=== PATIENT | female | born 1940 | race Caucasian/White ===

== ENCOUNTER → 2017-04-18 15:29 | Outpatient (REF) | payer MEDICARE, MEDICAID, SELFPAY ==
[2017-04-18 18:09] LABS: Carbon Dioxide 28 mmol/L (21.0-32.0); Chloride 119 mmol/L (98-107); Potassium 4.1 mmoL/L (3.5-5.1)
[2017-04-18 18:10] LABS: Alanine Aminotransferase 29 U/L (12-78); Albumin Level 2.7 gm/dL (3.4-5.0); Albumin/Globulin Ratio 1.1 (1.1-1.8); Alkaline Phosphatase 75 U/L (46-116); Anion Gap 11.1 mEq/L (5-15); Aspartate Amino Transferase 28 U/L (15-37); Bilirubin,Total 0.2 mg/dL (0.2-1.0); Blood Urea Nitrogen 28 mg/dL (7-18); Calcium 8.4 mg/dL (8.5-10.1); Creatinine,Serum 0.89 mg/dL (0.55-1.02); Estimated Glomerular Filt Rate 62 ml/min (>60); GFR (African American) 75 ML/MIN (>60); Globulin 2.4 gm/dl (1.3-3.2); Glucose 136 mg/dL (74-106); Total Protein,Serum 5.1 gm/dL (6.4-8.2)
[2017-04-18 18:16] LABS: Sodium 154 mmol/L (136-145)
== END ==
LOC: LAB 15:29
PROVIDERS: Visit Provider Emergency Medicine
DX: K59.00 Constipation, unspecified (principal)
CPT/HCPCS: 80053

== ENCOUNTER → 2017-04-19 08:24 | Outpatient (REF) | payer MEDICARE, MEDICAID, SELFPAY ==
[2017-04-19 12:18] LABS: Alanine Aminotransferase 24 U/L (12-78); Albumin/Globulin Ratio 1.2 (1.1-1.8); Alkaline Phosphatase 83 U/L (46-116); Anion Gap 8.9 mEq/L (5-15); Aspartate Amino Transferase 28 U/L (15-37); Bilirubin,Total 0.3 mg/dL (0.2-1.0); Blood Urea Nitrogen 25 mg/dL (7-18); Calcium 8.2 mg/dL (8.5-10.1); Carbon Dioxide 28 mmol/L (21.0-32.0); Chloride 117 mmol/L (98-107); Creatinine,Serum 0.73 mg/dL (0.55-1.02); Estimated Glomerular Filt Rate 78 ml/min (>60); GFR (African American) 94 ML/MIN (>60); Globulin 2.5 gm/dl (1.3-3.2); Glucose 69 mg/dL (74-106); Potassium 3.9 mmoL/L (3.5-5.1); Total Protein,Serum 5.5 gm/dL (6.4-8.2)
[2017-04-19 12:39] LABS: Sodium 150 mmol/L (136-145)
== END ==
LOC: LAB 08:24
PROVIDERS: Visit Provider Emergency Medicine
DX: K59.00 Constipation, unspecified (principal)
CPT/HCPCS: 80053

== ENCOUNTER → 2017-04-20 07:18 | Outpatient (REF) | payer MEDICARE, MEDICAID, SELFPAY ==
[2017-04-20 08:31] LABS: Sodium 147 mmol/L (136-145)
== END ==
LOC: LAB 07:18
PROVIDERS: Visit Provider Emergency Medicine
DX: K59.00 Constipation, unspecified (principal)
CPT/HCPCS: 84295

== ENCOUNTER 2017-04-22 14:47 | Emergency (ER) | payer MEDICARE, MEDICAID, SELFPAY ==
[2017-04-22 14:41] VITALS: BP 107/51; PULSE 61; RESP 16; TEMP 36.6; O2SAT 98; BMI 24.0
[2017-04-22 15:37] VITALS: BP 98/46; PULSE 59; RESP 16; O2SAT 95
[2017-04-22 16:30] VITALS: BP 101/54; PULSE 54; RESP 16; O2SAT 98
--- NOTE | 2017-04-22 17:02 | HMH.EDABDPAI ---
ED Disposition Clinical Impression: Constipation Qualifiers: Constipation type: unspecified constipation type Qualified Code(s): K59.00 - Constipation, unspecified Disposition: Xfer SNF Condition on Discharge: Fair Instructions: DI for Constipation Additional Instructions: Call Dr. Mendenhall or Dominick Benavides in the morning for further instructions on bowel regimen. Referrals: Bryce Mendenhall MD [Primary Care Provider] - - Critical Care Critical Care Time: No Attestation: On 04/22/17, the high probability of a clinically significant, sudden or life threatening deterioration of the following system(s) required my full and direct attention, intervention and personal management. The time I documented below is in addition to time spent performing reported procedures but includes the following listed in this critical care notation. Medical Decision Making Vital Signs: 04/22/17 14:41 04/22/17 15:37 04/22/17 16:30 Temperature 97.9 F Temperature Source Axillary Pulse Rate [Left Brachial] 61 59 L 54 L Respiratory Rate 16 16 16 Blood Pressure [Left Arm] 107/51 98/46 101/54 Blood Pressure Mean [Left Arm] 69 63 69 Blood Pressure Source [Left Arm] Automatic Cuff Automatic Cuff Automatic Cuff Blood Pressure Position [Left Arm] Right Lateral Sitting Sitting 02 Sat by Pulse Oximetry 98 95 98 Oxygen Delivery Method Room Air Room Air Room Air - Lab Data Lab Results 04/22/17 17:30: Stool Occult Blood Negative 04/22/17 18:50: WBC 4.1 L, RBC 3.74 L, Hgb 11.1 L, Hct 35.8 L, MCV 95.7, MCH 29.8, MCHC 31.1 L, RDW 15.6, Plt Count 96 L, MPV 10.8 H, Neut % (Auto) 39.0, Lymph % (Auto) 54.2 H, Mcintosh % (Auto) 4.6, Eos % (Auto) 1.8, Baso % (Auto) 0.4, Neut # (Auto) 1.6 L, Lymph # (Auto) 2.2, Mcintosh # (Auto) 0.2, Eos # (Auto) 0.1, Baso # (Auto) 0.0, Total Counted 100, Neutrophils % (Manual) 50, Lymphocytes % (Manual) 46, Monocytes % (Manual) 2, Eosinophils % (Manual) 2, Platelet Estimate Moderate decrease, Poikilocytosis 1+, Ovalocytes 1+ 04/22/17 18:50: Sodium 149 H, Potassium 4.1, Chloride 113 H, Carbon Dioxide 30, Anion Gap 10.1, BUN 15, Creatinine 0.64, Estimated Creat Clear 48, Estimated GFR 90, Est GFR ( Amer) 109, Glucose 85, Calcium 8.1 L, Total Bilirubin 0.2, AST 22, ALT 22, Alkaline Phosphatase 68, Total Protein 5.0 L, Albumin 2.3 L, Globulin 2.7, Albumin/Globulin Ratio 0.9 L, TSH 4.70 H, Free T4 0.94 Result diagrams: 04/22/17 18:50 04/22/17 18:50 Orders (Tests/Meds): ORDERS Category Date Time Status CT abdomen pelvis wo con Stat Cat Scan 04/22/17 17:28 Taken - CT Data CT Scan: Abdomen, Pelvis Time Received: 19:[address] Reviewed: Yes: I have viewed the radiologist's interpretation Findings Narrative: CT scan interpreted by [facility] radiologist. Faxed report received and reviewed: Significant amount of retained stool is present throughout the colon. Multiple stones in the right renal pelvis. Significant body wall edema and small bilateral pleural effusions. - Brandt Inquiry Pt receiving controlled substance: No Medical Decision Making Narrative: 8:15 PM: Discussed with Dr. Mendenhall. Return patient to long term and they will manage her bowel regimen. Abdominal Pain HPI - General Chief Complaint: Abdominal Pain Stated Complaint: CONSTIPATION Mode of Arrival: EMS Limitations: Altered Mental Status Description of Symptoms (Recalled from ER Triage Doc. by RN): PT HAS NOT HAD BM IN 15 DAYS PER ID REPORT - History of Present Illness HPI narrative: Patient was brought in by ambulance from long term with a report that she has not had a bowel movement in 15 days. Laxatives have been tried without results. The patient is not verbal at this time, not able to give me further information. - Related Data Home Medications Medication Instructions Recorded Confirmed Acetaminophen 500 mg PO Q4HP PRN 04/22/17 04/22/17 Alendronate Sodium 70 mg PO WEEKLY 04/22/17 04/22/17 Bisacodyl [Bisacodyl 10mg
--- NOTE | 2017-04-22 17:28 | CT_ITS ---
CT abdomen pelvis wo con CLINICAL INDICATION: ITS.REASON: no bm in 15 days ORDERING PHYSICIAN: Rio Tabor MD PATIENT AGE: 76 years COMPARISON: 03/18/2014 TECHNIQUE: Axial images obtained with sagittal and coronal reformats. PROCEDURE: Oral Contrast: None IV Contrast: None . FINDINGS: Lower thorax: Trace bilateral effusions ABDOMEN: Streak artifact from patient's arms down by her side. Stable 12 mm isodensity right hepatic lobe posteriorly consistent with a cyst. Spleen, adrenal glands, pancreas, and gallbladder have an unremarkable unenhanced appearance. There are small right renal stones present with a string of stones in the right renal pelvis measuring up to 4 mm. Linear calcification left kidney possibly within wall of the cyst. No hydronephrosis. No obstructing ureteral calculi. Dugan catheter is present within a nondistended urinary bladder. There is a significant amount of retained feces throughout the colon. There is no obvious rectal fecal impaction. There is diffuse subcutaneous edema throughout the body wall consistent with anasarca. This is more extensive on the right. Increased soft tissue density is present in the right subcostal region and could be related to a hematoma measuring 4.5 cm. There is a hemangioma involving the L1 vertebral body. No acute bony anomalies. IMPRESSION: 1. Significant amount of retained stool throughout the colon. 2. Right nephrolithiasis. 3. Body wall edema and small bilateral effusions suggesting anasarca. 4. Possible hematoma right subcostal region at the costochondral junction
[2017-04-22 17:48] LABS: Occult Blood,Stool Negative (Negative)
[2017-04-22 19:02] LABS: Basophils % 0.4 % (0.1-2.0); Eosinophils # 0.1 K/mm3 (0.0-0.4); Eosinophils % 1.8 % (0.1-12.0); Hematocrit 35.8 % (37.0-47.0); Hemoglobin 11.1 g/dL (12.2-16.2); Lymphocytes # 2.2 K/mm3 (0.7-4.5); Lymphocytes % 54.2 K/mm3 (10-50); Mean Corpuscular HGB Conc 31.1 g/dL (31.8-35.4); Mean Corpuscular Hemoglobin 29.8 pg (27.0-31.2); Mean Corpuscular Volume 95.7 fl (81-99); Mean Platelet Volume 10.8 fl (7.4-10.4); Monocytes # 0.2 K/mm3 (0.1-1.0); Monocytes % 4.6 % (1.7-9.3); Neutrophils # 1.6 K/mm3 (1.8-7.8); Platelet Count 96 K/mm3 (142-424); Red Blood Count 3.74 M/mm3 (4.20-5.40); Red Cell Distribution Width 15.6 % (11.5-17.5); White Blood Count 4.1 K/mm3 (4.8-10.8)
[2017-04-22 19:08] LABS: MANUAL DIFFERENTIAL MANUAL DIFFERENTIAL (MANUAL DIFF)
[2017-04-22 19:33] LABS: Alanine Aminotransferase 22 U/L (12-78); Albumin Level 2.3 gm/dL (3.4-5.0); Albumin/Globulin Ratio 0.9 (1.1-1.8); Alkaline Phosphatase 68 U/L (46-116); Anion Gap 10.1 mEq/L (5-15); Aspartate Amino Transferase 22 U/L (15-37); Bilirubin,Total 0.2 mg/dL (0.2-1.0); Blood Urea Nitrogen 15 mg/dL (7-18); Calcium 8.1 mg/dL (8.5-10.1); Carbon Dioxide 30 mmol/L (21.0-32.0); Chloride 113 mmol/L (98-107); Creatinine Clearance Estimated 48 mL/min (0-300); Creatinine,Serum 0.64 mg/dL (0.55-1.02); Estimated Glomerular Filt Rate 90 ml/min (>60); Free T4 (Free Thyroxine) 0.94 ng/dl (0.76-1.46); GFR (African American) 109 ML/MIN (>60); Globulin 2.7 gm/dl (1.3-3.2); Glucose 85 mg/dL (74-106); Potassium 4.1 mmoL/L (3.5-5.1); Sodium 149 mmol/L (136-145)
[2017-04-22 20:24] LABS: Eosinophils % 2 % (0-3); Lymphocytes % 46 % (10-50); Monocytes % 2 % (2-9); Neutrophils % 50 % (42-76); Platelet Estimate Moderate Decrease; Poikilocytosis 1+; Total Cells Counted 100
[2017-04-22 20:25] LABS: Ovalocytes 1+
[2017-04-22 20:46] VITALS: BP 135/67; PULSE 55; RESP 16; O2SAT 98
--- NOTE | 2017-04-22 21:00 | PC.NURSE ---
CALLED REPORT TO KOTA AT [facility].
--- NOTE | 2017-04-22 21:00 | PC.NURSE ---
CALLED [facility] FOR TRANSPORTATION
== END 2017-04-22 21:50 ==
PROVIDERS: Emergency Provider Emergency Medicine; Family Provider Emergency Medicine; PCP Emergency Medicine
DX: K59.00 Constipation, unspecified (principal); Z79.899 Other long term (current) drug therapy
CPT/HCPCS: 74176; 80053; 82272; 84439; 84443; 85007; 85025; 99283; G0328

== ENCOUNTER → 2017-07-26 13:34 | Outpatient (CLI) | payer MEDICARE, MEDICAID, SELFPAY ==
[2017-07-26 15:56] LABS: Microscopic, Urine URINE MICROSCOPIC (MICROSCOPIC)
[2017-07-26 16:21] LABS: Basophils % 0.2 % (0.1-2.0); Eosinophils % 0.1 % (0.1-12.0); Hematocrit 42.7 % (37.0-47.0); Hemoglobin 13.7 g/dL (12.2-16.2); Lymphocytes # 0.7 K/mm3 (0.7-4.5); Lymphocytes % 6.1 K/mm3 (10-50); Mean Corpuscular HGB Conc 32.1 g/dL (31.8-35.4); Mean Corpuscular Hemoglobin 31.7 pg (27.0-31.2); Mean Corpuscular Volume 98.6 fl (81-99); Mean Platelet Volume 9.8 fl (7.4-10.4); Monocytes # 0.4 K/mm3 (0.1-1.0); Monocytes % 3.4 % (1.7-9.3); Neutrophils # 10.6 K/mm3 (1.8-7.8); Neutrophils % 90.2 % (37.0-80.0); Platelet Count 117 K/mm3 (142-424); Red Blood Count 4.33 M/mm3 (4.20-5.40); Red Cell Distribution Width 12.8 % (11.5-17.5); White Blood Count 11.8 K/mm3 (4.8-10.8)
[2017-07-26 16:24] LABS: MANUAL DIFFERENTIAL MANUAL DIFFERENTIAL (MANUAL DIFF)
[2017-07-26 16:39] LABS: Appearance,Urine TURBID (Clear); Bilirubin,Urine Negative (Negative); Blood, Urine 2+ (Negative); Color,Urine YELLOW (Yellow); Glucose,Urine (UA) Negative (Negative); Ketones,Urine Negative (Negative); Leukocyte Esterase,Urine 3+ (Negative); Nitrate,Urine POSITIVE (Negative); Protein,Urine 1+ (Negative); Urobilinogen,Urine 0.2 EU/dl (0.2)
[2017-07-26 16:47] LABS: Alanine Aminotransferase 20 U/L (12-78); Albumin/Globulin Ratio 1.1 (1.1-1.8); Alkaline Phosphatase 70 U/L (46-116); Anion Gap 13.8 mEq/L (5-15); Aspartate Amino Transferase 25 U/L (15-37); Bilirubin,Total 0.3 mg/dL (0.2-1.0); Blood Urea Nitrogen 25 mg/dL (7-18); Calcium 9.1 mg/dL (8.5-10.1); Carbon Dioxide 26 mmol/L (21.0-32.0); Chloride 110 mmol/L (98-107); Creatinine,Serum 1.22 mg/dL (0.55-1.02); Estimated Glomerular Filt Rate 43 ml/min (>60); GFR (African American) 52 ML/MIN (>60); Globulin 2.8 gm/dl (1.3-3.2); Glucose 108 mg/dL (74-106); Potassium 3.8 mmoL/L (3.5-5.1); Sodium 146 mmol/L (136-145); Total Protein,Serum 5.8 gm/dL (6.4-8.2)
[2017-07-26 16:51] LABS: Bacteria,Urine 4+ /lpf; WBC,Urine 20-50 #/hpf (0-3)
[2017-07-26 17:36] LABS: Lymphocytes % 7 % (10-50); Neutrophils % 81 % (42-76); Platelet Estimate Slight Decrease; Total Cells Counted 100
[2017-07-26 17:37] LABS: Macrocytosis 1+; Toxic Granulation 1+
== END ==
PROVIDERS: Visit Provider Emergency Medicine
DX: N39.0 Urinary tract infection, site not specified (principal)
CPT/HCPCS: 80053; 81001; 85007; 85025; 87086; 87088; 87186

== ENCOUNTER → 2017-09-24 15:09 | Outpatient (CLI) | payer MEDICARE, MEDICAID, SELFPAY | PROVIDERS: Visit Provider Emergency Medicine | DX: I10 Essential (primary) hypertension (principal) ==

== ENCOUNTER 2017-09-29 10:25 | Inpatient (IN) ==
[2017-09-29 11:08] LABS: Appearance,Urine CLOUDY (Clear); Bilirubin,Urine Negative (Negative); Blood, Urine 3+ (Negative); Color,Urine YELLOW (Yellow); Glucose,Urine (UA) Negative (Negative); Ketones,Urine Negative (Negative); Leukocyte Esterase,Urine 2+ (Negative); Microscopic, Urine URINE MICROSCOPIC (MICROSCOPIC); Protein,Urine 2+ (Negative); Specific Gravity, Urine >= 1.030 (1.005-1.030); Urobilinogen,Urine 0.2 EU/dl (0.2)
--- NOTE | 2017-09-29 11:12 | Emergency Department Note ---
ED Disposition Clinical Impression: Hypernatremia, Hyperchloremia UTI (urinary tract infection) Qualifiers: Urinary tract infection type: acute cystitis Hematuria presence: without hematuria Qualified Code(s): N30.00 - Acute cystitis without hematuria Disposition: Admitted as Observation Condition on Discharge: Fair Referrals: Bryce Mendenhall MD [Primary Care Provider] - Time of Disposition: 12:45 - Critical Care Critical Care Time: Yes Attestation: On 09/29/17, the high probability of a clinically significant, sudden or life threatening deterioration of the following system(s) required my full and direct attention, intervention and personal management. The time I documented below is in addition to time spent performing reported procedures but includes the following listed in this critical care notation. Total Critical Care Time: 90 Vital system(s) involved:: Circulatory Failure My critical care processes included: Assessment & monitoring of V/S, Initial and Re-exams, Data Review/Interpretation, Coordinating Care, Medication Orders and management, Documentation Medical Decision Making - Medical Records Medical records reviewed: Yes: I reviewed the patient's medical records. - Brandt Inquiry Pt receiving controlled substance: No Vital Signs: 09/29/17 10:28 09/29/17 11:11 09/29/17 11:45 Temperature 97.9 F Temperature Source Oral Pulse Rate [Left Radial] 61 64 86 Respiratory Rate 20 20 16 Blood Pressure [Left Arm] 121/71 107/78 113/78 Blood Pressure Mean [Left Arm] 87 87 89 Blood Pressure Source [Left Arm] Automatic Cuff Automatic Cuff Automatic Cuff Blood Pressure Position [Left Arm] Sitting Supine 02 Sat by Pulse Oximetry 98 97 99 Oxygen Delivery Method Room Air 09/29/17 12:44 Temperature Temperature Source Pulse Rate [Left Radial] 71 Respiratory Rate 20 Blood Pressure [Left Arm] 133/52 Blood Pressure Mean [Left Arm] 79 Blood Pressure Source [Left Arm] Automatic Cuff Blood Pressure Position [Left Arm] Supine 02 Sat by Pulse Oximetry 100 Oxygen Delivery Method Room Air - Lab Data Lab results reviewed: Yes: I reviewed the patient's lab results. Lab Results 09/29/17 11:05: Urine Color Yellow, Urine Appearance Cloudy, Urine pH 6.0, Ur Specific [place] >= 1.030, Urine Protein 2+, Urine Glucose (UA) Negative, Urine Ketones Negative, Urine Blood 3+, Urine Nitrate Negative, Urine Bilirubin Negative, Urine Urobilinogen 0.2, Ur Leukocyte Esterase 2+ A, Urine RBC 10-20, Urine WBC 50-100, Ur Squamous Epith Cells Occasional, Urine Bacteria 1+ 09/29/17 11:20: WBC 6.1, RBC 4.61, Hgb 13.6, Hct 46.9, MCV 101.7 H, MCH 29.6, MCHC 29.1 L, RDW 13.6, Plt Count 99 L, MPV 11.2 H, Neut % (Auto) 55.9, Lymph % ( Auto) 38.0, [place] % (Auto) 3.1, Eos % (Auto) 2.4, Baso % (Auto) 0.6, Neut # (Auto ) 3.4, Lymph # (Auto) 2.3, [place] # (Auto) 0.2, Eos # (Auto) 0.2, Baso # (Auto) 0.0 09/29/17 12:00: Sodium 171 H*, Potassium 4.0, Chloride 133 H, Carbon Dioxide 31 , Anion Gap 11.0, BUN 31 H, Creatinine 0.98, Estimated Creat Clear 34, Estimated GFR 55 L, Est GFR ( Amer) 67, Glucose 94, Calcium 9.7, Total Bilirubin 0.3, AST 16, ALT 18, Alkaline Phosphatase 76, Total Protein 6.6, Albumin 3.1 L, Globulin 3.5 H, Albumin/Globulin Ratio 0.9 L 09/29/17 12:00: Lactic Acid 1.8 Result diagrams: 09/29/17 11:20 09/29/17 12:00 Orders (Tests/Meds): ED MEDICATIONS Generic Name Dose Route Start Last Admin Trade Name Holly PRN Reason Stop Dose Admin Ceftriaxone Sodium 1 gm/ 50 mls @ 100 mls/hr 09/29/17 12:45 09/29/17 12:42 Sodium Chloride IV 10/13/17 12:44 100 mls/hr Q24H FRANDY Administration Protocol Sodium Chloride 1,000 mls @ 75 mls/hr 09/29/17 12:45 09/29/17 12:45 Sod Chlor 0.45% 1000ml Bag IV 10/29/17 12:44 75 mls/hr .[id number] FRANDY Administration ORDERS Category Date Time Status Blood Culture Stat Micro 09/29/17 12:00 Received Urine Culture Stat Micro 09/29/17 11:05 Received - Physician Consults Physician Consulted: Dominick Benavides Time: 12:52 Reason -: Admission, Pt condition Comment/Response: Advised of patient's presentation and findings, agreeable with hospitalization. Requested patient to be switched from Rocephin to IV Levaquin. Weakness HPI - General Chief complaint: Weakness Stated complaint: UTI, motteling on evaristo feet Time Seen by Provider: 09/29/17 10:33 Mode of Arrival: EMS Source of Information: EMS Limitations: Pt has dementia Description of Symptoms (Recalled from ER Triage Doc. by RN): Pt to ER for further evalutation per PCP request r/t UTI and motteling on evaristo feet. - History of Present Illness HPI Narrative: This is a 77-year-old shelter female patient sent to the emergency room by Dominick Benavides who saw patient while making rounds at the shelter, concerned with possible sepsis and mottling of bilateral feet. Patient has history of chronic dementia, no information is available about patient's chronic [place] mental status. She is currently on Keflex for a UTI. MD Complaint: generalized weakness Onset (ago): unknown Duration: constant Location: generalized Migration: none Relieving factors: rest Exacerbating factors: movement Context: new medication - Related Data Home Medications Medication Instructions Recorded Confirmed Acetaminophen 500 mg PO Q4HP PRN 04/22/17 04/22/17 Alendronate Sodium 70 mg PO WEEKLY 04/22/17 04/22/17 Bisacodyl [Bisacodyl 10mg Supp] 10 mg RC DAILYP PRN 04/22/17 04/22/17 Calcium Carbonate/Vitamin D2 1 each PO BID 04/22/17 04/22/17 [Oyster Shell Calcium-Vit D Tab] Donepezil HCl [Aricept] 5 mg PO HS 04/22/17 04/22/17 Ipratropium/Albuterol Sulfate 3 ml IH Q6HP PRN 04/22/17 04/22/17 [Duoneb 3mL neb] Lactulose [Lactulose 10gm/15ml 10 gm PO DAILY PRN 04/22/17 04/22/17 Oral Soln] Levothyroxine Sodium 50 mcg PO DAILY 04/22/17 04/22/17 [Levothyroxine 50mcg (0.05mg) Tab] Loperamide HCl [Loperamide] 2 mg PO Q3HP PRN 04/22/17 04/22/17 Meloxicam 7.5 mg PO BID 04/22/17 04/22/17 Mirtazapine 45 mg PO HS 04/22/17 04/22/17 OLANZapine [Olanzapine] 5 mg PO HS 04/22/17 04/22/17 Potassium Chloride [Klor-Con 10mEq 10 meq PO DAILY 04/22/17 04/22/17 tab] Ropinirole HCl 1 mg PO BID 04/22/17 04/22/17 Sennosides [Senna] 8.6 mg PO TID 04/22/17 04/22/17 Simvastatin 10 mg PO HS 04/22/17 04/22/17 Allergies Allergy/AdvReac Type Severity Reaction Status Date / Time erythromycin base Allergy Unknown Verified 09/15/17 10:01 [From ERYTHROCIN] [facility] History I have reviewed the patient's past medical history: Yes Medical History: Reports:: Hypertension, Kidney Stones Denies:: Diabetes Mellitus Type 2 Other Medical History: Reports: Anemia - Social History Smoking Status: Unknown if ever smoked Alcohol Intake: never - Psychiatric History Expresses thoughts of harming self/others: None Suicide Plan Description: No Plan Family Hx:: Unable to obtain ROS Obtained: Yes All systems reviewed & no additional complaints, Yes Systems reviewed as appropriate & no additional complaints - Neurologic Neurologic: Reports system reviewed and no additional complaints, except as docu , Reports as per HPI, Reports weakness (Generalized) Physical Exam - General General appearance: alert, in no apparent distress - Head Head exam: atraumatic, normocephalic, normal inspection - Neck Neck exam: Present: normal inspection, full ROM, trachea midline. Absent: meningismus, lymphadenopathy - Chest Chest inspection: Present: normal inspection, symmetric chest wall rise. Absent : tenderness - Respiratory Respiratory exam: Present: normal lung sounds bilaterally. Absent: respiratory distress - Cardiovascular Cardiovascular exam: Present: regular rate, normal rhythm. Absent: JVD - Abdominal Exam Abdominal exam: Present: soft, normal bowel sounds. Absent: distention, tenderness, guarding - Extremities Exam Extremities exam: Present: normal inspection, full ROM, normal capillary refill. Absent: calf tenderness - Back Exam Back exam: Present: normal inspection. Absent: tenderness - Neurological Exam Neurological exam: Present: alert, other (Consistent with dementia, patient is verbal but confused) - Psychiatric Psychiatric exam: Present: flat affect - Skin Skin exam: Present: warm, dry, normal color, other (mottled plantar areas) - Lymphatic Lymphatic Findings: no adenopathy
[2017-09-29 11:21] LABS: Squamous Epithelial Cell,Urine Occasional #/hpf (0-5)
[2017-09-29 11:22] LABS: Bacteria,Urine 1+ /lpf; WBC,Urine 50-100 #/hpf (0-3)
[2017-09-29 11:37] LABS: Basophils % 0.6 % (0.1-2.0); Eosinophils # 0.2 K/mm3 (0.0-0.4); Eosinophils % 2.4 % (0.1-12.0); Hematocrit 46.9 % (37.0-47.0); Hemoglobin 13.6 g/dL (12.2-16.2); Lymphocytes # 2.3 K/mm3 (0.7-4.5); Mean Corpuscular HGB Conc 29.1 g/dL (31.8-35.4); Mean Corpuscular Hemoglobin 29.6 pg (27.0-31.2); Mean Corpuscular Volume 101.7 fl (81-99); Mean Platelet Volume 11.2 fl (7.4-10.4); Monocytes # 0.2 K/mm3 (0.1-1.0); Monocytes % 3.1 % (1.7-9.3); Neutrophils # 3.4 K/mm3 (1.8-7.8); Neutrophils % 55.9 % (37.0-80.0); Platelet Count 99 K/mm3 (142-424); Red Blood Count 4.61 M/mm3 (4.20-5.40); Red Cell Distribution Width 13.6 % (11.5-17.5); White Blood Count 6.1 K/mm3 (4.8-10.8)
[2017-09-29 12:36] LABS: Albumin Level 3.1 gm/dL (3.4-5.0); Albumin/Globulin Ratio 0.9 (1.1-1.8); Bilirubin,Total 0.3 mg/dL (0.2-1.0); Calcium 9.7 mg/dL (8.5-10.1); Globulin 3.5 gm/dl (1.3-3.2); Total Protein,Serum 6.6 gm/dL (6.4-8.2)
--- NOTE | 2017-09-29 13:34 | Pharmacy Consult Notes ---
[facility] Pharmacy VTE Monitoring - Patient Demographics Admission date: 09/29/17 Report Date: 09/29/17 Time: 13:33 Allergies/Adverse Reactions: Patient Allergies erythromycin base [From ERYTHROCIN] Allergy (Unknown, Verified 09/15/17 10:01) Height: 1.55 m Weight: 40.03 kg Patient Problems: Current Active Problems Hypernatremia (Acute) Hyperchloremia (Acute) UTI (urinary tract infection) (Acute) - VTE Risk Labs: VTE Related Lab Results Hgb 13.6 g/dL (12.2-16.2) 09/29/17 11:20 Hct 46.9 % (37.0-47.0) 09/29/17 11:20 Plt Count 99 K/mm3 (142-424) L 09/29/17 11:20 BUN 31 mg/dL (7-18) H 09/29/17 12:00 Creatinine 0.98 mg/dL (0.55-1.02) 09/29/17 12:00 Estimated Creat Clear 34 mL/min (0-300) 09/29/17 12:00 Was VTE Risk Assessment Performed: Yes Clinical Trial Participant: No - Prophylaxis VTE Prophylaxis Ordered?: Yes Types of VTE Prophylaxis: TEDS Knee High
[2017-09-29 19:14] LABS: Potassium 3.8 mmoL/L (3.5-5.1)
[2017-09-29 19:16] LABS: Basophils % 0.7 % (0.1-2.0); Eosinophils # 0.2 K/mm3 (0.0-0.4); Eosinophils % 3.1 % (0.1-12.0); Lymphocytes # 2.5 K/mm3 (0.7-4.5); Lymphocytes % 40.5 K/mm3 (10-50); Mean Corpuscular HGB Conc 28.8 g/dL (31.8-35.4); Mean Corpuscular Hemoglobin 28.8 pg (27.0-31.2); Mean Corpuscular Volume 100.1 fl (81-99); Mean Platelet Volume 10.9 fl (7.4-10.4); Monocytes # 0.2 K/mm3 (0.1-1.0); Neutrophils # 3.2 K/mm3 (1.8-7.8); Neutrophils % 51.7 % (37.0-80.0); Platelet Count 96 K/mm3 (142-424); Red Cell Distribution Width 13.4 % (11.5-17.5); White Blood Count 6.1 K/mm3 (4.8-10.8)
[2017-09-29 19:22] LABS: Anion Gap 8.8 mEq/L (5-15)
[2017-09-29 19:26] LABS: Calcium 8.8 mg/dL (8.5-10.1)
--- NOTE | 2017-09-30 09:01 | History & Physical Report ---
*Admission Date: 09/29/17 *Chief complaint: weakness *History of present illness: this elderly wf from [facility] who has change in mental status and was lower ext mottled and had failed op ivf at [facility] and was sent to ed for eval- she is poor historian and no specific c/o -his is a 77-year-old half-way female patient sent to the emergency room by Dominick Benavides who saw patient while making rounds at the half-way, concerned with possible sepsis and mottling of bilateral feet. Patient has history of chronic dementia, no information is available about patient's chronic base[place] mental status. She is currently on Keflex for a UTI. MD Complaint: generalized weakness [facility] History I have reviewed the patient's past medical history: Yes Medical History: Reports:: Hypertension, Kidney Stones Denies:: Diabetes Mellitus Type 1, Diabetes Mellitus Type 2 Other Medical History: Reports: Anemia, Cataracts - *Social History Smoking Status: Unknown if ever smoked Alcohol Intake: never Occupational Status: retired Housing: half-way - Psychiatric History Expresses thoughts of harming self/others: None Suicide Plan Description: No Plan *Family Hx:: Unable to obtain Review of Systems - Review of Systems Review of systems:: pertinent systems reviewed and negative unless documented below - Constitutional Reports anorexia - Eyes Denies change in vision - ENT Denies dizziness - *Cardiovascular Denies chest pain at rest - *Respiratory Denies cough - *Gastrointestinal Denies abdominal pain, Denies vomiting - *Genitourinary Denies blood in urine - *Musculoskeletal Reports joint pain, Denies joint swelling - Integumentary/Breasts Denies rash - *Neurologic Reports weakness (Generalized), Denies seizure-like activity - Psychiatric Reports confusion Meds Home Medications Medication Instructions Recorded Confirmed Type Acetaminophen 500 mg PO Q4HP PRN 04/22/17 09/29/17 History Alendronate Sodium 70 mg PO WEEKLY 04/22/17 09/29/17 History Bisacodyl [Bisacodyl 10mg Supp] 10 mg RC DAILYP PRN 04/22/17 09/29/17 History Calcium Carbonate/Vitamin D2 1 each PO BID 04/22/17 09/29/17 History [Oyster Shell Calcium-Vit D Tab] Donepezil HCl [Aricept] 5 mg PO HS 04/22/17 09/29/17 History Ipratropium/Albuterol Sulfate 3 ml IH Q6HP PRN 04/22/17 09/29/17 History [Duoneb 3mL neb] Lactulose [Lactulose 10gm/15ml 10 gm PO DAILY PRN 04/22/17 09/29/17 History Oral Soln] Levothyroxine Sodium 50 mcg PO DAILY 04/22/17 09/29/17 History [Levothyroxine 50mcg (0.05mg) Tab] Loperamide HCl [Loperamide] 2 mg PO Q3HP PRN 04/22/17 09/29/17 History Meloxicam 7.5 mg PO BID 04/22/17 09/29/17 History Mirtazapine 45 mg PO HS 04/22/17 09/29/17 History OLANZapine [Olanzapine] 2.5 mg PO HS 04/22/17 09/29/17 History Potassium Chloride [Klor-Con 10mEq 10 meq PO DAILY 04/22/17 09/29/17 History tab] Ropinirole HCl 1 mg PO BID 04/22/17 09/29/17 History Sennosides [Senna] 8.6 mg PO TID 04/22/17 09/29/17 History Simvastatin 10 mg PO HS 04/22/17 09/29/17 History Donepezil HCl [Aricept 5mg] 5 mg PO HS 09/29/17 09/29/17 History cephALEXin [Keflex 500mg Cap] 500 mg PO BID 09/29/17 09/29/17 History Allergies Allergy/AdvReac Type Severity Reaction Status Date / Time erythromycin base Allergy Unknown Verified 09/15/17 10:01 [From ERYTHROCIN] Exam Vital signs and Labs for Last 24 Hours: Temp Pulse Resp BP Pulse Ox 98.5 F 63 16 142/68 99 09/30/17 07:38 09/30/17 07:38 09/30/17 07:38 09/30/17 07:38 09/30/17 07:38 Laboratory Results - last 24 hr 09/29/17 11:05: Urine Color Yellow, Urine Appearance Cloudy, Urine pH 6.0, Ur Specific [place] >= 1.030, Urine Protein 2+, Urine Glucose (UA) Negative, Urine Ketones Negative, Urine Blood 3+, Urine Nitrate Negative, Urine Bilirubin Negative, Urine Urobilinogen 0.2, Ur Leukocyte Esterase 2+ A, Urine RBC 10-20, Urine WBC 50-100, Ur Squamous Epith Cells Occasional, Urine Bacteria 1+ 09/29/17 11:20: WBC 6.1, RBC 4.61, Hgb 13.6, Hct 46.9, MCV 101.7 H, MCH 29.6, MCHC 29.1 L, RDW 13.6, Plt Count 99 L, MPV 11.2 H, Neut % (Auto) 55.9, Lymph % ( Auto) 38.0, [place] % (Auto) 3.1, Eos % (Auto) 2.4, Baso % (Auto) 0.6, Neut # (Auto ) 3.4, Lymph # (Auto) 2.3, [place] # (Auto) 0.2, Eos # (Auto) 0.2, Baso # (Auto) 0.0 09/29/17 12:00: Sodium 171 H*, Potassium 4.0, Chloride 133 H, Carbon Dioxide 31 , Anion Gap 11.0, BUN 31 H, Creatinine 0.98, Estimated Creat Clear 34, Estimated GFR 55 L, Est GFR ( Amer) 67, Glucose 94, Calcium 9.7, Total Bilirubin 0.3, AST 16, ALT 18, Alkaline Phosphatase 76, Total Protein 6.6, Albumin 3.1 L, Globulin 3.5 H, Albumin/Globulin Ratio 0.9 L 09/29/17 12:00: Lactic Acid 1.8 09/29/17 18:50: WBC 6.1, RBC 4.50, Hgb 13.0, Hct 45.0, MCV 100.1 H, MCH 28.8, MCHC 28.8 L, RDW 13.4, Plt Count 96 L, MPV 10.9 H, Neut % (Auto) 51.7, Lymph % ( Auto) 40.5, [place] % (Auto) 4.0, Eos % (Auto) 3.1, Baso % (Auto) 0.7, Neut # (Auto ) 3.2, Lymph # (Auto) 2.5, [place] # (Auto) 0.2, Eos # (Auto) 0.2, Baso # (Auto) 0.0 09/29/17 18:50: Sodium 166 H*, Potassium 3.8, Chloride 130 H, Carbon Dioxide 31 , Anion Gap 8.8, BUN 29 H, Creatinine 0.89, Estimated Creat Clear 30, Estimated GFR 62, Est GFR ( Amer) 74, Glucose 92, Calcium 8.8 I & O for Last 24 hours: Intake & Output 09/27/17 09/28/17 09/29/17 09/30/17 11:59 11:59 11:59 11:59 Intake Total 1037 / 1037 Balance 1037 / 1037 Weight 100 lb 88 lb 4 oz - Constitutional no acute distress, cachectic - *Routine HEENT Exam Head: Present: normocephalic Eye: Present: EOMI, PERRL. Absent: conjunctival icterus ENT: Present: mucous membranes dry - *Routine Neck Exam Absent: JVD - *Routine Respiratory Exam Present: decreased breath sounds - *Routine Cardiovascular Exam Present: RRR, murmur, S4 - *Routine Abdominal Exam Present: soft - *Routine Extremities Exam Absent: calf tenderness - *Routine Skin Exam Present: intact - *Routine Neurological Exam Present: alert, CN II-XII intact - Routine Psychiatric Exam Present: unable to assess H&P: Result - Labs Labs: Short CBC 09/29/17 09/29/17 Range/Units 11:20 18:50 WBC 6.1 6.1 (4.8-10.8) K/mm3 Hgb 13.6 13.0 (12.2-16.2) g/dL Hct 46.9 45.0 (37.0-47.0) % Plt Count 99 L 96 L (142-424) K/mm3 BMP 09/29/17 09/29/17 12:00 18:50 Sodium 171 H* 166 H* Potassium 4.0 3.8 Chloride 133 H 130 H Carbon Dioxide 31 31 BUN 31 H 29 H Creatinine 0.98 0.89 Glucose 94 92 Calcium 9.7 8.8 Liver Function 09/29/17 Range/Units 12:00 Total Bilirubin 0.3 (0.2-1.0) mg/dL AST 16 (15-37) U/L ALT 18 (12-78) U/L Alkaline Phosphatase 76 (46-116) U/L Albumin 3.1 L (3.4-5.0) gm/dL Urine 09/29/17 Range/Units 11:05 Urine Color Yellow (Yellow) Urine Appearance Cloudy (Clear) Urine pH 6.0 (5.0-8.5) Ur Specific [place] >= 1.030 (1.005-1.030) Urine Protein 2+ (Negative) Urine Glucose (UA) Negative (Negative) Assessment and Plan (1) Hypernatremia Current visit: Yes Status: Acute Category: Medical Code(s): E87.0 - Hyperosmolality and hypernatremia (2) UTI (urinary tract infection) Current visit: Yes Status: Acute Qualifiers: Urinary tract infection type: acute cystitis Hematuria presence: without hematuria Qualified Code(s): N30.00 - Acute cystitis without hematuria Category: Medical Code(s): N39.0 - Urinary tract infection, site not specified
--- NOTE | 2017-09-30 10:09 | Pharmacy Consult Notes ---
[facility] Pharmacy VTE Monitoring - Patient Demographics Admission date: 09/29/17 Report Date: 09/30/17 Time: 10:09 Allergies/Adverse Reactions: Patient Allergies erythromycin base [From ERYTHROCIN] Allergy (Unknown, Verified 09/15/17 10:01) Height: 1.55 m Weight: 40.03 kg Patient Problems: Current Active Problems Hypernatremia (Acute) Hyperchloremia (Acute) UTI (urinary tract infection) (Acute) - VTE Risk Labs: VTE Related Lab Results Hgb 13.0 g/dL (12.2-16.2) 09/29/17 18:50 Hct 45.0 % (37.0-47.0) 09/29/17 18:50 Plt Count 96 K/mm3 (142-424) L 09/29/17 18:50 BUN 29 mg/dL (7-18) H 09/29/17 18:50 Creatinine 0.89 mg/dL (0.55-1.02) 09/29/17 18:50 Estimated Creat Clear 30 mL/min (0-300) 09/29/17 18:50 Was VTE Risk Assessment Performed: Yes VTE Score: 4 VTE Risk Level: Low Risk Clinical Trial Participant: No - Prophylaxis VTE Prophylaxis Ordered?: Yes Types of VTE Prophylaxis: Pharmacological Pharmacologic Type: Enoxaparin
[2017-09-30 11:17] LABS: Anion Gap 12.7 mEq/L (5-15); Calcium 8.4 mg/dL (8.5-10.1); Potassium 3.7 mmoL/L (3.5-5.1); T4 (Thyroxine) 9.9 ug/dl (4.7-13.3); Thyroid Stimulating Hormone 0.26 uIU/ml (0.358-3.740)
--- NOTE | 2017-10-01 10:06 | Progress Note ---
Internal Medicine - PN: Subj *Date: 10/01/17 *Time: 10:03 Interval history: pt doing better but has low plts and will check doppler and stop lovenox Exam Vital signs and Labs for Last 24 Hours: Temp Pulse Resp BP Pulse Ox 97.8 F 66 18 123/54 97 10/01/17 07:49 10/01/17 07:49 10/01/17 07:49 10/01/17 07:49 10/01/17 07:49 Laboratory Results - last 24 hr 09/30/17 10:35: Sodium 159 H*, Potassium 3.7, Chloride 124 H, Carbon Dioxide 26 , Anion Gap 12.7, BUN 24 H, Creatinine 0.78, Estimated Creat Clear 30, Estimated GFR 72, Est GFR ( Amer) 87, Glucose 81, Calcium 8.4 L, TSH 0.26 L D, Thyroxine (T4) 9.9 10/01/17 05:57: Plt Count 81 L I & O for Last 24 hours: Intake & Output 09/28/17 09/29/17 09/30/17 10/01/17 11:59 11:59 11:59 11:59 Intake Total 1037 / 1037 2540 / 2540 Balance 1037 / 1037 2540 / 2540 Weight 100 lb 88 lb 4 oz 92 lb 9 oz Microbiology Reports for the Last 24 Hours: Microbiology 09/29/17 11:05 Urine,Catheterized Urine Culture - Preliminary - Constitutional no acute distress - *Routine HEENT Exam Head: Present: normocephalic Eye: Present: EOMI, PERRL ENT: Present: mucous membranes dry - *Routine Neck Exam Absent: JVD - *Routine Respiratory Exam Present: decreased breath sounds - *Routine Cardiovascular Exam Present: RRR, murmur - *Routine Abdominal Exam Present: soft - *Routine Extremities Exam Present: tenderness Comments: swollen lower ext with skin tear - *Routine Skin Exam Absent: lesions - *Routine Neurological Exam Present: alert, CN II-XII intact - Routine Psychiatric Exam Present: unable to assess Assessment and Plan (1) Hypernatremia Current visit: Yes Status: Acute Category: Medical Code(s): E87.0 - Hyperosmolality and hypernatremia (2) UTI (urinary tract infection) Current visit: Yes Status: Acute Qualifiers: Urinary tract infection type: acute cystitis Hematuria presence: without hematuria Qualified Code(s): N30.00 - Acute cystitis without hematuria Category: Medical Code(s): N39.0 - Urinary tract infection, site not specified
[2017-10-01 10:34] LABS: Anion Gap 6.6 mEq/L (5-15); Calcium 8.1 mg/dL (8.5-10.1); Potassium 3.6 mmoL/L (3.5-5.1)
--- NOTE | 2017-10-01 11:39 | Non-Invasive Vascular Report ---
"Venous Exam IMPRESSIONS Deep vein thrombosis involving the right common femoral vein, right femoral vein, right popliteal vein, right saphenofemoral junction, right profunda femoral, left common femoral vein, left femoral vein, Left saphenofemoral junction, and Left profunda femoral Complete lower extremity venous duplex evaluation. Doppler flow study including spectral analysis, color and oliveira scale imaging. Location: Bedside. Patient status: Inpatient. Tables: Venous flow and imaging: + + + + |Location |Overall |Flow properties | + + + + |Right common femoral |Partially |Diminished phasicity; | | |occluded |spontaneous; diminished | | | |augmentation; | | | |noncompressible | + + + + |Right saphenofemoral |Totally occluded |Noncompressible | |junction | | | + + + + |Right profunda femoral |Partially |Noncompressible | | |occluded | | + + + + |Right femoral |Partially |Diminished phasicity; not | | |occluded |spontaneous; diminished | | | |augmentation; | | | |noncompressible; no reflux | + + + + |Right greater saphenous |Patent |Normal phasicity; | | | |spontaneous; normal | | | |augmentation; compressible | + + + + |Right popliteal |Totally occluded |Diminished phasicity; | | | |spontaneous; diminished | | | |augmentation; | | | |noncompressible | + + + + |Right posterior tibial |Patent |Compressible | + + + + |Right peroneal |Patent |Compressible | + + + + |Right gastrocnemius |Patent |Compressible | + + + + |Right soleal |Patent |Compressible | + + + + |Left common femoral |Partially |Diminished phasicity; | | |occluded |spontaneous; normal | | | |augmentation; | | | |noncompressible | + + + + |Left saphenofemoral |Patent |Compressible | |junction | | | + + + + |Left profunda femoral |Partially |Noncompressible | | |occluded | | + + + + |Left femoral |Partially |Diminished phasicity; | | |occluded |diminished spontaneity; | | | |normal augmentation; | | | |noncompressible | + + + + |Left greater saphenous |Patent |Normal phasicity; | | | |spontaneous; normal | | | |augmentation; compressible | + + + + |Left popliteal |Patent |Normal phasicity; | | | |spontaneous; normal | | | |augmentation; compressible | + + + + |Left posterior tibial |Patent |Compressible | + + + + |Left peroneal |Patent |Compressible | + + + + |Left gastrocnemius |Patent |Compressible | + + + + |Left soleal |Patent |Compressible | + + + + (Report amended ) Electronically signed by: Km Franz [id number]"
[2017-10-02 08:22] VITALS: BP 151/90
--- NOTE | 2017-10-02 08:59 | Discharge Summary ---
General - General Admission date:: 09/29/17 Discharge date: 10/02/17 HPI HPI: this elderly wf from [facility] who has change in mental status and was lower ext mottled and had failed op ivf at [facility] and was sent to ed for eval- she is poor historian and no specific c/o -his is a 77-year-old [facility] female patient sent to the emergency room by Dominick Benavides who saw patient while making rounds at the [facility], concerned with possible sepsis and mottling of bilateral feet. Patient has history of chronic dementia, no information is available about patient's chronic [place] mental status. She is currently on Keflex for a UTI. MD Complaint: generalized weakness Hospital Course Hospital Course: venous doppler: IMPRESSIONS Deep vein thrombosis involving the right common femoral vein, right femoral vein, right popliteal vein, right saphenofemoral junction, right profunda femoral, left common femoral vein, left femoral vein, Left saphenofemoral junction, and Left profunda femoral Complete lower extremity venous duplex evaluation. Sodium has slowly decreased. Will start Coumadin 2.5 mg and recheck PT and INR in 3 days. We will hold Lovenox at this time due to low platelet count and increased risk of bleeding. Will need to contact family to discuss possible hospice care. Today we will discharge back to [facility] encourage fluid intake. Objective Vital signs: Temp Pulse Resp BP Pulse Ox 98.1 F 67 16 151/90 97 10/02/17 08:00 10/02/17 08:00 10/02/17 08:00 10/02/17 08:00 10/02/17 08:00 no acute distress - *Routine HEENT Exam Head: Present: normocephalic Eye: Present: PERRL ENT: Present: mucous membranes moist - *Routine Neck Exam Present: full ROM - *Routine Respiratory Exam Present: CTA bilaterally - *Routine Cardiovascular Exam Present: RRR - *Routine Abdominal Exam Present: soft, normoactive bowel sounds - *Routine Extremities Exam Present: edema, Genevieve's sign Comments: redness to evaristo ext with edema - *Routine Skin Exam Present: intact, warm - *Routine Neurological Exam Present: alert, oriented X3 - Routine Psychiatric Exam Present: normal affect Results Labs on day of discharge: Labs from last 24 hours 10/01/17 10:18 Sodium 153 H* Potassium 3.6 Chloride 122 H Carbon Dioxide 28 Anion Gap 6.6 BUN 20 H Creatinine 0.82 Estimated Creat Clear 31 Estimated GFR 68 Est GFR ( Amer) 82 Glucose 162 H D Calcium 8.1 L Preliminary micro results at discharge 09/29/17 11:05 Urine Culture - Preliminary Urine,Catheterized 09/29/17 11:20 Blood Culture - Preliminary Blood NO GROWTH AFTER 48 HOURS - Additional Comments Rounded with Dr. Mendenhall all orders per Abdirashid DS: Diagnosis - Discharge Diagnosis (1) Hypernatremia Status: Acute (2) UTI (urinary tract infection) Status: Acute (3) DVT of axillary vein, acute bilateral Status: Acute Discharge Plan - Patient Discharge Instructions ACTIVITY: Continue current activity DIET: continue same diet Patient Instructions: Deep Vein Thrombosis, DI for Deep Vein Thrombosis - Follow up Plan Follow up with: Dominick Benavides APRN [Advanced Practice Nurse] - 1 week Disposition: er [facility] Home Medications: Home Medications Medication Instructions Recorded Confirmed Type Acetaminophen 500 mg PO Q4HP PRN 04/22/17 09/29/17 History Alendronate Sodium 70 mg PO WEEKLY 04/22/17 09/30/17 History Bisacodyl [Bisacodyl 10mg Supp] 10 mg RC DAILYP PRN 04/22/17 09/29/17 History Calcium Carbonate/Vitamin D2 1 each PO BID 04/22/17 09/29/17 History [Oyster Shell Calcium-Vit D Tab] Ipratropium/Albuterol Sulfate 3 ml IH Q6HP PRN 04/22/17 09/29/17 History [Duoneb 3mL neb] Lactulose [Lactulose 10gm/15ml 20 gm PO DAILY PRN 04/22/17 09/30/17 History Oral Soln] Levothyroxine Sodium 50 mcg PO DAILY 04/22/17 09/29/17 History [Levothyroxine 50mcg (0.05mg) Tab] Loperamide HCl [Loperamide] 2 mg PO Q3HP PRN 04/22/17 09/29/17 History Meloxicam 7.5 mg PO BID 04/22/17 09/29/17 History Mirtazapine 45 mg PO HS 04/22/17 09/29/17 History OLANZapine [Olanzapine] 2.5 mg PO HS 04/22/17 09/29/17 History Potassium Chloride [Klor-Con 10mEq 10 meq PO DAILY 04/22/17 09/29/17 History tab] Ropinirole HCl 1 mg PO BID 04/22/17 09/29/17 History Sennosides [Senna] 17.2 mg PO TID 04/22/17 09/30/17 History Simvastatin 10 mg PO HS 04/22/17 09/29/17 History cephALEXin [Keflex 500mg Cap] 500 mg PO BID 09/29/17 09/29/17 History Donepezil HCl [Aricept] 5 mg PO HS 09/30/17 09/30/17 History Polyethylene Glycol 3350 [Miralax 17 gm PO DAILY 09/30/17 09/30/17 History 17gm Packet] Tramadol HCl [Ultram] 50 mg PO Q12H 09/30/17 09/30/17 History Prescriptions/Medication Reconciliation: New Warfarin Sodium [Coumadin 2.5mg tablet] 2.5 mg PO DAILY 3 Days #3 tab Continue Potassium Chloride [Klor-Con 10mEq tab] 10 meq PO DAILY Simvastatin 10 mg PO HS Sennosides [Senna] 17.2 mg PO TID Ropinirole HCl 1 mg PO BID OLANZapine [Olanzapine] 2.5 mg PO HS Mirtazapine 45 mg PO HS Loperamide HCl [Loperamide] 2 mg PO Q3HP PRN PRN Reason: Diarrhea Lactulose [Lactulose 10gm/15ml Oral Soln] 20 gm PO DAILY PRN PRN Reason: Constipation Ipratropium/Albuterol Sulfate [Duoneb 3mL neb] 3 ml IH Q6HP PRN PRN Reason: Congestion Calcium Carbonate/Vitamin D2 [Oyster Shell Calcium-Vit D Tab] 1 each PO BID Acetaminophen 500 mg PO Q4HP PRN PRN Reason: As Needed For Fever Or Pain Polyethylene Glycol 3350 [Miralax 17gm Packet] 17 gm PO DAILY Tramadol HCl [Ultram] 50 mg PO Q12H Levothyroxine Sodium [Levothyroxine 50mcg (0.05mg) Tab] 50 mcg PO DAILY Bisacodyl [Bisacodyl 10mg Supp] 10 mg RC DAILYP PRN PRN Reason: Constipation Alendronate Sodium 70 mg PO WEEKLY Donepezil HCl [Aricept] 5 mg PO HS Discontinued Meloxicam 7.5 mg PO BID cephALEXin [Keflex 500mg Cap] 500 mg PO BID
[2017-10-02 09:36] LABS: Albumin Level 2.3 gm/dL (3.4-5.0); Albumin/Globulin Ratio 0.8 (1.1-1.8); Anion Gap 9.8 mEq/L (5-15); Bilirubin,Total 0.2 mg/dL (0.2-1.0); Calcium 7.9 mg/dL (8.5-10.1); Globulin 2.8 gm/dl (1.3-3.2); Potassium 3.8 mmoL/L (3.5-5.1); Total Protein,Serum 5.1 gm/dL (6.4-8.2)
[2017-10-02 09:42] LABS: Basophils % 0.3 % (0.1-2.0); Eosinophils # 0.1 K/mm3 (0.0-0.4); Eosinophils % 1.8 % (0.1-12.0); Hemoglobin 12.2 g/dL (12.2-16.2); Lymphocytes # 2.2 K/mm3 (0.7-4.5); Lymphocytes % 42.5 K/mm3 (10-50); Mean Corpuscular HGB Conc 30.5 g/dL (31.8-35.4); Mean Corpuscular Hemoglobin 29.5 pg (27.0-31.2); Mean Corpuscular Volume 96.9 fl (81-99); Mean Platelet Volume 12.5 fl (7.4-10.4); Monocytes # 0.2 K/mm3 (0.1-1.0); Monocytes % 3.6 % (1.7-9.3); Neutrophils # 2.7 K/mm3 (1.8-7.8); Neutrophils % 51.7 % (37.0-80.0); Platelet Count 75 K/mm3 (142-424); Red Blood Count 4.13 M/mm3 (4.20-5.40); Red Cell Distribution Width 13.7 % (11.5-17.5); White Blood Count 5.1 K/mm3 (4.8-10.8)
== END 2017-10-02 15:39 ==
LOC: ER 10:25 → 2ND 12:54
PROVIDERS: ADMIT Emergency Medicine; ATTEND Emergency Medicine
CPT/HCPCS: 36415; 71010; 71045; 80048; 80053; 81001; 83605; 84436; 84443; 85025; 85049; 87040; 87077; 87086; 87088; 87186; 93005; 93970; 96365; 96375; 99282; J1956

== ENCOUNTER 2018-01-12 14:09 | Inpatient (IN) ==
--- NOTE | 2018-01-12 16:00 | Pharmacy Consult Notes ---
[facility] Pharmacy VTE Monitoring - Patient Demographics Admission date: 01/12/18 Report Date: 01/12/18 Time: 15:59 Allergies/Adverse Reactions: Patient Allergies erythromycin base [From ERYTHROCIN] Allergy (Unknown, Verified 11/24/17 11:46) Height: 1.55 m Weight: 45 kg - VTE Risk VTE Risk Level: High Risk - Prophylaxis VTE Prophylaxis Ordered?: Yes Pharmacologic Type: Heparin (PATIENT INR 2.05 WITH WARFARIN, STARTED ON HEPARIN DRIP FOR DVT)
--- NOTE | 2018-01-12 16:01 | Pharmacy Consult Notes ---
[facility] Pharmacy Heparin Dosing - Demographic Data Admission date:: 01/12/18 Date: 01/12/18 Time: 16:00 Allergies/Adverse Reactions: Allergies Allergy/AdvReac Type Severity Reaction Status Date / Time erythromycin base Allergy Unknown Verified 11/24/17 11:46 [From ERYTHROCIN] Height: 1.55 m Weight: 45 kg - Indication Medication therapy:: Heparin Patient Problems: Current Active Problems Dvt femoral (deep venous thrombosis) (Acute) Low body mass index (BMI) (Acute) CVA?: No Bleeding problem?: No Kidney disease?: No CT?: No Desired PTT range:: 50-70 seconds - Monitoring Dose Monitor 1 Date: 01/12/18 Time: 16:00 PTT Result:: 32.4 Infusion Rate:: 800 UNITS/HR (16 ML/HR) 3600 UNIT BOLUS Dose Monitor 2 Date: 01/12/18 Time: 22:00 PTT Result:: 116.8 Infusion Rate:: STOP FOR 1 HOUR, THEN DECREASE TO 13 ML/HR Dose Monitor 3 Date: 01/13/18 Time: 06:55 PTT Result:: 76.9 Infusion Rate:: DECREASE TO 12.5 ML/HR Dose Monitor 4 Date: 01/13/18 Time: 14:30 PTT Result:: 47.0 Infusion Rate:: INCREASE TO 13 ML/HR Dose Monitor 5 Date: 01/13/18 Time: 22:00 PTT Result:: 53.4 Infusion Rate:: 13 ML/HR Dose Monitor 6 Date: 01/14/18 Time: 06:00 PTT Result:: 51.6 Infusion Rate:: 13 ML/HR - Core Measures Is INR > or = 2 at discharge?: No Most Recent Labs:: 2.05 If INR was < than 2.0 why was therapy stopped?: NOT DISCHARGE YET BUT WARFARIN AND LOVENOX STARTED Were Heparin and Warfarin started on the same day?: Yes
--- NOTE | 2018-01-12 17:31 | History & Physical Report ---
*Admission Date: 01/12/18 *Chief complaint: dvt *History of present illness: 77-year-old female seen at [facility] today with assessment noted bilateral lower leg edema with the left leg being red/purple with week pulse. 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 Patient admitted for heparin drip and consult cardiology. Patient admitted for DVT with failed anticoagulant therapy. [facility] History I have reviewed the patient's past medical history: Yes Medical History: Reports:: Chronic Obstructive Pulmonary Disease (COPD), Deep Vein Thrombosis, Depression, Hyperlipidemia, Hypertension, Kidney Stones Denies:: Cancer, Diabetes Mellitus Type 1, Diabetes Mellitus Type 2, Internal Pacemaker, MRSA Other Medical History: Reports: Anemia, Cataracts, Thyroid Disease Other Surgeries: No: Pacemaker Amputation: No Fractures: No - *Social History Educational Level: Completed High School Smoking Status: Never smoker Alcohol Intake: never Occupational Status: retired Housing: retirement Household Members: other - Psychiatric History Expresses thoughts of harming self/others: None Suicide Plan Description: No Plan Pschychiatric History:: Reports:: Depression *Family Hx:: Unable to obtain Review of Systems - Review of Systems Review of systems:: unable to obtain Meds Home Medications Medication Instructions Recorded Confirmed Type Acetaminophen 500 mg PO Q4HP PRN 04/22/17 01/12/18 History Bisacodyl [Bisacodyl 10mg Supp] 10 mg RC DAILYP PRN 04/22/17 01/12/18 History Lactulose [Lactulose 10gm/15ml 20 gm PO DAILY PRN 04/22/17 01/12/18 History Oral Soln] Levothyroxine Sodium 50 mcg PO DAILY 04/22/17 01/12/18 History [Levothyroxine 50mcg (0.05mg) Tab] Loperamide HCl [Loperamide] 2 mg PO Q3HP PRN 04/22/17 01/12/18 History Mirtazapine 45 mg PO HS 04/22/17 01/12/18 History OLANZapine [Olanzapine] 2.5 mg PO HS 04/22/17 01/12/18 History Sennosides [Senna] 17.2 mg PO TID 04/22/17 01/12/18 History Polyethylene Glycol 3350 [Miralax 17 gm PO DAILY 09/30/17 01/12/18 History 17gm Packet] Tramadol HCl [Ultram 50mg tablet] 50 mg PO Q12H 09/30/17 01/12/18 History Warfarin Sodium [Coumadin 2.5mg 4 mg PO DAILY 01/12/18 01/12/18 History tablet] Allergies Allergy/AdvReac Type Severity Reaction Status Date / Time erythromycin base Allergy Unknown Verified 11/24/17 11:46 [From ERYTHROCIN] Exam Vital signs and Labs for Last 24 Hours: Temp Pulse Resp BP Pulse Ox 98.5 F 68 18 126/61 99 01/12/18 16:00 01/12/18 16:00 01/12/18 16:00 01/12/18 16:00 01/12/18 16:00 Laboratory Results - last 24 hr 01/12/18 15:55: APTT 32.4 I & O for Last 24 hours: Intake & Output 01/10/18 01/11/18 01/12/18 01/13/18 11:59 11:59 11:59 11:59 Weight 99 lb 3.328 oz - *Routine HEENT Exam Head: Present: normocephalic Eye: Present: PERRL ENT: Present: mucous membranes moist - *Routine Neck Exam Present: supple. Absent: lymphadenopathy - *Routine Respiratory Exam Present: CTA bilaterally - *Routine Cardiovascular Exam Present: RRR - *Routine Abdominal Exam Present: soft, normoactive bowel sounds. Absent: tenderness - *Routine Extremities Exam Present: edema. Absent: cyanosis, clubbing Comments: bilateral lower leg edema. Left worse than right, left leg with red color purple with weak pulses. - *Routine Skin Exam Present: warm. Absent: rash - *Routine Neurological Exam Present: alert, oriented X3 Assessment and Plan - Assessment and plan all Dx Assessment and Plan for all problems:: discussed with Dr. Mendenhall and Dr. Yarbrough
[2018-01-12 17:37] LABS: Basophils # 0.1 K/mm3 (0-0.2); Basophils % 0.9 % (0.1-2.0); Eosinophils # 0.2 K/mm3 (0.0-0.4); Eosinophils % 2.7 % (0.1-12.0); Hematocrit 42.3 % (37.0-47.0); Hemoglobin 13.3 g/dL (12.2-16.2); Lymphocytes # 3.1 K/mm3 (0.7-4.5); Lymphocytes % 51.8 K/mm3 (10-50); Mean Corpuscular HGB Conc 31.4 g/dL (31.8-35.4); Mean Corpuscular Hemoglobin 29.9 pg (27.0-31.2); Mean Corpuscular Volume 95.1 fl (81-99); Mean Platelet Volume 8.4 fl (7.4-10.4); Monocytes # 0.3 K/mm3 (0.1-1.0); Monocytes % 5.8 % (1.7-9.3); Neutrophils # 2.3 K/mm3 (1.8-7.8); Neutrophils % 38.9 % (37.0-80.0); Platelet Count 170 K/mm3 (142-424); Red Blood Count 4.45 M/mm3 (4.20-5.40); Red Cell Distribution Width 13.7 % (11.5-17.5)
[2018-01-12 17:45] LABS: Albumin Level 3.3 gm/dL (3.4-5.0); Albumin/Globulin Ratio 0.9 (1.1-1.8); Anion Gap 7.4 mEq/L (5-15); Bilirubin,Total 0.2 mg/dL (0.2-1.0); Calcium 8.8 mg/dL (8.5-10.1); Globulin 3.7 gm/dl (1.3-3.2); Potassium 4.4 mmoL/L (3.5-5.1)
[2018-01-12 18:45] LABS: Eosinophils % 2 % (0-3); Lymphocytes % 55 % (10-50); Monocytes % 5 % (2-9); Neutrophils % 38 % (42-76); Total Cells Counted 100
[2018-01-12 18:46] LABS: RBC Morphology Normal
--- NOTE | 2018-01-13 07:57 | Non-Invasive Vascular Report ---
"Venous Exam Indications: 729.5 Pain in limb. IMPRESSIONS 1. Deep vein thrombosis involving the right common femoral vein, right femoral vein, left common femoral vein, and left femoral vein 2. Unable to scan bilateral legs due to pt contracted and unable to straighten legs. Pt unable to cooperate for exam. Limited exam. Complete lower extremity venous duplex evaluation. Doppler flow study including spectral analysis, color and oliveira scale imaging. Location: Bedside. Patient status: Inpatient. Tables: Venous flow and imaging: + + + + |Location |Overall |Flow properties | + + + + |Right common femoral |Partially occluded|Diminished phasicity; | | | |diminished spontaneity; | | | |diminished augmentation; | | | |partially compressible | + + + + |Right saphenofemoral |Partially occluded| | |junction | | | + + + + |Right profunda femoral |Not visualized | | + + + + |Right femoral |Partially occluded|Diminished phasicity; | | | |diminished spontaneity; | | | |diminished augmentation; | | | |partially compressible; | | | |no reflux | + + + + |Right greater saphenous |Patent |Normal phasicity; | | | |spontaneous; normal | | | |augmentation; | | | |compressible | + + + + |Right popliteal |Not visualized | | + + + + |Right posterior tibial |Not visualized | | + + + + |Right peroneal |Not visualized | | + + + + |Right gastrocnemius |Not visualized | | + + + + |Right soleal |Not visualized | | + + + + |Left common femoral |Partially occluded|Diminished phasicity; not| | | |spontaneous; diminished | | | |augmentation; partially | | | |compressible | + + + + |Left saphenofemoral |Partially occluded| | |junction | | | + + + + |Left profunda femoral |Not visualized | | + + + + |Left femoral |Partially occluded|Diminished phasicity; not| | | |spontaneous; diminished | | | |augmentation; partially | | | |compressible | + + + + |Left greater saphenous |Patent |Normal phasicity; | | | |spontaneous; normal | | | |augmentation; | | | |compressible | + + + + |Left popliteal |Not visualized | | + + + + |Left posterior tibial |Not visualized | | + + + + |Left peroneal |Not visualized | | + + + + |Left gastrocnemius |Not visualized | | + + + + |Left soleal |Not visualized | | + + + + (Report amended ) Electronically signed by: Carmine Bhatia [id number]"
[2018-01-13 08:10] LABS: Chol/HDL Ratio 3.8 (1-3.5)
--- NOTE | 2018-01-13 14:03 | Consult Report ---
History of Present Illness Consult date: 01/13/18 Requesting physician: Bryce Mendenhall Chief complaint: DVT Additional Medical History:: 1. 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 Persistent despite anticoagulation therapy with Coumadin, 12/2017 2. Dementia 3. Hypertension 4. Hyperlipidemia 5. History of anemia 6. Non-ambulatory with flexion contractures History of present illness: 77-year-old female seen at [facility] today with assessment noted bilateral lower leg edema with the left leg being red/purple with week pulse. 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 Patient admitted for heparin drip and consult cardiology. Patient admitted for DVT with failed anticoagulant therapy [facility] History Medical History: Reports:: Chronic Obstructive Pulmonary Disease (COPD), Deep Vein Thrombosis, Depression, Hyperlipidemia, Hypertension, Kidney Stones Denies:: Cancer, Diabetes Mellitus Type 1, Diabetes Mellitus Type 2, Internal Pacemaker, MRSA Other Medical History: Reports: Anemia, Cataracts, Thyroid Disease Other Surgeries: No: Pacemaker Amputation: No Fractures: No - *Social History Educational Level: Completed High School Smoking Status: Never smoker Alcohol Intake: never Occupational Status: retired Housing: prison Household Members: other - Psychiatric History Expresses thoughts of harming self/others: None Suicide Plan Description: No Plan Pschychiatric History:: Reports:: Depression *Family Hx:: Unable to obtain Meds Home Medications Medication Instructions Recorded Confirmed Type Acetaminophen 500 mg PO Q4HP PRN 04/22/17 01/12/18 History Bisacodyl [Bisacodyl 10mg Supp] 10 mg RC DAILYP PRN 04/22/17 01/12/18 History Lactulose [Lactulose 10gm/15ml 20 gm PO DAILY PRN 04/22/17 01/12/18 History Oral Soln] Levothyroxine Sodium 50 mcg PO DAILY 04/22/17 01/12/18 History [Levothyroxine 50mcg (0.05mg) Tab] Loperamide HCl [Loperamide] 2 mg PO Q3HP PRN 04/22/17 01/12/18 History OLANZapine [Olanzapine] 2.5 mg PO HS 04/22/17 01/12/18 History Sennosides [Senna] 17.2 mg PO TID 04/22/17 01/12/18 History Polyethylene Glycol 3350 [Miralax 17 gm PO DAILY 09/30/17 01/12/18 History 17gm Packet] Warfarin Sodium [Coumadin 2.5mg 4 mg PO DAILY 01/12/18 01/12/18 History tablet] Mirtazapine 45 mg PO HS 01/13/18 01/13/18 History Tramadol HCl [Ultram 50mg 50 mg PO Q12H PRN 01/13/18 01/13/18 History tablet] Allergies Allergy/AdvReac Type Severity Reaction Status Date / Time erythromycin base Allergy Unknown Verified 11/24/17 11:46 [From ERYTHROCIN] Review of Systems - *Cardiovascular Denies chest pain, Denies shortness of breath - *Respiratory Denies shortness of breath - *Gastrointestinal Denies abdominal pain - *Musculoskeletal Reports muscle weakness, Reports stiffness - *Neurologic Reports memory loss Exam Vital signs and Labs for Last 24 Hours: Temp Pulse Resp BP Pulse Ox 98.8 F 58 L 16 136/65 97 01/13/18 12:00 01/13/18 12:00 01/13/18 12:00 01/13/18 12:00 01/13/18 12:00 Laboratory Results - last 24 hr 01/12/18 15:55: APTT 32.4 01/12/18 16:40: WBC 6.0, RBC 4.45, Hgb 13.3, Hct 42.3, MCV 95.1, MCH 29.9, MCHC 31.4 L, RDW 13.7, Plt Count 170, MPV 8.4, Neut % (Auto) 38.9, Lymph % (Auto) 51.8 H, [place] % (Auto) 5.8, Eos % (Auto) 2.7, Baso % (Auto) 0.9, Neut # (Auto) 2.3, Lymph # (Auto) 3.1, [place] # (Auto) 0.3, Eos # (Auto) 0.2, Baso # (Auto) 0.1, Total Counted 100, Neutrophils % (Manual) 38 L, Lymphocytes % (Manual) 55 H, Monocytes % (Manual) 5, Eosinophils % (Manual) 2, Platelet Estimate Normal, RBC Morphology Normal 01/12/18 16:40: Sodium 144, Potassium 4.4, Chloride 109 H, Carbon Dioxide 32, Anion Gap 7.4, BUN 14, Creatinine 0.80, Estimated Creat Clear 33, Estimated GFR 70, Est GFR ( Amer) 84, Glucose 93, Calcium 8.8, Total Bilirubin 0.2, AST 25, ALT 31, Alkaline Phosphatase 78, Total Protein 7.0 D, Albumin 3.3 L, Globulin 3.7 H, Albumin/Globulin Ratio 0.9 L 01/12/18 22:00: APTT 116.8 H* D 01/13/18 06:55: Triglycerides 47, Cholesterol 204 H, LDL Cholesterol 142 H, VLDL Cholesterol 9, HDL Cholesterol 53, Cholesterol/HDL Ratio 3.8 H 01/13/18 06:55: APTT 76.9 H* D I & O for Last 24 hours: Intake & Output 01/11/18 01/12/18 01/13/18 01/14/18 11:59 11:59 11:59 11:59 Intake Total 182 / 182 Balance 182 / 182 Weight 99 lb 3.328 oz 99 lb 3.328 oz - *Routine Neck Exam Present: supple. Absent: JVD, carotid bruit - *Routine Respiratory Exam Present: decreased breath sounds, CTA bilaterally, diminished air movement. Absent: accessory muscle use, rales, rhonchi, wheezes - *Routine Cardiovascular Exam Present: RRR. Absent: murmur, gallop, rubs - *Routine Abdominal Exam Present: soft. Absent: tenderness, distended, guarding - *Routine Extremities Exam Present: edema. Absent: calf tenderness Comments: Flexion contractures of the lower extremities - *Routine Neurological Exam Present: alert, moving all extremities. Absent: oriented X3 Assessment and Plan (1) Dvt femoral (deep venous thrombosis) Current visit: Yes Status: Acute Category: Medical Code(s): I82.419 - Acute embolism and thrombosis of unspecified femoral vein (2) Anemia, unspecified Current visit: No Status: Chronic Qualifiers: Anemia type: other cause Other causes of anemia: other cause, not classified Qualified Code(s): D64.89 - Other specified anemias Category: Medical Code(s): D64.9 - Anemia, unspecified (3) Chronic obstructive pulmonary disease, unspecified Current visit: No Status: Chronic Qualifiers: COPD type: unspecified COPD Qualified Code(s): J44.9 - Chronic obstructive pulmonary disease, unspecified Category: Medical Code(s): J44.9 - Chronic obstructive pulmonary disease, unspecified (4) Dementia without behavioral disturbance Current visit: No Status: Chronic Qualifiers: Dementia type: associated with other underlying disease Qualified Code(s): F02.80 - Dementia in other diseases classified elsewhere without behavioral disturbance Category: Medical Code(s): F03.90 - Unspecified dementia without behavioral disturbance (5) Muscle weakness (generalized) Current visit: No Status: Chronic Category: Medical Code(s): M62.81 - Muscle weakness (generalized) - Assessment and plan all Dx Assessment and Plan for all problems:: 1. Proceed with IVC filter placement tomorrow using IJ approach. 2. Continue IV heparin.
--- NOTE | 2018-01-13 15:25 | Pharmacy Consult Notes ---
[facility] Pharmacy Heparin Dosing - Demographic Data Admission date:: 01/12/18 Date: 01/13/18 Time: 15:22 Allergies/Adverse Reactions: Allergies Allergy/AdvReac Type Severity Reaction Status Date / Time erythromycin base Allergy Unknown Verified 11/24/17 11:46 [From ERYTHROCIN] Height: 1.55 m Weight: 45 kg - Indication Medication therapy:: Heparin Patient Problems: Current Active Problems Dvt femoral (deep venous thrombosis) (Acute) Low body mass index (BMI) (Acute) CVA?: No Bleeding problem?: No Kidney disease?: No [place]?: No Desired PTT range:: 50-70 seconds - Labs Anticoagulation Lab Results:: 01/12/18 16:40 Hgb 13.3 Hct 42.3 Plt Count 170 - Monitoring Dose Monitor 1 Date: 01/12/18 Time: 16:00 PTT Result:: 32.4 Infusion Rate:: 16 MLS/HR Comment:: BASELINE PTT 3600 UNIT BOLUS 800 UNITS/HR, 16 ML/HR Dose Monitor 2 Date: 01/12/18 Time: 22:00 PTT Result:: 116.8 Infusion Rate:: 13 MLS/HR Comment:: STOPPED FOR 1 HOUR, THEN RESTARTED AT 13 MLS/HR Dose Monitor 3 Date: 01/13/18 Time: 06:55 PTT Result:: 76.9 Infusion Rate:: 12.5 MLS/HR Dose Monitor 4 Date: 01/13/18 Time: 14:30 PTT Result:: 47.0 Infusion Rate:: 13 ML/HR Dose Monitor 5 Date: 01/13/18 Time: 22:00 PTT Result:: 53.4 Infusion Rate:: 13 ML/HR Dose Monitor 6 Date: 01/14/18 Time: 06:00 PTT Result:: 51.6 Infusion Rate:: 13 ML/HR Comment:: KAQ=118 - Core Measures Is INR > or = 2 at discharge?: No Most Recent Labs:: Laboratory Results - last 24 hr 01/12/18 15:55: APTT 32.4 01/12/18 16:40: WBC 6.0, RBC 4.45, Hgb 13.3, Hct 42.3, MCV 95.1, MCH 29.9, MCHC 31.4 L, RDW 13.7, Plt Count 170, MPV 8.4, Neut % (Auto) 38.9, Lymph % (Auto) 51.8 H, [place] % (Auto) 5.8, Eos % (Auto) 2.7, Baso % (Auto) 0.9, Neut # (Auto) 2.3, Lymph # (Auto) 3.1, [place] # (Auto) 0.3, Eos # (Auto) 0.2, Baso # (Auto) 0.1, Total Counted 100, Neutrophils % (Manual) 38 L, Lymphocytes % (Manual) 55 H, Monocytes % (Manual) 5, Eosinophils % (Manual) 2, Platelet Estimate Normal, RBC Morphology Normal 01/12/18 16:40: Sodium 144, Potassium 4.4, Chloride 109 H, Carbon Dioxide 32, Anion Gap 7.4, BUN 14, Creatinine 0.80, Estimated Creat Clear 33, Estimated GFR 70, Est GFR ( Amer) 84, Glucose 93, Calcium 8.8, Total Bilirubin 0.2, AST 25, ALT 31, Alkaline Phosphatase 78, Total Protein 7.0 D, Albumin 3.3 L, Globulin 3.7 H, Albumin/Globulin Ratio 0.9 L 01/12/18 22:00: APTT 116.8 H* D 01/13/18 06:55: Triglycerides 47, Cholesterol 204 H, LDL Cholesterol 142 H, VLDL Cholesterol 9, HDL Cholesterol 53, Cholesterol/HDL Ratio 3.8 H 01/13/18 06:55: APTT 76.9 H* D 01/13/18 14:33: APTT 47.0 H D If INR was < than 2.0 why was therapy stopped?: DC'D HEPARIN DRIP AND CHANGED TO [facility]AP[facility] WITH LOVENOX AND WARFARIN Were Heparin and Warfarin started on the same day?: No If not, why?: LOVENOX AND WARFARIN STARTED ON SAME DAY
--- NOTE | 2018-01-13 22:30 | Progress Note ---
Internal Medicine - PN: Subj *Date: 01/13/18 *Time: 08:00 Interval history: pt doing ok on heparin Exam Vital signs and Labs for Last 24 Hours: Temp Pulse Resp BP Pulse Ox 98.9 F 83 16 133/76 96 01/13/18 20:00 01/13/18 20:00 01/13/18 20:00 01/13/18 20:00 01/13/18 20:00 Laboratory Results - last 24 hr 01/12/18 22:00: APTT 116.8 H* D 01/13/18 06:55: Triglycerides 47, Cholesterol 204 H, LDL Cholesterol 142 H, VLDL Cholesterol 9, HDL Cholesterol 53, Cholesterol/HDL Ratio 3.8 H 01/13/18 06:55: APTT 76.9 H* D 01/13/18 14:33: APTT 47.0 H D 01/13/18 22:00: APTT 53.4 H* D I & O for Last 24 hours: Intake & Output 01/11/18 01/12/18 01/13/18 01/14/18 11:59 11:59 11:59 11:59 Intake Total 182 / 182 121 / 121 Balance 182 / 182 121 / 121 Weight 99 lb 3.328 oz 99 lb 3.328 oz - Constitutional no acute distress, thin - *Routine HEENT Exam Head: Present: normocephalic Eye: Present: EOMI, PERRL ENT: Present: mucous membranes dry - *Routine Neck Exam Absent: JVD - *Routine Respiratory Exam Present: decreased breath sounds - *Routine Cardiovascular Exam Present: RRR, murmur - *Routine Abdominal Exam Present: soft - *Routine Extremities Exam Present: edema, extremity cold to touch - *Routine Skin Exam Present: intact - *Routine Neurological Exam Present: alert, CN II-XII intact - Routine Psychiatric Exam Present: unable to assess Assessment and Plan (1) Dvt femoral (deep venous thrombosis) Current visit: Yes Status: Acute Category: Medical Code(s): I82.419 - Acute embolism and thrombosis of unspecified femoral vein (2) Anemia, unspecified Current visit: No Status: Chronic Qualifiers: Anemia type: other cause Other causes of anemia: other cause, not classified Qualified Code(s): D64.89 - Other specified anemias Category: Medical Code(s): D64.9 - Anemia, unspecified (3) Chronic obstructive pulmonary disease, unspecified Current visit: No Status: Chronic Qualifiers: COPD type: unspecified COPD Qualified Code(s): J44.9 - Chronic obstructive pulmonary disease, unspecified Category: Medical Code(s): J44.9 - Chronic obstructive pulmonary disease, unspecified (4) Dementia without behavioral disturbance Current visit: No Status: Chronic Qualifiers: Dementia type: associated with other underlying disease Qualified Code(s): F02.80 - Dementia in other diseases classified elsewhere without behavioral disturbance Category: Medical Code(s): F03.90 - Unspecified dementia without behavioral disturbance (5) Muscle weakness (generalized) Current visit: No Status: Chronic Category: Medical Code(s): M62.81 - Muscle weakness (generalized) (6) Low body mass index (BMI) Current visit: Yes Status: Acute Category: Medical
[2018-01-14 07:05] LABS: Basophils % 0.7 % (0.1-2.0); Eosinophils # 0.1 K/mm3 (0.0-0.4); Hematocrit 37.7 % (37.0-47.0); Lymphocytes # 2.5 K/mm3 (0.7-4.5); Lymphocytes % 42.3 K/mm3 (10-50); Mean Corpuscular HGB Conc 31.9 g/dL (31.8-35.4); Mean Corpuscular Hemoglobin 29.9 pg (27.0-31.2); Mean Corpuscular Volume 93.6 fl (81-99); Mean Platelet Volume 8.4 fl (7.4-10.4); Monocytes # 0.3 K/mm3 (0.1-1.0); Monocytes % 5.8 % (1.7-9.3); Neutrophils # 2.9 K/mm3 (1.8-7.8); Neutrophils % 49.3 % (37.0-80.0); Platelet Count 131 K/mm3 (142-424); Red Blood Count 4.02 M/mm3 (4.20-5.40); Red Cell Distribution Width 13.6 % (11.5-17.5); White Blood Count 5.9 K/mm3 (4.8-10.8)
[2018-01-14 07:26] LABS: Anion Gap 11.7 mEq/L (5-15); Calcium 8.8 mg/dL (8.5-10.1); Potassium 3.7 mmoL/L (3.5-5.1)
--- NOTE | 2018-01-14 08:37 | Progress Note ---
Internal Medicine - PN: Subj *Date: 01/14/18 *Time: 08:36 Exam Vital signs and Labs for Last 24 Hours: Temp Pulse Resp BP Pulse Ox 99.2 F 62 16 111/50 L 98 01/14/18 04:00 01/14/18 04:00 01/14/18 04:00 01/14/18 04:00 01/14/18 04:00 Laboratory Results - last 24 hr 01/13/18 14:33: APTT 47.0 H D 01/13/18 22:00: APTT 53.4 H* D 01/14/18 06:26: APTT 51.6 H* 01/14/18 06:26: WBC 5.9, RBC 4.02 L, Hgb 12.0 L, Hct 37.7, MCV 93.6, MCH 29.9, MCHC 31.9, RDW 13.6, Plt Count 131 L, MPV 8.4, Neut % (Auto) 49.3, Lymph % (Auto) 42.3, [place] % (Auto) 5.8, Eos % (Auto) 2.0, Baso % (Auto) 0.7, Neut # (Auto) 2.9, Lymph # (Auto) 2.5, [place] # (Auto) 0.3, Eos # (Auto) 0.1, Baso # (Auto) 0.0 01/14/18 06:26: Sodium 146 H, Potassium 3.7, Chloride 111 H, Carbon Dioxide 27, Anion Gap 11.7, BUN 17, Creatinine 0.75, Estimated Creat Clear 38, Estimated GFR 75, Est GFR ( Amer) 91, Glucose 93, Calcium 8.8 I & O for Last 24 hours: Intake & Output 01/11/18 01/12/18 01/13/18 01/14/18 11:59 11:59 11:59 11:59 Intake Total 182 / 182 275 / 275 Balance 182 / 182 275 / 275 Weight 99 lb 3.328 oz 111 lb 8 oz - *Routine HEENT Exam Head: Present: normocephalic Eye: Present: PERRL ENT: Present: mucous membranes moist - *Routine Neck Exam Present: supple. Absent: lymphadenopathy - *Routine Respiratory Exam Present: CTA bilaterally - *Routine Cardiovascular Exam Present: RRR - *Routine Abdominal Exam Present: soft, normoactive bowel sounds. Absent: tenderness - *Routine Extremities Exam Present: edema. Absent: cyanosis, clubbing - *Routine Skin Exam Present: warm. Absent: rash - *Routine Neurological Exam Present: alert Assessment and Plan (1) Dvt femoral (deep venous thrombosis) Current visit: Yes Status: Acute Category: Medical Code(s): I82.419 - Acute embolism and thrombosis of unspecified femoral vein (2) Anemia, unspecified Current visit: No Status: Chronic Qualifiers: Anemia type: other cause Other causes of anemia: other cause, not classified Qualified Code(s): D64.89 - Other specified anemias Category: Medical Code(s): D64.9 - Anemia, unspecified (3) Chronic obstructive pulmonary disease, unspecified Current visit: No Status: Chronic Qualifiers: COPD type: unspecified COPD Qualified Code(s): J44.9 - Chronic obstructive pulmonary disease, unspecified Category: Medical Code(s): J44.9 - Chronic obstructive pulmonary disease, unspecified (4) Dementia without behavioral disturbance Current visit: No Status: Chronic Qualifiers: Dementia type: associated with other underlying disease Qualified Code(s): F02.80 - Dementia in other diseases classified elsewhere without behavioral disturbance Category: Medical Code(s): F03.90 - Unspecified dementia without behavioral disturbance (5) Muscle weakness (generalized) Current visit: No Status: Chronic Category: Medical Code(s): M62.81 - Muscle weakness (generalized) (6) Low body mass index (BMI) Current visit: Yes Status: Acute Category: Medical - Assessment and plan all Dx Assessment and Plan for all problems:: Rounded with Dr. Mendenhall all orders per Abdirashid Filter placement today possible discharge to [facility] tomorrow
--- NOTE | 2018-01-14 10:07 | Progress Note ---
Subjective Date: 01/14/18 Time: 10:05 Principal diagnosis: Bilateral lower extremity DVT Interval history: 77-year-old white female sitting up in bed eating breakfast with assistance in no acute distress. She denies any chest pain. Patient is pleasantly confused. Exam Vital signs and Labs for Last 24 Hours: Temp Pulse Resp BP Pulse Ox 98.5 F 61 15 136/72 96 01/14/18 08:00 01/14/18 08:00 01/14/18 08:00 01/14/18 08:00 01/14/18 08:00 Laboratory Results - last 24 hr 01/13/18 14:33: APTT 47.0 H D 01/13/18 22:00: APTT 53.4 H* D 01/14/18 06:26: APTT 51.6 H* 01/14/18 06:26: WBC 5.9, RBC 4.02 L, Hgb 12.0 L, Hct 37.7, MCV 93.6, MCH 29.9, MCHC 31.9, RDW 13.6, Plt Count 131 L, MPV 8.4, Neut % (Auto) 49.3, Lymph % (Auto) 42.3, [place] % (Auto) 5.8, Eos % (Auto) 2.0, Baso % (Auto) 0.7, Neut # (Auto) 2.9, Lymph # (Auto) 2.5, [place] # (Auto) 0.3, Eos # (Auto) 0.1, Baso # (Auto) 0.0 01/14/18 06:26: Sodium 146 H, Potassium 3.7, Chloride 111 H, Carbon Dioxide 27, Anion Gap 11.7, BUN 17, Creatinine 0.75, Estimated Creat Clear 38, Estimated GFR 75, Est GFR ( Amer) 91, Glucose 93, Calcium 8.8 I & O for Last 24 hours: Intake & Output 01/11/18 01/12/18 01/13/18 01/14/18 11:59 11:59 11:59 11:59 Intake Total 182 / 182 515 / 515 Balance 182 / 182 515 / 515 Weight 99 lb 3.328 oz 99 lb 3.328 oz - *Routine Respiratory Exam Present: CTA bilaterally. Absent: accessory muscle use, rales, rhonchi, wheezes - *Routine Cardiovascular Exam Present: RRR. Absent: murmur, gallop, rubs Progress Note: A&P (1) Dvt femoral (deep venous thrombosis) Status: Acute Current Visit: Yes (2) Anemia, unspecified Status: Chronic Current Visit: No (3) Chronic obstructive pulmonary disease, unspecified Status: Chronic Current Visit: No (4) Dementia without behavioral disturbance Status: Chronic Current Visit: No (5) Muscle weakness (generalized) Status: Chronic Current Visit: No (6) Low body mass index (BMI) Status: Acute Current Visit: Yes Assessment and Plan for All Diagnoses:: Proceed with placement of IVC filter today. Resume heparin or Lovenox and Coumadin thereafter.
--- NOTE | 2018-01-15 08:03 | Discharge Summary ---
General - General Admission date:: 01/12/18 Discharge date: 01/15/18 HPI HPI: 77-year-old female seen at [facility] today with assessment noted bilateral lower leg edema with the left leg being red/purple with week pulse. 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 Patient admitted for heparin drip and consult cardiology. Patient admitted for DVT with failed anticoagulant therapy. Hospital Course Hospital Course: Filter placement:IMPRESSION: 1. Successful placement of inferior vena caval interruption filter 2. Successful placement of right internal jugular vein central access sheath left in place for clinical usage while in the acute inpatient setting venous doppler:IMPRESSIONS 1. Deep vein thrombosis involving the right common femoral vein, right femoral vein, left common femoral vein, and left femoral vein 2. Unable to scan bilateral legs due to pt contracted and unable to straighten legs. Pt unable to cooperate for exam. Limited exam. Complete lower extremity venous duplex evaluation. We will discharge back to [facility] today we will continue Lovenox and Coumadin. Will check INR tomorrow. When therapeutic will DC Lovenox. Objective Vital signs: Temp Pulse Resp BP Pulse Ox 97.9 F 71 16 143/65 H 92 L 01/15/18 04:00 01/15/18 04:00 01/15/18 04:00 01/15/18 04:00 01/15/18 04:00 no acute distress - *Routine HEENT Exam Head: Present: normocephalic Eye: Present: PERRL ENT: Present: mucous membranes moist - *Routine Neck Exam Present: full ROM Comments: IV access to right jugular - *Routine Respiratory Exam Present: CTA bilaterally - *Routine Cardiovascular Exam Present: RRR - *Routine Abdominal Exam Present: soft - *Routine Extremities Exam Present: full ROM - *Routine Neurological Exam Present: alert - Routine Psychiatric Exam Present: unable to assess Results Labs on day of discharge: Labs from last 24 hours 01/14/18 01/14/18 14:15 06:26 APTT 28.7 51.6 H* - Additional Comments Rounded with Dr. Mendenhall all orders per Abdirashid DS: Diagnosis - Discharge Diagnosis (1) Dvt femoral (deep venous thrombosis) Status: Acute (2) Anemia, unspecified Status: Chronic (3) Chronic obstructive pulmonary disease, unspecified Status: Chronic (4) Dementia without behavioral disturbance Status: Chronic (5) Muscle weakness (generalized) Status: Chronic (6) Low body mass index (BMI) Status: Acute Discharge Plan - Patient Discharge Instructions ACTIVITY: Continue current activity DIET: continue same diet Patient Instructions: Deep Vein Thrombosis, Surgical Site Infection, Inferior Vena Cava Filter Placement - Follow up Plan Follow up with: Dominick Benavides APRN [Advanced Practice Nurse] - Disposition: er [facility] Home Medications: Home Medications Medication Instructions Recorded Confirmed Type Acetaminophen 500 mg PO Q4HP PRN 04/22/17 01/12/18 History Bisacodyl [Bisacodyl 10mg Supp] 10 mg RC DAILYP PRN 04/22/17 01/12/18 History Lactulose [Lactulose 10gm/15ml 20 gm PO DAILY PRN 04/22/17 01/12/18 History Oral Soln] Levothyroxine Sodium 50 mcg PO DAILY 04/22/17 01/12/18 History [Levothyroxine 50mcg (0.05mg) Tab] Loperamide HCl [Loperamide] 2 mg PO Q3HP PRN 04/22/17 01/12/18 History OLANZapine [Olanzapine] 2.5 mg PO HS 04/22/17 01/12/18 History Sennosides [Senna] 17.2 mg PO TID 04/22/17 01/12/18 History Polyethylene Glycol 3350 [Miralax 17 gm PO DAILY 09/30/17 01/12/18 History 17gm Packet] Warfarin Sodium [Coumadin 2.5mg 4 mg PO DAILY 01/12/18 01/12/18 History tablet] Mirtazapine 45 mg PO HS 01/13/18 01/13/18 History Tramadol HCl [Ultram 50mg 50 mg PO Q12H PRN 01/13/18 01/13/18 History tablet] Prescriptions/Medication Reconciliation: New Enoxaparin Sodium [Lovenox 60mg/0.6mL syringe] 45 mg SQ Q12H 10 Days #60 syringe Warfarin Sodium [Coumadin 5mg tablet] 5 mg PO COUMADIN 30 Days #30 tab Tramadol HCl [Ultram 50mg tablet] 50 mg PO BIDP PRN tablet PRN Reason: Moderate Pain Continue Sennosides [Senna] 17.2 mg PO TID OLANZapine [Olanzapine] 2.5 mg PO HS Loperamide HCl [Loperamide] 2 mg PO Q3HP PRN PRN Reason: Diarrhea Lactulose [Lactulose 10gm/15ml Oral Soln] 20 gm PO DAILY PRN PRN Reason: Constipation Acetaminophen 500 mg PO Q4HP PRN PRN Reason: As Needed For Fever Or Pain Polyethylene Glycol 3350 [Miralax 17gm Packet] 17 gm PO DAILY Levothyroxine Sodium [Levothyroxine 50mcg (0.05mg) Tab] 50 mcg PO DAILY Bisacodyl [Bisacodyl 10mg Supp] 10 mg RC DAILYP PRN PRN Reason: Constipation Mirtazapine 45 mg PO HS Discontinued Tramadol HCl [Ultram 50mg tablet] 50 mg PO Q12H PRN PRN Reason: PAIN Warfarin Sodium [Coumadin 2.5mg tablet] 4 mg PO DAILY
--- NOTE | 2018-01-15 09:23 | Progress Note ---
Subjective Date: 01/15/18 Time: 09:21 Principal diagnosis: Bilateral lower extremity DVT Interval history: 77-year-old white female in bed in no acute distress. Denies any complaints of chest pain. Exam Vital signs and Labs for Last 24 Hours: Temp Pulse Resp BP Pulse Ox 97.6 F 69 18 122/58 L 95 01/15/18 08:00 01/15/18 08:00 01/15/18 08:00 01/15/18 08:00 01/15/18 08:00 Laboratory Results - last 24 hr 01/14/18 14:15: APTT 28.7 I & O for Last 24 hours: Intake & Output 01/12/18 01/13/18 01/14/18 01/15/18 11:59 11:59 11:59 11:59 Intake Total 182 / 182 515 / 515 440 / 440 Output Total Balance 182 / 182 515 / 515 439 / 439 Weight 111 lb 6 oz 111 lb 8 oz 111 lb 3.254 oz - *Routine Respiratory Exam Present: CTA bilaterally. Absent: accessory muscle use, rales, rhonchi, wheezes - *Routine Cardiovascular Exam Present: RRR. Absent: murmur, gallop, rubs - *Routine Extremities Exam Present: edema. Absent: calf tenderness Progress Note: A&P (1) Dvt femoral (deep venous thrombosis) Status: Acute Current Visit: Yes (2) Anemia, unspecified Status: Chronic Current Visit: No (3) Chronic obstructive pulmonary disease, unspecified Status: Chronic Current Visit: No (4) Dementia without behavioral disturbance Status: Chronic Current Visit: No (5) Muscle weakness (generalized) Status: Chronic Current Visit: No (6) Low body mass index (BMI) Status: Acute Current Visit: Yes Assessment and Plan for All Diagnoses:: Status post IVC filter placement. No complications. Okay for discharge from cardiology standpoint. Patient is on Lovenox and Coumadin until INR therapeutic.
--- NOTE | 2018-01-15 09:24 | Pharmacy Consult Notes ---
[facility] Pharmacy VTE Monitoring - Patient Demographics Admission date: 01/12/18 Report Date: 01/15/18 Time: 09:21 Allergies/Adverse Reactions: Patient Allergies erythromycin base [From ERYTHROCIN] Allergy (Unknown, Verified 11/24/17 11:46) Height: 1.55 m Weight: 50.441 kg Patient Problems: Current Active Problems Dvt femoral (deep venous thrombosis) (Acute) Low body mass index (BMI) (Acute) - VTE Risk Labs: VTE Related Lab Results Hgb 12.0 g/dL (12.2-16.2) L 01/14/18 06:26 Hct 37.7 % (37.0-47.0) 01/14/18 06:26 Plt Count 131 K/mm3 (142-424) L 01/14/18 06:26 APTT 28.7 seconds (23.6-34.0) 01/14/18 14:15 BUN 17 mg/dL (7-18) 01/14/18 06:26 Creatinine 0.75 mg/dL (0.55-1.02) 01/14/18 06:26 Estimated Creat Clear 38 mL/min (0-300) 01/14/18 06:26 VTE Score: 3 VTE Risk Level: Low Risk - Prophylaxis VTE Prophylaxis Ordered?: Yes (INITIALLY ON HEPARING DRIP, THEN CHANGED TO LOVENOX AND WARFARIN) Types of VTE Prophylaxis: Pharmacological Pharmacologic Type: Enoxaparin (AND WARFARIN) - VTE Diagnosis Confirmed Treatment or plan recommended: Add Enoxaparin, Add Warfarin Warfarin counseling provided if indicated?: No (NO...[facility] PATIENT) Bridge therapy started inpt?: Yes (LOVENOX AND WARFARIN)
== END 2018-01-15 16:18 ==
LOC: 2ND → OBSVTOIN 15:33
PROVIDERS: ADMIT Emergency Medicine; ATTEND Emergency Medicine

== ENCOUNTER → 2018-01-12 14:14 | Outpatient (REF) | payer MEDICARE, MEDICAID, SELFPAY ==
[2018-01-12 14:32] LABS: INR 2.05 (0.9-1.1); Prothrombin Time 20.7 seconds (9.4-11.8)
== END ==
LOC: LAB 14:14
PROVIDERS: Visit Provider Emergency Medicine
DX: Z79.01 Long term (current) use of anticoagulants (principal)
CPT/HCPCS: 85610

== ENCOUNTER → 2018-01-16 09:50 | Outpatient (REF) | payer MEDICARE, MEDICAID, SELFPAY ==
[2018-01-16 10:12] LABS: INR 1.23 (0.9-1.1); Prothrombin Time 12.6 seconds (9.4-11.8)
== END ==
LOC: LAB 09:50
PROVIDERS: Visit Provider Emergency Medicine
DX: Z51.81 Encounter for therapeutic drug level monitoring (principal); Z79.01 Long term (current) use of anticoagulants
CPT/HCPCS: 85610

== ENCOUNTER → 2018-02-12 11:00 | Outpatient (CLI) | payer OTHER, MEDICARE, MEDICAID, SELFPAY ==
[2018-02-12 11:19] LABS: INR 3.64 (0.9-1.1); Prothrombin Time 36.1 seconds (9.4-11.8)
== END ==
PROVIDERS: Visit Provider Emergency Medicine
DX: R79.1 Abnormal coagulation profile (principal)
CPT/HCPCS: 85610

== ENCOUNTER 2018-03-24 02:06 | Inpatient (IN) ==
[2018-03-24 02:47] LABS: Basophils # 0.1 K/mm3 (0-0.2); Basophils % 0.4 % (0.1-2.0); Eosinophils % 0.2 % (0.1-12.0); Hemoglobin 14.6 g/dL (12.2-16.2); Lymphocytes # 3.8 K/mm3 (0.7-4.5); Lymphocytes % 29.1 % (10-50); Mean Corpuscular HGB Conc 31.1 g/dL (31.8-35.4); Mean Corpuscular Hemoglobin 29.2 pg (27.0-31.2); Mean Corpuscular Volume 93.8 fl (81-99); Mean Platelet Volume 9.1 fl (7.4-10.4); Monocytes # 0.6 K/mm3 (0.1-1.0); Monocytes % 4.7 % (1.7-9.3); Neutrophils # 8.6 K/mm3 (1.8-7.8); Neutrophils % 65.5 % (37.0-80.0); Platelet Count 260 K/mm3 (142-424); Red Blood Count 5.01 M/mm3 (4.20-5.40); Red Cell Distribution Width 14.4 % (11.5-17.5); White Blood Count 13.2 K/mm3 (4.8-10.8)
[2018-03-24 03:30] LABS: Microscopic, Urine URINE MICROSCOPIC (MICROSCOPIC)
[2018-03-24 03:59] LABS: Appearance,Urine Turbid (Clear); Bilirubin,Urine Negative (Negative); Blood, Urine 3+ (Negative); Color,Urine Red (Yellow); Glucose,Urine (UA) Negative (Negative); Ketones,Urine 1+ (Negative); Leukocyte Esterase,Urine 2+ (Negative); PH,Urine 8.5 (5.0-8.5); Protein,Urine 3+ (Negative)
[2018-03-24 04:00] LABS: Bacteria,Urine 2+ /lpf; Mucus,Urine 1+ /lpf; RBC,Urine 50-100 #/hpf (0-3)
[2018-03-24 04:05] LABS: Albumin Level 2.8 gm/dL (3.4-5.0); Albumin/Globulin Ratio 0.8 (1.1-1.8); Bilirubin,Total 0.4 mg/dL (0.2-1.0); C-Reactive Protein 0.3 mg/L (0.0-0.9); Calcium 8.3 mg/dL (8.5-10.1); Globulin 3.5 gm/dl (1.3-3.2); Total Protein,Serum 6.3 gm/dL (6.4-8.2)
[2018-03-24 04:07] LABS: INR 15.78 (0.9-1.1)
--- NOTE | 2018-03-24 04:11 | Emergency Department Note ---
ED Disposition Clinical Impression: Elevated INR, Low body mass index (BMI), Hypernatremia, Renal insufficiency UTI (urinary tract infection) Qualifiers: Urinary tract infection type: acute cystitis Hematuria presence: with hematuria Qualified Code(s): N30.01 - Acute cystitis with hematuria Disposition: Admitted As Inpatient Condition on Discharge: Serious - Critical Care Critical Care Time: No Attestation: On 03/24/18, the high probability of a clinically significant, sudden or life threatening deterioration of the following system(s) required my full and direct attention, intervention and personal management. The time I documented below is in addition to time spent performing reported procedures but includes the fol lowing listed in this critical care notation. Medical Decision Making - Medical Records Medical records reviewed: Yes: I reviewed the patient's medical records. - Brandt Inquiry Pt receiving controlled substance: No Vital Signs: 03/24/18 02:07 03/24/18 04:19 Temperature 101.2 F H Temperature Source Rectal Pulse Rate [Right] 88 64 Respiratory Rate 20 18 Blood Pressure [Right Arm] 143/85 H 141/72 H Blood Pressure Mean [Right Arm] 104 95 Blood Pressure Source [Right Arm] Automatic Cuff Blood Pressure Position [Right Arm] Supine 02 Sat by Pulse Oximetry 95 95 Oxygen Delivery Method Room Air Room Air - Lab Data Lab results reviewed: Yes: I reviewed the patient's lab results. Lab Results 03/24/18 02:25: Urine Color Red, Urine Appearance Turbid, Urine pH 8.5, Ur S pecific [place] 1.010, Urine Protein 3+, Urine Glucose (UA) Negative, Urine Ketones 1+, Urine Blood 3+, Urine Nitrate Positive, Urine Bilirubin Negative, Urine Urobilinogen 2.0, Ur Leukocyte Esterase 2+ A, Urine RBC 50-100, Urine WBC 5-10, Urine Bacteria 2+, Urine Mucus 1+ 03/24/18 02:25: WBC 13.2 H, RBC 5.01, Hgb 14.6, Hct 47.0, MCV 93.8, MCH 29.2, MCHC 31.1 L, RDW 14.4, Plt Count 260, MPV 9.1, Neut % (Auto) 65.5, Lymph % (Auto) 29.1, [place] % (Auto) 4.7, Eos % (Auto) 0.2, Baso % (Auto) 0.4, Neut # (Auto) 8.6 H, Lymph # (Auto) 3.8, [place] # (Auto) 0.6, Eos # (Auto) 0.0, Baso # (Auto) 0.1, ESR 24 03/24/18 02:25: Lactate 1.1 03/24/18 03:45: Sodium 161 H*, Potassium 4.0, Chloride 126 H, Carbon Dioxide 25, Anion Gap 14.0, BUN 39 H, Creatinine 1.33 H, Estimated Creat Clear 23, Estimated GFR 39 L, Est GFR ( Amer) 47 L, Glucose 125 H, Calcium 8.3 L, Total Bilirubin 0.4, AST 26, ALT 31, Alkaline Phosphatase 67, C-Reactive Protein 0.3, Total Protein 6.3 L, Albumin 2.8 L, Globulin 3.5 H, Albumin/Globulin Ratio 0.8 L 03/24/18 03:45: PT 150.0 H*, INR 15.78 H Result diagrams: 03/24/18 02:25 03/24/18 03:45 Orders (Tests/Meds): ED MEDICATIONS Generic Name Dose Route Start Last Admin Trade Name Freq PRN Reason Stop Dose Admin Sodium Chloride 1,000 mls @ 999 mls/hr 03/24/18 02:30 03/24/18 02:45 Sod Chlor 0.9% 1000ml Bag IV 03/24/18 03:30 999 mls/hr .Q1H1M FRANDY Administration Ceftriaxone Sodium 1 gm/ 50 mls @ 100 mls/hr 03/24/18 04:30 Sodium Chloride IV 04/07/18 04:29 Q24H FRANDY Protocol Sodium Chloride 10 ml 03/24/18 02:16 Saline Flush 10ml Syringe IV 04/23/18 02:15 NEEDED PRN Maintain IV Site Discontinued Medications Generic Name Dose Route Start Last Admin Trade Name Freq PRN Reason Stop Dose Admin Acetaminophen 650 mg 03/24/18 02:43 03/24/18 02:45 Tylenol 325mg Suppository RC 03/24/18 02:44 650 mg ONCE ONE Administration Phytonadione 10 mg 03/24/18 04:21 Aqua Mephyton 10mg/Ml 1ml Ampule SQ 03/24/18 04:22 ONCE ONE ORDERS Category Date Time Status XR chest portable Stat Exams 12/26/18 02:16 Taken Urinalysis and Microscopic Stat Lab 03/24/18 02:25 Ordered Blood Culture Stat Micro 03/24/18 02:25 Received Urine Culture Stat Micro 03/24/18 02:25 Received - Radiology Data #1 Image(s): Chest Image Reviewed: Yes I reviewed the patient's radiology image Preliminary Findings: Normal/NAD Female Urogenital HPI - General Chief complaint: Urogenital-Female Stated complaint: Blood in urine Time Seen by Provider: 03/24/18 02:25 Mode of Arrival: EMS Limitations: No Limitations Description of Symptoms (Recalled from ER Triage Doc. by RN): residential staff states the pt has had blood in her urine tonight. - History of Present Illness HPI Narrative: wf sent from [facility] for eval of hematuria - pt unable to give hx - MD Complaint: other (hematuria ) Severity: moderate Urinary Symptoms: hematuria : no Associated symptoms: denies other symptoms - Related Data Home Medications Medication Instructions Recorded Confirmed Acetaminophen 500 mg PO Q4HP PRN 04/22/17 03/24/18 Lactulose [Lactulose 10gm/15ml 20 gm PO DAILY PRN 04/22/17 03/24/18 Oral Soln] Levothyroxine Sodium 50 mcg PO DAILY 04/22/17 03/24/18 [Levothyroxine 50mcg (0.05mg) Tab] Loperamide HCl [Loperamide] 2 mg PO Q3HP PRN 04/22/17 03/24/18 OLANZapine [Olanzapine] 2.5 mg PO HS 04/22/17 03/24/18 Sennosides [Senna] 17.2 mg PO TID 04/22/17 03/24/18 Polyethylene Glycol 3350 [Miralax 17 gm PO DAILY 09/30/17 03/24/18 17gm Packet] Mirtazapine 45 mg PO HS 01/13/18 03/24/18 Bisacodyl [Biscolax] 10 mg RC NEEDED PRN 03/24/18 03/24/18 Warfarin Sodium [Coumadin 5mg 5 mg PO DAILY 03/24/18 03/24/18 tablet] Previous Rx's Medication Instructions Recorded Tramadol HCl [Ultram 50mg 50 mg PO BIDP PRN tab 01/15/18 tablet] Allergies Allergy/AdvReac Type Severity Reaction Status Date / Time erythromycin base Allergy Unknown Verified 02/09/18 13:54 [From ERYTHROCIN] [facility] History - Hepatitis A Screen Drug use history?: No High risk sexual behaviors?: No History of sexually transmitted infection?: No Currently employed?: No Childcare worker?: No Do you have indoor plumbing?: Yes Do you have electricity?: Yes Attestation statement:: This patient has been screened for Hepatitis A risk factors. I have reviewed the patient's past medical history: Yes Medical History: Reports:: Chronic Obstructive Pulmonary Disease (COPD), Deep Vein Thrombosis, Depression, Hyperlipidemia, Hypertension, Kidney Stones Denies:: Cancer, Diabetes Mellitus Type 1, Diabetes Mellitus Type 2, Internal Pacemaker, MRSA Other Medical History: Reports: Anemia, Cataracts, Thyroid Disease Other Surgeries: No: Pacemaker Amputation: No Fractures: No - Social History Smoking Status: Never smoker Alcohol Intake: never Occupational Status: retired Housing: residential Household Members: other - Psychiatric History Expresses thoughts of harming self/others: None Suicide Plan Description: No Plan Pschychiatric History:: Reports:: Depression Family Hx:: Unable to obtain ROS Obtained: Yes All systems reviewed & no additional complaints - Constitutional Constitutional: Reports other (change in mental status ) - Eyes Eyes: Denies eye discharge - ENT Ears, Nose, Mouth, and Throat: Denies sore throat - Cardiovascular Cardiovascular: Denies chest pain - Respiratory Respiratory: No cough - Gastrointestinal Gastrointestingal: Denies: diarrhea, vomiting - Genitourinary Female Genitourinary: Reports hematuria - Musculoskeletal Musculoskeletal: Denies joint swelling - Integumentary/Breasts Skin/Breast: Denies rash - Neurologic Neurologic: Denies seizure-like activity Physical Exam - General General appearance: lethargic, cachectic - Head Head exam: normocephalic - Eye Eye exam: Absent: scleral icterus - ENT ENT exam: Present: mucous membranes dry - Neck Neck exam: Present: trachea midline - Respiratory Respiratory exam: Present: other (dec bs bilat ). Absent: respiratory distress - Cardiovascular Cardiovascular exam: Present: regular rate, systolic murmur, +S4 - Abdominal Exam Abdominal exam: Present: soft - Extremities Exam Extremities exam: Present: pedal edema - Neurological Exam Neurological exam: Present: other (obtunded w/o focal changes or posturing ) - Skin Skin exam: Absent: rash
[2018-03-24 04:15] LABS: Erythrocyte Sedimentation Rate 24 mm/hr (0-30)
--- NOTE | 2018-03-24 07:39 | Pharmacy Consult Notes ---
[facility] Pharmacy VTE Monitoring - Patient Demographics Admission date: 03/24/18 Report Date: 03/24/18 Time: 07:38 Allergies/Adverse Reactions: Patient Allergies erythromycin base [From ERYTHROCIN] Allergy (Unknown, Verified 02/09/18 13:54) Height: 1.57 m Weight: 42.694 kg Patient Problems: Current Active Problems Hypernatremia (Acute) UTI (urinary tract infection) (Acute) Low body mass index (BMI) (Acute) Elevated INR (Acute) Renal insufficiency (Acute) - VTE Risk Labs: VTE Related Lab Results Hgb 14.6 g/dL (12.2-16.2) 03/24/18 02:25 Hct 47.0 % (37.0-47.0) 03/24/18 02:25 Plt Count 260 K/mm3 (142-424) 03/24/18 02:25 PT 150.0 seconds (9.4-11.8) H* 03/24/18 03:45 INR 15.78 (0.9-1.1) H 03/24/18 03:45 BUN 39 mg/dL (7-18) H 03/24/18 03:45 Creatinine 1.33 mg/dL (0.55-1.02) H 03/24/18 03:45 Estimated Creat Clear 23 mL/min (50-200) 03/24/18 03:45 Was VTE Risk Assessment Performed: Yes VTE Risk Level: Moderate Risk - Prophylaxis VTE Prophylaxis Ordered?: Yes Types of VTE Prophylaxis: TEDS Knee High Location of Applied Device: Bilateral Lower Extremeties - VTE Diagnosis Confirmed Treatment or plan recommended: Continue Current Treatment
--- NOTE | 2018-03-24 08:37 | History & Physical Report ---
*Admission Date: 03/24/18 *Chief complaint: hematuria *History of present illness: pt sent from [facility] last pm to ed for hematuria and was obtunded and found to have fever -pt is on coumadin - no other hx available and on eval in the ed - had uti and prolonged inr and was admitted with iv abx and vit k [facility] History I have reviewed the patient's past medical history: Yes Medical History: Reports:: Chronic Obstructive Pulmonary Disease (COPD), Deep Vein Thrombosis, Depression, Hyperlipidemia, Hypertension, Kidney Stones Denies:: Cancer, Diabetes Mellitus Type 1, Diabetes Mellitus Type 2, Internal Pacemaker, MRSA Other Medical History: Reports: Anemia, Cataracts, Thyroid Disease Other Surgeries: Yes: Cardiac Catheterization. No: Pacemaker Amputation: No Fractures: No - *Social History Smoking Status: Never smoker Alcohol Intake: never Occupational Status: retired Housing: custodial Household Members: other - Psychiatric History Expresses thoughts of harming self/others: None Suicide Plan Description: No Plan Pschychiatric History:: Reports:: Depression *Family Hx:: Unable to obtain Review of Systems - Review of Systems Review of systems:: unable to obtain - *Neurologic Denies seizure-like activity Meds Home Medications Medication Instructions Recorded Confirmed Type Acetaminophen 500 mg PO Q4HP PRN 04/22/17 03/24/18 History Lactulose [Lactulose 10gm/15ml 20 gm PO DAILYP PRN 04/22/17 03/24/18 History Oral Soln] Levothyroxine Sodium 50 mcg PO DAILY 04/22/17 03/24/18 History [Levothyroxine 50mcg (0.05mg) Tab] Loperamide HCl [Loperamide] 2 mg PO Q3HP PRN 04/22/17 03/24/18 History OLANZapine [Olanzapine] 2.5 mg PO HS 04/22/17 03/24/18 History Polyethylene Glycol 3350 [Miralax 17 gm PO DAILY 09/30/17 03/24/18 History 17gm Packet] Mirtazapine 45 mg PO HS 01/13/18 03/24/18 History Bisacodyl [Biscolax] 10 mg RC DAILYP PRN 03/24/18 03/24/18 History Sennosides/Docusate Sodium 2 each PO TID 03/24/18 03/24/18 History [Senna-S Tablet] Tramadol HCl [Tramadol 50mg 50 mg PO TID 03/24/18 03/24/18 History Tab] Warfarin Sodium [Coumadin 5mg 5 mg PO DAILY 03/24/18 03/24/18 History tablet] Allergies Allergy/AdvReac Type Severity Reaction Status Date / Time erythromycin base Allergy Unknown Verified 02/09/18 13:54 [From ERYTHROCIN] Exam Vital signs and Labs for Last 24 Hours: Temp Pulse Resp BP Pulse Ox 98.1 F 89 18 190/93 H 97 03/24/18 08:00 03/24/18 08:00 03/24/18 08:00 03/24/18 08:00 03/24/18 08:00 Laboratory Results - last 24 hr 03/24/18 02:25: Urine Color Red, Urine Appearance Turbid, Urine pH 8.5, Ur Specific [place] 1.010, Urine Protein 3+, Urine Glucose (UA) Negative, Urine Ketones 1+, Urine Blood 3+, Urine Nitrate Positive, Urine Bilirubin Negative, Urine Urobilinogen 2.0, Ur Leukocyte Esterase 2+ A, Urine RBC 50-100, Urine WBC 5-10, Urine Bacteria 2+, Urine Mucus 1+ 03/24/18 02:25: WBC 13.2 H, RBC 5.01, Hgb 14.6, Hct 47.0, MCV 93.8, MCH 29.2, MCHC 31.1 L, RDW 14.4, Plt Count 260, MPV 9.1, Neut % (Auto) 65.5, Lymph % (Auto) 29.1, [place] % (Auto) 4.7, Eos % (Auto) 0.2, Baso % (Auto) 0.4, Neut # (Auto) 8.6 H, Lymph # (Auto) 3.8, [place] # (Auto) 0.6, Eos # (Auto) 0.0, Baso # (Auto) 0.1, ESR 24 03/24/18 02:25: Lactate 1.1 03/24/18 03:45: Sodium 161 H*, Potassium 4.0, Chloride 126 H, Carbon Dioxide 25, Anion Gap 14.0, BUN 39 H, Creatinine 1.33 H, Estimated Creat Clear 23, Estimated GFR 39 L, Est GFR ( Amer) 47 L, Glucose 125 H, Calcium 8.3 L, Total Bilirubin 0.4, AST 26, ALT 31, Alkaline Phosphatase 67, C-Reactive Protein 0.3, Total Protein 6.3 L, Albumin 2.8 L, Globulin 3.5 H, Albumin/Globulin Ratio 0.8 L 03/24/18 03:45: PT 150.0 H*, INR 15.78 H I & O for Last 24 hours: Intake & Output 03/21/18 03/22/18 03/23/18 03/24/18 11:59 11:59 11:59 11:59 Weight 94 lb 2 oz - Constitutional no acute distress, cachectic - *Routine HEENT Exam Head: Present: normocephalic Eye: Present: EOMI, PERRL ENT: Present: mucous membranes dry - *Routine Neck Exam Absent: JVD - *Routine Respiratory Exam Present: decreased breath sounds. Absent: respiratory distress - *Routine Cardiovascular Exam Present: RRR, murmur, S4 - *Routine Abdominal Exam Present: soft - *Routine Extremities Exam Absent: edema - *Routine Skin Exam Present: intact - *Routine Neurological Exam Present: altered mental status no posturing or focal changes - Routine Psychiatric Exam Present: unable to assess Assessment and Plan (1) Elevated INR Current visit: Yes Status: Acute Category: Medical Code(s): R79.1 - Abnormal coagulation profile (2) Low body mass index (BMI) Current visit: Yes Status: Acute Category: Medical (3) UTI (urinary tract infection) Current visit: Yes Status: Acute Qualifiers: Urinary tract infection type: acute cystitis Hematuria presence: with hematuria Qualified Code(s): N30.01 - Acute cystitis with hematuria Category: Medical Code(s): N39.0 - Urinary tract infection, site not specified (4) Hypernatremia Current visit: Yes Status: Acute Category: Medical Code(s): E87.0 - Hyperosmolality and hypernatremia (5) Renal insufficiency Current visit: Yes Status: Acute Category: Medical Code(s): N28.9 - Disorder of kidney and ureter, unspecified
[2018-03-24 09:21] LABS: INR 15.78 (0.9-1.1)
[2018-03-24 15:25] LABS: Prothrombin Time 76.9 seconds (9.4-11.8)
[2018-03-24 15:26] LABS: INR 7.93 (0.9-1.1)
[2018-03-25 06:10] LABS: Basophils # 0.1 K/mm3 (0-0.2); Basophils % 0.5 % (0.1-2.0); Hematocrit 35.2 % (37.0-47.0); Hemoglobin 10.8 g/dL (12.2-16.2); Lymphocytes # 3.6 K/mm3 (0.7-4.5); Lymphocytes % 28.3 % (10-50); Mean Corpuscular HGB Conc 30.5 g/dL (31.8-35.4); Mean Corpuscular Hemoglobin 29.3 pg (27.0-31.2); Mean Corpuscular Volume 95.9 fl (81-99); Mean Platelet Volume 9.1 fl (7.4-10.4); Monocytes # 0.4 K/mm3 (0.1-1.0); Monocytes % 3.3 % (1.7-9.3); Neutrophils # 8.6 K/mm3 (1.8-7.8); Neutrophils % 67.9 % (37.0-80.0); Platelet Count 197 K/mm3 (142-424); Red Blood Count 3.67 M/mm3 (4.20-5.40); Red Cell Distribution Width 14.4 % (11.5-17.5); White Blood Count 12.6 K/mm3 (4.8-10.8)
[2018-03-25 08:07] LABS: INR 1.32 (0.9-1.1); Prothrombin Time 13.5 seconds (9.4-11.8)
--- NOTE | 2018-03-25 10:03 | Progress Note ---
Internal Medicine - PN: Subj *Date: 03/25/18 *Time: 08:10 Exam Vital signs and Labs for Last 24 Hours: Temp Pulse Resp BP Pulse Ox 97.7 F 91 H 16 164/60 H 98 03/25/18 08:00 03/25/18 08:00 03/25/18 08:00 03/25/18 08:00 03/25/18 08:00 Laboratory Results - last 24 hr 03/24/18 15:00: PT 76.9 H, INR 7.93 H 03/25/18 05:35: WBC 12.6 H, RBC 3.67 L D, Hgb 10.8 L, Hct 35.2 L, MCV 95.9, MCH 29.3, MCHC 30.5 L, RDW 14.4, Plt Count 197, MPV 9.1, Neut % (Auto) 67.9, Lymph % (Auto) 28.3, [place] % (Auto) 3.3, Eos % (Auto) 0.0 L, Baso % (Auto) 0.5, Neut # (Auto) 8.6 H, Lymph # (Auto) 3.6, [place] # (Auto) 0.4, Eos # (Auto) 0.0, Baso # (Auto) 0.1 03/25/18 05:35: Sodium 163 H*, Potassium 4.0, Chloride 130 H, Carbon Dioxide 22, Anion Gap 15.0, BUN 38 H, Creatinine 1.05 H D, Estimated Creat Clear 30, Estimated GFR 51 L, Est GFR ( Amer) 61 D, Glucose 97, Calcium 8.0 L 03/25/18 07:50: PT 13.5 H, INR 1.32 H I & O for Last 24 hours: Intake & Output 03/22/18 03/23/18 03/24/18 03/25/18 11:59 11:59 11:59 11:59 Intake Total 3031 / 3031 Output Total 550 / 550 Balance 2481 / 2481 Weight 94 lb 2 oz 94 lb 5 oz Microbiology Reports for the Last 24 Hours: Microbiology 03/24/18 02:25 Urine,Catheterized Urine Culture - Preliminary - Constitutional no acute distress, thin, chronically ill appearing - *Routine HEENT Exam Head: Present: normocephalic Eye: Present: PERRL ENT: Present: mucous membranes moist - *Routine Neck Exam Present: supple. Absent: lymphadenopathy - *Routine Respiratory Exam Present: CTA bilaterally - *Routine Cardiovascular Exam Present: RRR - *Routine Abdominal Exam Present: soft, normoactive bowel sounds. Absent: tenderness - *Routine Extremities Exam Absent: cyanosis, clubbing, edema - *Routine Skin Exam Present: warm, wounds. Absent: rash Comments: Dressing to right lower leg - *Routine Neurological Exam Present: alert - Routine Psychiatric Exam Present: normal affect Assessment and Plan (1) Elevated INR Current visit: Yes Status: Acute Category: Medical Code(s): R79.1 - Abnormal coagulation profile (2) Low body mass index (BMI) Current visit: Yes Status: Acute Category: Medical (3) UTI (urinary tract infection) Current visit: Yes Status: Acute Qualifiers: Urinary tract infection type: acute cystitis Hematuria presence: with hematuria Qualified Code(s): N30.01 - Acute cystitis with hematuria Category: Medical Code(s): N39.0 - Urinary tract infection, site not specified (4) Hypernatremia Current visit: Yes Status: Acute Category: Medical Code(s): E87.0 - Hyperosmolality and hypernatremia (5) Renal insufficiency Current visit: Yes Status: Acute Category: Medical Code(s): N28.9 - Disorder of kidney and ureter, unspecified - Assessment and plan all Dx Assessment and Plan for all problems:: Rounded with Dr. Mendenhall all orders per Abdirashid Waiting culture results
[2018-03-26 06:16] LABS: Basophils % 0.4 % (0.1-2.0); Eosinophils % 0.1 % (0.1-12.0); Lymphocytes # 2.1 K/mm3 (0.7-4.5); Lymphocytes % 31.8 % (10-50); Mean Corpuscular HGB Conc 31.2 g/dL (31.8-35.4); Mean Corpuscular Volume 96.3 fl (81-99); Mean Platelet Volume 10.1 fl (7.4-10.4); Monocytes # 0.2 K/mm3 (0.1-1.0); Monocytes % 3.2 % (1.7-9.3); Neutrophils # 4.3 K/mm3 (1.8-7.8); Neutrophils % 64.5 % (37.0-80.0); Platelet Count 96 K/mm3 (142-424); Red Blood Count 3.01 M/mm3 (4.20-5.40); Red Cell Distribution Width 14.3 % (11.5-17.5); White Blood Count 6.7 K/mm3 (4.8-10.8)
[2018-03-26 06:25] LABS: Anion Gap 18.7 mEq/L (5-15); Calcium 7.7 mg/dL (8.5-10.1); Potassium 3.7 mmoL/L (3.5-5.1)
[2018-03-26 08:34] LABS: Prothrombin Time 10.3 seconds (9.4-11.8)
--- NOTE | 2018-03-26 09:18 | Discharge Summary ---
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 on Lovenox 30mg sq daily until INR is therapeutic Patient refused to wake up for speech eval will have speech evaluate at long term Recheck a CBC on 03/27/18 For repeat pt/INR on Thursday Objective Vital signs: Temp Pulse Resp BP Pulse Ox 99.3 F 67 17 145/59 H 100 03/26/18 07:38 03/26/18 07:38 03/26/18 07:38 03/26/18 07:38 03/26/18 07:38 no acute distress - *Routine HEENT Exam Head: Present: normocephalic Eye: Present: PERRL ENT: Present: mucous membranes moist - *Routine Respiratory Exam Present: CTA bilaterally - *Routine Cardiovascular Exam Present: RRR - *Routine Abdominal Exam Present: soft, normoactive bowel sounds - *Routine Extremities Exam Present: full ROM - *Routine Skin Exam Present: intact - *Routine Neurological Exam Present: alert - Routine Psychiatric Exam Present: normal affect Results Labs on day of discharge: Labs from last 24 hours 03/26/18 03/26/18 03/26/18 07:56 05:33 05:33 WBC 6.7 D RBC 3.01 L Hgb 9.0 L D Hct 29.0 L MCV 96.3 MCH 30.0 MCHC 31.2 L RDW 14.3 Plt Count 96 L D MPV 10.1 Neut % (Auto) 64.5 Lymph % (Auto) 31.8 [place] % (Auto) 3.2 Eos % (Auto) 0.1 Baso % (Auto) 0.4 Neut # (Auto) 4.3 Lymph # (Auto) 2.1 [place] # (Auto) 0.2 Eos # (Auto) 0.0 Baso # (Auto) 0.0 PT 10.3 INR 1.00 Sodium 161 H* Potassium 3.7 Chloride 126 H Carbon Dioxide 20 L Anion Gap 18.7 H BUN 34 H Creatinine 0.96 Estimated Creat Clear 32 Estimated GFR 56 L Est GFR ( Amer) 68 Glucose 82 Calcium 7.7 L Urine Color Urine Appearance Urine pH Ur Specific [place] Urine Protein Urine Glucose (UA) Urine Ketones Urine Blood Urine Nitrate Urine Bilirubin Urine Urobilinogen Ur Leukocyte Esterase Urine RBC Urine WBC Urine Bacteria Urine Mucus 03/24/18 02:25 WBC RBC Hgb Hct MCV MCH MCHC RDW Plt Count MPV Neut % (Auto) Lymph % (Auto) [place] % (Auto) Eos % (Auto) Baso % (Auto) Neut # (Auto) Lymph # (Auto) [place] # (Auto) Eos # (Auto) Baso # (Auto) PT INR Sodium Potassium Chloride Carbon Dioxide Anion Gap BUN Creatinine Estimated Creat Clear Estimated GFR Est GFR ( Amer) Glucose Calcium Urine Color Red Urine Appearance Turbid Urine pH 8.5 Ur Specific [place] 1.010 Urine Protein 3+ Urine Glucose (UA) Negative Urine Ketones 1+ Urine Blood 3+ Urine Nitrate Positive Urine Bilirubin Negative Urine Urobilinogen 2.0 Ur Leukocyte Esterase 2+ A Urine RBC 50-100 Urine WBC 5-10 Urine Bacteria 2+ Urine Mucus 1+ Preliminary micro results at discharge 03/24/18 02:25 Urine Culture - Preliminary Urine,Catheterized Gram Negative Rods Gram Negative Rods#2 03/24/18 02:25 Blood Culture - Preliminary Blood NO GROWTH AFTER 48 HOURS - Additional Comments Discussed patient with Dr. Mendenhall all orders per Abdirashid DS: Diagnosis - Discharge Diagnosis (1) Elevated INR Status: Acute (2) Low body mass index (BMI) Status: Acute (3) UTI (urinary tract infection) Status: Acute (4) Hypernatremia Status: Acute (5) Renal insufficiency Status: Acute Discharge Plan - Patient Discharge Instructions ACTIVITY: Continue current activity DIET: continue same diet - Follow up Plan Follow up with: Dominick Benavides APRN [Advanced Practice Nurse] - 1 week Disposition: er [facility] Home Medications: Home Medications Medication Instructions Recorded Confirmed Type Acetaminophen 500 mg PO Q4HP PRN 04/22/17 03/24/18 History Lactulose [Lactulose 10gm/15ml 20 gm PO DAILYP PRN 04/22/17 03/24/18 History Oral Soln] Levothyroxine Sodium 50 mcg PO DAILY 04/22/17 03/24/18 History [Levothyroxine 50mcg (0.05mg) Tab] Loperamide HCl [Loperamide] 2 mg PO Q3HP PRN 04/22/17 03/24/18 History OLANZapine [Olanzapine] 2.5 mg PO HS 04/22/17 03/24/18 History Polyethylene Glycol 3350 [Miralax 17 gm PO DAILY 09/30/17 03/24/18 History 17gm Packet] Mirtazapine 45 mg PO HS 01/13/18 03/24/18 History Bisacodyl [Biscolax] 10 mg RC DAILYP PRN 03/24/18 03/24/18 History Sennosides/Docusate Sodium 2 each PO TID 03/24/18 03/24/18 History [Senna-S Tablet] Tramadol HCl [Tramadol 50mg 50 mg PO TID 03/24/18 03/24/18 History Tab] Warfarin Sodium [Coumadin 5mg 5 mg PO DAILY 03/24/18 03/24/18 History tablet] Ceftriaxone Sodium [Rocephin 1gm 1 gm IV Q24H 7 Days #7 vial 03/26/18 Rx vial] Enoxaparin Sodium [Lovenox 30 mg SQ DAILY 7 Days #7 syringe 03/26/18 Rx 30mg/0.3mL syringe] Prescriptions/Medication Reconciliation: New Warfarin Sodium [Coumadin 5mg tablet] 2.5 mg PO COUMADIN tablet Enoxaparin Sodium [Lovenox 30mg/0.3mL syringe] 30 mg SQ DAILY 7 Days #7 syringe Ceftriaxone Sodium [Rocephin 1gm vial] 1 gm IV Q24H 7 Days #7 vial Continue OLANZapine [Olanzapine] 2.5 mg PO HS Loperamide HCl [Loperamide] 2 mg PO Q3HP PRN PRN Reason: Diarrhea Lactulose [Lactulose 10gm/15ml Oral Soln] 20 gm PO DAILYP PRN PRN Reason: BOWEL CARE Acetaminophen 500 mg PO Q4HP PRN PRN Reason: As Needed For Fever Or Pain Polyethylene Glycol 3350 [Miralax 17gm Packet] 17 gm PO DAILY Warfarin Sodium [Coumadin 5mg tablet] 5 mg PO DAILY Bisacodyl [Biscolax] 10 mg RC DAILYP PRN PRN Reason: Constipation Tramadol HCl [Tramadol 50mg Tab] 50 mg PO TID Levothyroxine Sodium [Levothyroxine 50mcg (0.05mg) Tab] 50 mcg PO DAILY Mirtazapine 45 mg PO HS Sennosides/Docusate Sodium [Senna-S Tablet] 2 each PO TID
== END 2018-03-26 14:40 | DRG 690 ==
LOC: 2ND 02:06 → ER 02:06 → OBSVTOIN 04:55 → 2ND 05:00
PROVIDERS: ADMIT Emergency Medicine; ATTEND Emergency Medicine
DX: B96.4 Proteus (mirabilis) (morganii) as the cause of diseases classified elsewhere; E87.0 Hyperosmolality and hypernatremia; R79.1 Abnormal coagulation profile; J44.9 Chronic obstructive pulmonary disease, unspecified; Z79.899 Other long term (current) drug therapy; Z79.01 Long term (current) use of anticoagulants; Z88.1 Allergy status to other antibiotic agents; B96.20 Unspecified Escherichia coli [E. coli] as the cause of diseases classified elsewhere; N30.01 Acute cystitis with hematuria; Z86.718 Personal history of other venous thrombosis and embolism

== ENCOUNTER → 2018-03-27 06:19 | Outpatient (REF) | payer MEDICARE, MEDICAID, SELFPAY ==
[2018-03-27 07:33] LABS: Basophils % 0.3 % (0.1-2.0); Eosinophils % 0.7 % (0.1-12.0); Hematocrit 27.6 % (37.0-47.0); Hemoglobin 8.6 g/dL (12.2-16.2); Mean Corpuscular Hemoglobin 29.8 pg (27.0-31.2); Mean Platelet Volume 11.3 fl (7.4-10.4); Monocytes # 0.1 K/mm3 (0.1-1.0); Monocytes % 2.7 % (1.7-9.3); Neutrophils # 3.2 K/mm3 (1.8-7.8); Neutrophils % 59.3 % (37.0-80.0); Platelet Count 111 K/mm3 (142-424); Red Blood Count 2.87 M/mm3 (4.20-5.40); Red Cell Distribution Width 14.6 % (11.5-17.5); White Blood Count 5.4 K/mm3 (4.8-10.8)
== END ==
LOC: LAB 06:19
PROVIDERS: Visit Provider Emergency Medicine
DX: D64.9 Anemia, unspecified (principal)
CPT/HCPCS: 85025

== ENCOUNTER → 2019-02-09 19:44 | Outpatient (CLI) | payer MEDICARE, MEDICAID, SELFPAY ==
[2019-02-09 20:02] LABS: Alanine Aminotransferase 17 U/L (12-78); Albumin Level 3.1 gm/dL (3.4-5.0); Albumin/Globulin Ratio 0.9 (1.1-1.8); Alkaline Phosphatase 72 U/L (46-116); Anion Gap 13.5 mEq/L (5-15); Aspartate Amino Transferase 19 U/L (15-37); Bilirubin,Total 0.2 mg/dL (0.2-1.0); Blood Urea Nitrogen 20 mg/dL (7-18); Calcium 8.5 mg/dL (8.5-10.1); Carbon Dioxide 26 mmol/L (21.0-32.0); Chloride 109 mmol/L (98-107); Estimated Glomerular Filt Rate 61 ml/min (>60); GFR (African American) 73 ML/MIN (>60); Globulin 3.5 gm/dl (1.3-3.2); Glucose 89 mg/dL (74-106); Potassium 4.5 mmoL/L (3.5-5.1); Sodium 144 mmol/L (136-145); Total Protein,Serum 6.6 gm/dL (6.4-8.2)
== END ==
PROVIDERS: Visit Provider Emergency Medicine
DX: Z51.81 Encounter for therapeutic drug level monitoring (principal); Z79.01 Long term (current) use of anticoagulants
CPT/HCPCS: 80053

== ENCOUNTER → 2019-03-04 15:37 | Outpatient (CLI) | payer MEDICARE, MEDICAID, SELFPAY ==
[2019-03-04 15:51] LABS: Basophils % 0.2 % (0.1-2.0); Eosinophils % 0.2 % (0.1-12.0); Hematocrit 41.2 % (37.0-47.0); Lymphocytes # 0.9 K/mm3 (0.7-4.5); Lymphocytes % 7.9 % (10-50); Mean Corpuscular HGB Conc 29.3 g/dL (31.8-35.4); Mean Corpuscular Hemoglobin 28.3 pg (27.0-31.2); Mean Corpuscular Volume 96.8 fl (81-99); Mean Platelet Volume 8.9 fl (7.4-10.4); Monocytes # 0.5 K/mm3 (0.1-1.0); Monocytes % 4.1 % (1.7-9.3); Neutrophils # 9.5 K/mm3 (1.8-7.8); Neutrophils % 87.6 % (37.0-80.0); Platelet Count 233 K/mm3 (142-424); Red Blood Count 4.25 M/mm3 (4.20-5.40); Red Cell Distribution Width 13.2 % (11.5-17.5); White Blood Count 10.8 K/mm3 (4.8-10.8)
[2019-03-04 15:54] LABS: MANUAL DIFFERENTIAL MANUAL DIFFERENTIAL (MANUAL DIFF)
[2019-03-04 18:18] LABS: Lymphocytes % 8 % (10-50); Monocytes % 2 % (2-9); Neutrophils % 90 % (42-76); Platelet Estimate Normal; RBC Morphology Normal; Total Cells Counted 100
== END ==
PROVIDERS: Visit Provider Emergency Medicine
DX: R50.9 Fever, unspecified (principal)
CPT/HCPCS: 85007; 85025; 87275; 87276

== ENCOUNTER 2019-03-09 00:48 | Observation (INO) ==
[2019-03-09 01:35] LABS: Basophils # 0.1 K/mm3 (0-0.2); Basophils % 0.8 % (0.1-2.0); Eosinophils % 0.3 % (0.1-12.0); Hemoglobin 12.8 g/dL (12.2-16.2); Lymphocytes # 3.2 K/mm3 (0.7-4.5); Lymphocytes % 32.8 % (10-50); Mean Corpuscular HGB Conc 30.4 g/dL (31.8-35.4); Mean Corpuscular Volume 93.3 fl (81-99); Mean Platelet Volume 10.4 fl (7.4-10.4); Monocytes # 0.5 K/mm3 (0.1-1.0); Monocytes % 4.8 % (1.7-9.3); Neutrophils # 5.9 K/mm3 (1.8-7.8); Neutrophils % 61.2 % (37.0-80.0); Platelet Count 297 K/mm3 (142-424); Red Cell Distribution Width 13.3 % (11.5-17.5); White Blood Count 9.6 K/mm3 (4.8-10.8)
[2019-03-09 01:48] LABS: Anion Gap 16.5 mEq/L (5-15); Blood Urea Nitrogen 29 mg/dL (7-18); C-Reactive Protein 2.3 mg/dL (0.0-0.9); Calcium 8.8 mg/dL (8.5-10.1); Carbon Dioxide 25 mmol/L (21.0-32.0); Chloride 121 mmol/L (98-107); Glucose 122 mg/dL (74-106)
--- NOTE | 2019-03-09 01:51 | Emergency Department Note ---
ED Disposition Clinical Impression: Acute febrile illness, Renal insufficiency, Low body mass index (BMI), Paranoid schizophrenia, Hypernatremia, Elevated erythrocyte sedimentation rate UTI (urinary tract infection) Qualifiers: Urinary tract infection type: site unspecified Hematuria presence: without hematuria Qualified Code(s): N39.0 - Urinary tract infection, site not specified Hypothyroidism, unspecified Qualifiers: Hypothyroidism type: acquired Qualified Code(s): E03.9 - Hypothyroidism, unspecified Dysphagia Qualifiers: Dysphagia type: oral phase Qualified Code(s): R13.11 - Dysphagia, oral phase Disposition: Admitted as Observation Condition on Discharge: Fair Referrals: Bryce Mendenhall MD [Primary Care Provider] - - Critical Care Critical Care Time: No Attestation: On 03/09/19, the high probability of a clinically significant, sudden or life threatening deterioration of the following system(s) required my full and direct attention, intervention and personal management. The time I documented below is in addition to time spent performing reported procedures but includes the following listed in this critical care notation. Medical Decision Making - Medical Records Medical records reviewed: Yes: I reviewed the patient's medical records. - Brandt Inquiry Pt receiving controlled substance: No Vital Signs: 03/09/19 00:46 03/09/19 00:47 03/09/19 01:48 Temperature 102.5 F H 102.5 F H 100.1 F H Temperature Source Rectal Rectal Rectal Pulse Rate [Left Brachial] 82 80 62 Respiratory Rate 17 17 16 Blood Pressure [Left Arm] 152/74 H 152/74 H 141/61 H Blood Pressure Mean [Left Arm] 100 100 87 Blood Pressure Source [Left Arm] Automatic Cuff Automatic Cuff Automatic Cuff Blood Pressure Position [Left Arm] Supine Supine Supine 02 Sat by Pulse Oximetry 93 L 93 L 91 L Oxygen Delivery Method Room Air Room Air Room Air - Lab Data Lab results reviewed: Yes: I reviewed the patient's lab results. Lab Results 03/09/19 01:00: WBC 9.6, RBC 4.50, Hgb 12.8, Hct 42.0, MCV 93.3, MCH 28.4, MCHC 30.4 L, RDW 13.3, Plt Count 297, MPV 10.4, Neut % (Auto) 61.2, Lymph % (Auto) 32.8, [place] % (Auto) 4.8, Eos % (Auto) 0.3, Baso % (Auto) 0.8, Neut # (Auto) 5.9, Lymph # (Auto) 3.2, [place] # (Auto) 0.5, Eos # (Auto) 0.0, Baso # (Auto) 0.1, ESR 97 H 03/09/19 01:00: Sodium 159 H*, Potassium 3.5, Chloride 121 H, Carbon Dioxide 25, Anion Gap 16.5 H, BUN 29 H, Creatinine 1.07 H, Estimated Creat Clear 31, Estimated GFR 50 L, Est GFR ( Amer) 60, Glucose 122 H, Calcium 8.8, Troponin I < 0.02, C-Reactive Protein 2.3 H 03/09/19 01:00: Lactate 0.8 03/09/19 01:35: Urine Color Dark yellow, Urine Appearance Cloudy, Urine pH 5.5, Ur Specific [place] >= 1.030, Urine Protein 2+, Urine Glucose (UA) Negative, Urine Ketones Negative, Urine Blood 3+, Urine Nitrate Negative, Urine Bilirubin Negative, Urine Urobilinogen 0.2, Ur Leukocyte Esterase Trace, Urine RBC Tntc, U rine WBC 5-10, Urine Bacteria 1+ Result diagrams: 03/09/19 01:00 03/09/19 01:00 Orders (Tests/Meds): ED MEDICATIONS Generic Name Dose Route Start Last Admin Trade Name Freq PRN Reason Stop Dose Admin Sodium Chloride 1,000 mls @ 999 mls/hr 03/09/19 01:15 03/09/19 01:05 Sod Chlor 0.9% 1000ml Bag IV 03/09/19 02:15 999 mls/hr .Q1H1M FRANDY Administration Ertapenem 1 gm/ Sodium 50 mls @ 100 mls/hr 03/09/19 03:15 03/09/19 03:11 Chloride IV 03/23/19 03:14 100 mls/hr Q24H FRANDY Administration Protocol Discontinued Medications Generic Name Dose Route Start Last Admin Trade Name Freq PRN Reason Stop Dose Admin Acetaminophen 650 mg 03/09/19 01:00 03/09/19 00:55 Acetaminophen 650mg Suppository RC 03/09/19 01:01 650 mg ONCE ONE Administration ORDERS Category Date Time Status XR chest AP Stat Exams 03/09/19 01:01 Taken Troponin I Q3H Lab 03/09/19 04:15 Ordered Troponin I Q3H Lab 03/09/19 07:15 Ordered Blood Culture Stat Micro 03/09/19 01:00 Received Urine Culture(cathed specimen) Stat Micro 03/09/19 02:57 Ordered - Radiology Data #1 Image(s): Chest Image Reviewed: Yes I reviewed the patient's radiology image Preliminary Findings: Abnormal (no def inflitrate ) Fever HPI - General Chief Complaint: Fever Stated Complaint: fever Time Seen by Provider: 03/09/19 01:00 Mode of Arrival: EMS Source of Information: Patient, EMS, Medical Record Limitations: Physical Limitations Description of Symptoms (Recalled from ER Triage Doc. by RN): per ems. pt has had a fever for a couple of days and has been taking keflex for 5 days BID with no improvement. staff stated pt has been lethargic and hasnt been drinking enough fluids. - History of Present Illness HPI Narrative: pt was sent from [facility] for eval of fever - pt was unable to give hx -no reported cough and no vomiting or diarrhea - MD complaint: fever Onset (ago): day(s) Associated symptoms: denies other symptoms Treatments prior to arrival fever: antibiotics - Related Data Home Medications Medication Instructions Recorded Confirmed Acetaminophen 500 mg PO Q4HP PRN 04/22/17 03/09/19 Lactulose [Lactulose 10gm/15ml 20 gm PO DAILYP PRN 04/22/17 03/09/19 Oral Soln] Levothyroxine Sodium 50 mcg PO DAILY 04/22/17 03/09/19 [Levothyroxine 50mcg (0.05mg) Tab] Loperamide HCl [Loperamide] 2 mg PO Q3HP PRN 04/22/17 03/09/19 Mirtazapine 45 mg PO HS 01/13/18 03/09/19 Sennosides/Docusate Sodium 2 each PO TID 03/24/18 03/09/19 [Senna-S Tablet] Tramadol HCl [Tramadol 50mg 50 mg PO TID 03/24/18 03/09/19 Tab] Rivaroxaban [Xarelto 20mg Tablet*] 20 mg PO DAILY 03/09/19 03/09/19 cephALEXin [Keflex 500mg Cap] 500 mg PO BID 03/09/19 03/09/19 Allergies Allergy/AdvReac Type Severity Reaction Status Date / Time erythromycin base Allergy Unknown Verified 01/11/19 19:19 [From ERYTHROCIN] [facility] History - Hepatitis A Screen Drug use history?: No High risk sexual behaviors?: No History of sexually transmitted infection?: No Currently employed?: No Childcare worker?: No Do you have indoor plumbing?: Yes Do you have electricity?: Yes Attestation statement:: This patient has been screened for Hepatitis A risk factors. I have reviewed the patient's past medical history: Yes Medical History: Reports:: Chronic Obstructive Pulmonary Disease (COPD), Deep Vein Thrombosis, Depression, Hyperlipidemia, Hypertension, Kidney Stones, Osteoporosis, Urinary Tract Infection Denies:: Cancer, Diabetes Mellitus Type 1, Diabetes Mellitus Type 2, Internal Pacemaker, MRSA Other Medical History: Reports: Anemia, Cataracts, Hypothyroidism, Osteoporosis, Thyroid Disease Comment: paranoid,schizophrenia,difficulty walking,dysphasia,delusional disorder Other Surgeries: Yes: Cardiac Catheterization. No: Pacemaker Amputation: No Fractures: No - Social History Smoking Status: Never smoker Alcohol Intake: never Occupational Status: retired Housing: alf Household Members: other - Psychiatric History Pschychiatric History:: Reports:: Depression Family Hx:: Unable to obtain ROS Obtained: Yes All systems reviewed & no additional complaints, Yes unobtainable due to mental status - Constitutional Constitutional: Reports fever(s), Denies weakness - Eyes Eyes: Denies eye discharge - ENT Ears, Nose, Mouth, and Throat: Reports dry mouth - Cardiovascular Cardiovascular: Denies chest pain, Denies dyspnea - Respiratory Respiratory: No cough - Gastrointestinal Gastrointestingal: Denies: abdominal pain, diarrhea, vomiting - Genitourinary Female Genitourinary: Denies hematuria - Musculoskeletal Musculoskeletal: Denies joint pain, Denies joint swelling - Integumentary/Breasts Skin/Breast: Denies rash - Neurologic Neurologic: Reports as per HPI, Denies headache(s), Denies seizure-like activity Physical Exam - General General appearance: lethargic - Head Head exam: normocephalic - Eye Eye exam: Present: PERRL, EOMI. Absent: scleral icterus - ENT ENT exam: Present: mucous membranes dry - Neck Neck exam: Present: trachea midline. Absent: meningismus - Respiratory Respiratory exam: Present: other (dec bs bilat ). Absent: respiratory distress - Cardiovascular Cardiovascular exam: Present: regular rate, systolic murmur, +S4 - Abdominal Exam Abdominal exam: Present: soft. Absent: guarding, rebound - Extremities Exam Extremities exam: Present: other (flexion changes lower ext ) - Back Exam Back exam: Present: normal inspection - Neurological Exam Neurological exam: Present: other (no focal changes and no posuturing ) - Skin Skin exam: Present: intact
[2019-03-09 01:54] LABS: Sodium 159 mmol/L (136-145)
[2019-03-09 02:27] LABS: Erythrocyte Sedimentation Rate 97 mm/hr (0-30)
[2019-03-09 04:19] LABS: Basophils # 0.1 K/mm3 (0-0.2); Basophils % 0.5 % (0.1-2.0); Eosinophils % 0.3 % (0.1-12.0); Hematocrit 39.1 % (37.0-47.0); Lymphocytes # 3.7 K/mm3 (0.7-4.5); Lymphocytes % 40.9 % (10-50); Mean Corpuscular HGB Conc 30.6 g/dL (31.8-35.4); Mean Corpuscular Volume 93.3 fl (81-99); Mean Platelet Volume 9.6 fl (7.4-10.4); Monocytes # 0.4 K/mm3 (0.1-1.0); Monocytes % 3.9 % (1.7-9.3); Neutrophils # 4.9 K/mm3 (1.8-7.8); Neutrophils % 54.4 % (37.0-80.0); Platelet Count 240 K/mm3 (142-424); Red Cell Distribution Width 13.2 % (11.5-17.5)
[2019-03-09 04:30] LABS: Anion Gap 14.5 mEq/L (5-15); Calcium 8.2 mg/dL (8.5-10.1)
[2019-03-09 08:03] LABS: Anion Gap 12.7 mEq/L (5-15); Calcium 8.3 mg/dL (8.5-10.1)
--- NOTE | 2019-03-09 08:17 | Pharmacy Consult Notes ---
[facility] Pharmacy VTE Monitoring - Patient Demographics Admission date: 03/09/19 Report Date: 03/09/19 Time: 08:17 Allergies/Adverse Reactions: Patient Allergies erythromycin base [From ERYTHROCIN] Allergy (Unknown, Verified 01/11/19 19:19) Height: 1.57 m Weight: 49.612 kg Patient Problems: Current Active Problems UTI (urinary tract infection) (Acute) Hypernatremia (Acute) Acute febrile illness (Acute) Dysphagia (Acute) Elevated erythrocyte sedimentation rate (Acute) Renal insufficiency (Chronic) Low body mass index (BMI) (Chronic) Paranoid schizophrenia (Chronic) Hypothyroidism, unspecified (Chronic) - VTE Risk Labs: VTE Related Lab Results Hgb 12.0 g/dL (12.2-16.2) L 03/09/19 04:10 Hct 39.1 % (37.0-47.0) 03/09/19 04:10 Plt Count 240 K/mm3 (142-424) 03/09/19 04:10 BUN 27 mg/dL (7-18) H 03/09/19 07:45 Creatinine 1.05 mg/dL (0.55-1.02) H 03/09/19 07:45 Estimated Creat Clear 35 mL/min (50-200) 03/09/19 07:45 Was VTE Risk Assessment Performed: Yes VTE Score: 5 VTE Risk Level: Low Risk - Prophylaxis VTE Prophylaxis Ordered?: Yes Types of VTE Prophylaxis: TEDS Knee High Location of Applied Device: Bilateral Lower Extremeties - VTE Diagnosis Confirmed Treatment or plan recommended: Continue Current Treatment
--- NOTE | 2019-03-09 12:19 | History & Physical Report ---
*Admission Date: 03/09/19 <Bryce Mendenhall 03/09/19 12:19> *Chief complaint: fever <Bryce Mendenhall 03/09/19 12:19> *History of present illness: this wf was sent from [facility] - <Bryce Mendenhall 03/09/19 12:19> [facility] History I have reviewed the patient's past medical history: Yes <Dominick Benavides - 03/10/19 09:16> Medical History: Reports:: Chronic Obstructive Pulmonary Disease (COPD), Deep Vein Thrombosis, Depression, Hyperlipidemia, Hypertension, Kidney Stones, Osteoporosis, Urinary Tract Infection Denies:: Cancer, Diabetes Mellitus Type 1, Diabetes Mellitus Type 2, Internal Pacemaker, MRSA <Bryce Mendenhall 03/09/19 12:19> *Have you ever received a pneumonia vaccine?: Yes <Bryce Mendenhall 03/09/19 12:19> *Have you received a flu vaccine this season?: Yes <Bryce Mendenhall 03/09/19 12:19> Other Medical History: Reports: Anemia, Cataracts, Hypothyroidism, Osteoporosis, Thyroid Disease <rByce Mendenhall 03/09/19 12:19> Other Surgeries: Yes: Cardiac Catheterization. No: Pacemaker. Comment Only: No Previous Surgery (UNKNOWN IF PT HAS HAD ANY SURGERIES) <Bryce Mendenhall 03/09/19 12:19> Amputation: No <Bryce Mendenhall 03/09/19 12:19> Fractures: No <Bryce Mendenhall 03/09/19 12:19> - *Social History Smoking Status: Unknown if ever smoked <AbdirashidBryce Ramirez 03/09/19 12:19> Alcohol Intake: never <Bryce Mendenhall 03/09/19 12:19> *Occupational Status:: retired <Bryce Mendenhall 03/09/19 12:19> Housing: snf <AbdirashidBryce Ramirez 03/09/19 12:19> Household Members: other <AbdirashidBryce Ramirez 03/09/19 12:19> *Travel in the last 8 weeks: None <Bryce Mendenhall 03/09/19 12:19> - Psychiatric History Pschychiatric History:: Reports:: Depression <AbdirashidBryce Ramirez 03/09/19 12:19> Family Hx:: Unable to obtain <Bryce Mendenhall - 03/09/19 12:19> Review of Systems - Review of Systems Review of systems:: pertinent systems reviewed and negative unless documented below <Dominick Benavides 03/10/19 09:16> - Constitutional Reports fever(s) <Dominick Benavides 03/10/19 09:16> - Eyes Denies change in vision <Dominick Benavides 03/10/19 09:16> - ENT Denies nasal congestion, Denies neck pain <Dominick Benavides 03/10/19 09:16> - *Cardiovascular Denies chest pain at rest, Denies excessive sweating <Dominick Benavides 03/10/19 09:16> - *Respiratory Denies chest congestion <Dominick Benavides 03/10/19 09:16> - *Gastrointestinal Denies bloating, Denies nausea, Denies vomiting <Dominick Benavides 03/10/19 09:16> - *Genitourinary Denies urinary incontinence <Dominick Benavides 03/10/19 09:16> - *Musculoskeletal Denies decreased muscle mass <Dominick Benavides 03/10/19 09:16> - Integumentary/Breasts Denies rash <Dominick Benavides 03/10/19 09:16> - *Neurologic Denies dizziness <Dominick Benavides 03/10/19 09:16> Denies headache(s), Denies seizure-like activity, Denies weakness <Bryce Mendenhall - 03/09/19 12:19> - Psychiatric Denies anxiety <Dominick Benavides 03/10/19 09:16> - Endocrine Denies excessive sweating <Dominick Benavides 03/10/19 09:16> - Hematologic/Lymphatic Denies enlarged lymph nodes <Dominick Benavides 03/10/19 09:16> - Allergic/Immunologic Denies itchy eyes <Dominick Benavides 03/10/19 09:16> Meds Home Medications Medication Instructions Recorded Confirmed Type Acetaminophen 500 mg PO Q4HP PRN 04/22/17 03/09/19 History Lactulose [Lactulose 10gm/15ml 20 gm PO DAILYP PRN 04/22/17 03/09/19 History Oral Soln] Levothyroxine Sodium 75 mcg PO DAILY 04/22/17 03/09/19 History [Levothyroxine 50mcg (0.05mg) Tab] Loperamide HCl [Loperamide] 2 mg PO Q3HP PRN 04/22/17 03/09/19 History Sennosides/Docusate Sodium 2 each PO TID 03/24/18 03/09/19 History [Senna-S Tablet] Tramadol HCl [Tramadol 50mg 50 mg PO TID 03/24/18 03/09/19 History Tab] Docusate Sodium [Docusate Sod 250 mg PO BID 03/09/19 03/09/19 History Liquid 100mg/10mL udc] Mirtazapine [Remeron 15mg tablet] 15 mg PO HS 03/09/19 03/09/19 History Rivaroxaban [Xarelto 20mg Tablet*] 20 mg PO DAILY 03/09/19 03/09/19 History cephALEXin [Keflex 500mg Cap] 500 mg PO BID 03/09/19 03/09/19 History <Dominick Benavides - 03/10/19 09:16> Allergies Allergy/AdvReac Type Severity Reaction Status Date / Time erythromycin base Allergy Unknown Verified 01/11/19 19:19 [From ERYTHROCIN] <Dominick Benavides - 03/10/19 09:16> Exam Vital signs and Labs for Last 24 Hours: Temp Pulse Resp BP Pulse Ox 99.8 F H 62 17 143/65 H 97 03/10/19 08:00 03/10/19 08:00 03/10/19 08:00 03/10/19 08:00 03/10/19 08:00 <Dominick Benavides - 03/10/19 09:16> Temp Pulse Resp BP Pulse Ox 97.9 F 63 18 162/77 H 97 03/09/19 11:52 03/09/19 11:52 03/09/19 11:52 03/09/19 11:52 03/09/19 11:52 Laboratory Results - last 24 hr 03/09/19 01:00: WBC 9.6, RBC 4.50, Hgb 12.8, Hct 42.0, MCV 93.3, MCH 28.4, MCHC 30.4 L, RDW 13.3, Plt Count 297, MPV 10.4, Neut % (Auto) 61.2, Lymph % (Auto) 32.8, [place] % (Auto) 4.8, Eos % (Auto) 0.3, Baso % (Auto) 0.8, Neut # (Auto) 5.9, Lymph # (Auto) 3.2, [place] # (Auto) 0.5, Eos # (Auto) 0.0, Baso # (Auto) 0.1, ESR 97 H 03/09/19 01:00: Sodium 159 H*, Potassium 3.5, Chloride 121 H, Carbon Dioxide 25, Anion Gap 16.5 H, BUN 29 H, Creatinine 1.07 H, Estimated Creat Clear 31, Estimated GFR 50 L, Est GFR ( Amer) 60, Glucose 122 H, Calcium 8.8, Troponin I < 0.02, C-Reactive Protein 2.3 H 03/09/19 01:00: Lactate 0.8 03/09/19 01:35: Urine Color Dark yellow, Urine Appearance Cloudy, Urine pH 5.5, Ur Specific [place] >= 1.030, Urine Protein 2+, Urine Glucose (UA) Negative, Urine Ketones Negative, Urine Blood 3+, Urine Nitrate Negative, Urine Bilirubin Negative, Urine Urobilinogen 0.2, Ur Leukocyte Esterase Trace, Urine RBC Tntc, Urine WBC 5-10, Urine Bacteria 1+ 03/09/19 04:10: Troponin I 0.02 03/09/19 04:10: WBC 9.0, RBC 4.20, Hgb 12.0 L, Hct 39.1, MCV 93.3, MCH 28.5, MCHC 30.6 L, RDW 13.2, Plt Count 240, MPV 9.6, Neut % (Auto) 54.4, Lymph % (Auto) 40.9, [place] % (Auto) 3.9, Eos % (Auto) 0.3, Baso % (Auto) 0.5, Neut # (Auto) 4.9, Lymph # (Auto) 3.7, [place] # (Auto) 0.4, Eos # (Auto) 0.0, Baso # (Auto) 0.1 03/09/19 04:10: Sodium 160 H*, Potassium 3.5, Chloride 123 H, Carbon Dioxide 26, Anion Gap 14.5, BUN 30 H, Creatinine 1.03 H, Estimated Creat Clear 35, Estimated GFR 52 L, Est GFR ( Amer) 63, Glucose 116 H, Calcium 8.2 L, Magnesium 2.2 03/09/19 07:45: Troponin I 0.03 03/09/19 07:45: Sodium 159 H*, Potassium 3.7, Chloride 123 H, Carbon Dioxide 27, Anion Gap 12.7, BUN 27 H, Creatinine 1.05 H, Estimated Creat Clear 35, Estimated GFR 51 L, Est GFR ( Amer) 61, Glucose 104, Calcium 8.3 L <Bryce Mendenhall - 03/09/19 12:19> I & O for Last 24 hours: Intake & Output 03/07/19 03/08/19 03/09/19 03/10/19 11:59 11:59 11:59 11:59 Intake Total 0 / 0 1701 / 1701 Output Total 1125 / 1125 Balance 0 / 0 576 / 576 Weight 109 lb 6.012 oz 111 lb 3 oz <Dominick Benavides - 03/10/19 09:16> Intake & Output 03/07/19 03/08/19 03/09/19 03/10/19 11:59 11:59 11:59 11:59 Intake Total 0 / 0 Balance 0 / 0 Weight 109 lb 6.012 oz <Bryce Mendenhall - 03/09/19 12:19> Microbiology Reports for the Last 24 Hours: Microbiology 03/09/19 01:35 Urine,Catheterized Urine Culture - Preliminary NO GROWTH AFTER 24 HOURS <Dominick Benavides - 03/10/19 09:16> - Constitutional no acute distress, thin, chronically ill appearing <Dominick Benavides - 03/10/19 09:16> - *Routine HEENT Exam Head: Present: normocephalic <Dominick Benavides - 03/10/19 09:16> Eye: Present: PERRL <Dominick Benavides - 03/10/19 09:16> ENT: Present: mucous membranes moist <Dominick Benavides - 03/10/19 09:16> - *Routine Neck Exam Present: supple. Absent: lymphadenopathy <Dominick Benavides - 03/10/19 09:16> - *Routine Respiratory Exam Present: CTA bilaterally <Dominick Benavides - 03/10/19 09:16> - *Routine Cardiovascular Exam Present: RRR <[facility] 03/10/19 09:16> - *Routine Abdominal Exam Present: soft, normoactive bowel sounds. Absent: tenderness <Dominick Benavides 03/10/19 09:16> - *Routine Extremities Exam Present: full ROM. Absent: cyanosis, clubbing, edema <Dominick caballero 03/10/19 09:16> - *Routine Skin Exam Present: warm. Absent: rash <Dominick caballero 03/10/19 09:16> - *Routine Neurological Exam Present: alert <[facility] 03/10/19 09:16> - Routine Psychiatric Exam Present: normal affect <Dominick Benavides 03/10/19 09:16> Assessment and Plan (1) Fever Current visit: Yes Status: Acute Qualifiers: Fever type: due to other condition Qualified Code(s): R50.81 - Fever presenting with conditions classified elsewhere Category: Medical Code(s): R50.9 - Fever, unspecified (2) Hyponatremia Current visit: Yes Status: Acute Category: Medical Code(s): E87.1 - Hypo-o smolality and hyponatremia (3) Elevated erythrocyte sedimentation rate Current visit: Yes Status: Acute Category: Medical Code(s): R70.0 - Elevated erythrocyte sedimentation rate (4) UTI (urinary tract infection) Current visit: Yes Status: Acute Qualifiers: Urinary tract infection type: site unspecified Hematuria presence: without hematuria Qualified Code(s): N39.0 - Urinary tract infection, site not specified Category: Medical Code(s): N39.0 - Urinary tract infection, site not specified (5) Paranoid schizophrenia Current visit: Yes Status: Chronic Category: Medical Code(s): F20.0 - Paranoid schizophrenia (6) Delusional disorder Current visit: No Status: Chronic Category: Medical Code(s): F22 - Delusional disorders (7) Dementia without behavioral disturbance Current visit: No Status: Chronic Qualifiers: Dementia type: associated with other underlying disease Qualified Code(s): F02.80 - Dementia in other diseases classified elsewhere without behavioral disturbance Category: Medical Code(s): F03.90 - Unspecified dementia without behavioral disturbance (8) Difficulty in walking, not elsewhere classified Current visit: No Status: Chronic Category: Medical Code(s): R26.2 - Difficulty in walking, not elsewhere classified (9) Dvt femoral (deep venous thrombosis) Current visit: No Status: Chronic Qualifiers: Chronicity: chronic Laterality: bilateral Qualified Code(s): I82.513 - 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
--- NOTE | 2019-03-10 09:42 | Discharge Summary ---
General - General Admission date:: 03/09/19 Discharge date: 03/10/19 HPI HPI: this wf was sent from [facility] for eval of fever, pt was unable to give hx, no reported cough and no v/d (Per Dr. Mendenhall? pt has had a fever for a couple of days and has been taking keflex for 5 days BID with no improvement. staff stated pt has been lethargic and hasnt been drinking enough fluids (Per EMS in ED). Hospital Course Hospital Course: this wf was sent from [facility] for eval of fever, pt was unable to give hx, no reported cough and no v/d (Per Dr. Mendenhall? pt has had a fever for a couple of days and has been taking keflex for 5 days BID with no improvement. staff stated pt has been lethargic and hasnt been drinking enough fluids (Per EMS in ED). This morning she does report she is feeling better respirations easy even she denies any pain or needs at this time. WBC this a.m. 9.0, urine culture after 24 hours shows no growth, blood cultures x2 still pending. 03/09/ CXR: IMPRESSION: Dilatation/tortuosity of the thoracic aorta which may be better evaluated with CT otherwise negative. Dictated by: Osei, Will be D/C back to [facility] w/ [facility] 1gm IM x 5 days Objective Vital signs: Temp Pulse Resp BP Pulse Ox 99.8 F H 62 17 143/65 H 97 03/10/19 08:00 03/10/19 08:00 03/10/19 08:00 03/10/19 08:00 03/10/19 08:00 no acute distress - *Routine HEENT Exam Head: Present: normocephalic, atraumatic. Absent: scalp tenderness, tenderness of temporal artery Eye: Present: EOMI, PERRL, normal accommodation. Absent: conjunctival icterus, periorbital swelling ENT: Present: mucous membranes dry - *Routine Neck Exam Present: full ROM, trachea midline. Absent: JVD, tracheal deviation - *Routine Respiratory Exam Present: CTA bilaterally. Absent: accessory muscle use - *Routine Cardiovascular Exam Present: RRR - *Routine Abdominal Exam Present: soft, normoactive bowel sounds. Absent: tenderness, firm - *Routine Extremities Exam Present: full ROM, pulses intact. Absent: cyanosis, calf tenderness - Routine Back/Spine/Pelvis Exam Back/Spine: Present: full ROM. Absent: CVA tenderness - *Routine Skin Exam Present: intact, warm. Absent: cyanosis, jaundice - *Routine Neurological Exam Present: alert, CN II-XII intact. Absent: oriented X3, fasciculations - Routine Psychiatric Exam Present: normal affect. Absent: auditory hallucinations, visual hallucinations Results Labs on day of discharge: Preliminary micro results at discharge 03/09/19 01:35 Urine Culture - Preliminary Urine,Catheterized NO GROWTH AFTER 24 HOURS - Additional Comments Rounded with Dr. Mendenhall all orders per Dr. 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 (10) Muscle weakness (generalized) Status: Chronic Discharge Plan - Patient Discharge Instructions ACTIVITY: Continue current activity DIET: continue same diet Patient Instructions: Urinary Tract Infection, Schizophrenia, Hypothyroidism, DI for Urinary Tract Infection (UTI), DI for Schizophrenia, DI for Fever (Symptom) -- Adult, DI for Hypothyroidism - Follow up Plan Follow up with: Bryce Mendenhall MD [Primary Care Provider] - Disposition: [facility] Home Medications: Home Medications Medication Instructions Recorded Confirmed Type Acetaminophen 500 mg PO Q4HP PRN 04/22/17 03/09/19 History Lactulose [Lactulose 10gm/15ml 20 gm PO DAILYP PRN 04/22/17 03/09/19 History Oral Soln] Levothyroxine Sodium 75 mcg PO DAILY 04/22/17 03/09/19 History [Levothyroxine 50mcg (0.05mg) Tab] Loperamide HCl [Loperamide] 2 mg PO Q3HP PRN 04/22/17 03/09/19 History Sennosides/Docusate Sodium 2 each PO TID 03/24/18 03/09/19 History [Senna-S Tablet] Tramadol HCl [Tramadol 50mg 50 mg PO TID 03/24/18 03/09/19 History Tab] Docusate Sodium [Docusate Sod 250 mg PO BID 03/09/19 03/09/19 History Liquid 100mg/10mL udc] Mirtazapine [Remeron 15mg tablet] 15 mg PO HS 03/09/19 03/09/19 History Rivaroxaban [Xarelto 20mg Tablet*] 20 mg PO DAILY 03/09/19 03/09/19 History cephALEXin [Keflex 500mg Cap] 500 mg PO BID 03/09/19 03/09/19 History Ceftriaxone Sodium [Rocephin 1gm 1 gm IM DAILY 5 Days #5 vial 03/10/19 Rx vial] Prescriptions/Medication Reconciliation: New Ceftriaxone Sodium [Rocephin 1gm vial] 1 gm IM DAILY 5 Days #5 vial Continued Loperamide HCl [Loperamide] 2 mg PO Q3HP PRN PRN Reason: Diarrhea Lactulose [Lactulose 10gm/15ml Oral Soln] 20 gm PO DAILYP PRN PRN Reason: BOWEL CARE Acetaminophen 500 mg PO Q4HP PRN PRN Reason: As Needed For Fever Or Pain Tramadol HCl [Tramadol 50mg Tab] 50 mg PO TID Mirtazapine [Remeron 15mg tablet] 15 mg PO HS Docusate Sodium [Docusate Sod Liquid 100mg/10mL udc] 250 mg PO BID Levothyroxine Sodium [Levothyroxine 50mcg (0.05mg) Tab] 75 mcg PO DAILY Sennosides/Docusate Sodium [Senna-S Tablet] 2 each PO TID Rivaroxaban [Xarelto 20mg Tablet*] 20 mg PO DAILY Discontinued cephALEXin [Keflex 500mg Cap] 500 mg PO BID - Problem Reconciliation Problems Reviewed?: Yes
--- OUTSIDE RECORDS SUMMARY | 2019-03-10 14:15 | External Medical Summary | Continuity of Care Document ---
:1940 Author Organization [facility] Address [address] [place] [address] Phone Care Team Providers Name Role Phone Kennedy Attending Provider Ashley Mendenhall Primary Care Provider Ashley Mendenhall Attending Provider Allergies, Adverse Reactions, Alerts Allergen Type Severity Reaction Last Verified Status Updated erythromycin base Allergy Unknown Yes Ac tive Medications Medication Status Dose Units Route Sig Qty Days Start End Instruct ions Date Date Acetaminophen Active 500 MG Oral Every 4 March hours , 2018 needed 2:53pm Lactulose Active 20 GM Oral Daily March, 2017 2:53pm Levothyroxine Active 75 MCG Oral Daily March 2:53pm Loperamide Hcl Active 2 MG Oral Every 3 March hours , as 2017 needed 2:53pm Cephalexin Active 500 MG Oral Twice a February 1:41am Rivaroxaban Active 20 MG Oral Daily March 09, 2019 1:42am Mirtazapine Active 15 MG Oral At February bedtime , nightly 2018 4:25am Docusate Active 250 MG Oral Twice a February 4:26am Ceftriaxone Active 1 GM INTRAMUSC Daily 5 February 1:12pm Sennosides/Doc Active 2 EACH Oral Three February usa times 2017 7:57am Tramadol Hcl Active 50 MG Oral Three Zane times 2017 7:57am Problems Active Problems Medical Problem Onset Date Status UTI (urinary tract infection) Active Age-related osteoporosis without Active current pathological fracture Difficulty in walking, not elsewhere Act cirilo classified Dysarthria and anarthria Active Dementia without behavioral Active disturbance DVT of axillary vein, acute Active bilateral Fever Active Unspecified hearing loss, Active unspecified ear Essential (primary) hypertension Active Elevated erythrocyte sedimentation Activ e rate Hyperosmolality and hypernatremia Active Anemia, unspecified Active Dysphagia Active Hyperlipidemia, unspecified Active Hypernatremia Active Hypernatremia Active Hyponatremia Active Hypothyroidism, unspecified Active Muscle weakness (generalized) Active Mixed incontinence Active Delusional disorder Active Renal insufficiency Active Renal insufficiency Active Restless legs syndrome Active Paranoid schizophrenia Active Elevated INR Active Major depressive disorder, Active recurrent, moderate Dvt femoral (deep venous thrombosis) Act cirilo Low body mass index (BMI) Active Chronic obstructive pulmonary Active disease, unspecified Dysphagia, oropharyngeal phase Active Unspecified cataract Active Constipation, unspecified Active Acute febrile illness Active Arthropathy, unspecified Active Hyperchloremia Active Inactive/Resolved Problems Medical Problem Onset Date Status Urinary tract infection Resolved Sepsis due to Enterococcus Resolved Allergic rhinitis, unspecified Resolved Dehydration Resolved Procedures Procedure Date Performed Status XR chest AP March 09, 2019 completed Urine Culture March 09, 2019 active Blood Culture March 09, 2019 active Relevant Diagnostic Tests and/or Laboratory Data Laboratory Results Test Date/Time Result Interpretation Reference Result Perfo rming Range Comment Site White Blood Count February 10.8 4.8-10.8 [facility], [address] [place] [address] 2018 K/mm3 [facility] [address] 3:00pm White Blood Count February 9.0 K/mm3 4.8-10.8 [facility], [address] [place] [address] 2018 [place] [address] 4:10am Red Blood Count February 4.25 4.20-5.40 [facility], [address] [place] [address] 2018 M/mm3 [place] [address] 3:00pm Red Blood Count March 02.20 4.20-5.40 [facility], [address] [place] [address] 2018 M/[place]3 [place] [address] 4:10am Hemoglobin February 12.0 g/dL 12.2-16.2 [facility], [address] [place] [address] 2018 [place] HUNT [address] 3:00pm Hemoglobin Zane 12.0 g/dL 12.2-16.2 [facility], [address] [place] [address] 36 [address] 2018 [place] [address] 4:10am Hematocrit Zane 41.2 % 37.0-47.0 [facility], [address] [place] [address] 36 E 2018 [place] [address] 3:00pm Hematocrit Zane 39.1 % 37.0-47.0 [facility], [address] [place] [address] 36 E 2018 [place] [address] 4:10am Mean Corpuscular Zane 96.8 fl 81-99 [facility], [address] [place] [address] E Volume 2018 [place] [address] 3:00pm Mean Corpuscular Zane 93.3 fl 81-99 [facility], [address] [place] [address] E Volume 2018 [place] [address] 4:10am Mean Corpuscular Zane 28.3 pg 27.0-31.2 [facility], [address] [place] [address] 36 E Hemoglobin 2018 [place] [address] 3:00pm Mean Corpuscular Zane 28.5 pg 27.0-31.2 [facility], [address] [place] [address] 36 E Hemoglobin 2018 Cynshayy HUNT [address] 4:10am Mean Corpuscular Zane 29.3 g/dL 31.8-35.4 [facility], [address] [place] [address] 36 E Hemoglobin 2018 [place] [address] Concent 3:00pm Mean Corpuscular Zane 30.6 g/dL 31.8-35.4 [facility], [address] [place] [address] 36 E Hemoglobin 2018 Cynshayy HUNT [address] Concent 4:10am Red Cell Zane 13.2 % 11.5-17.5 [facility], [address] [place] [address] 36 E Distribution 2018 On[place] H[place]T [address] Width 3:00pm Red Cell Zane 13.2 % 11.5-17.5 [facility], [address] [place] [address] 36 E Distribution 2018 Mary HUNT [address] Width 4:10am Platelet Count February 233 K/mm3 142-424 [facility], [address] [place] [address] 36 [address] 2018 [place] [address] 3:00pm Platelet Count February 240 K/mm3 142-424 [facility], [address] [place] [address] E 2018 [place] [address] 4:10am Mean Platelet February 8.9 fl 7.4-10.4 [facility], [address] [place] [address] E Volume 2018 [place] [address] 3:00pm Mean Platelet February 9.6 fl 7.4-10.4 [facility], [address] [place] [address] E Volume 2018 [place] [address] 4:10am Neutrophils (%) February 87.6 % 37.0-80.0 [facility], [address] [place] [address] E (Auto) 2018 [place] [address] 3:00pm Neutrophils (%) February 54.4 % 37.0-80.0 [facility], [address] [place] [address] E (Auto) 2018 [place] [address] 4:10am Lymphocytes (%) February 7.9 % -50 [facility], [address] [place] [address] E (Auto) 2018 [place] [address] 3:00pm Lymphocytes (%) February 40.9 % -50 [facility], [address] [place] [address] E (Auto) 2018 [place] [address] 4:10am Monocytes (%) February 4.1 % 1.7-9.3 [facility], [address] [place] [address] E (Auto) 2018 [place] [address] 3:00pm Monocytes (%) February 3.9 % 1.7-9.3 [facility], [address] [place] [address] E (Auto) 2018 [place] [address] 4:10am Eosinophils (%) Zane 0.2 % 0.1-12.0 [facility], [address] [place] [address] E (Auto) 2018 [place] [address] 3:00pm Eosinophils (%) Zane 0.3 % 0.1-12.0 [facility], [address] [place] [address] E (Auto) 2018 [place] [address] 4:10am Basophils (%) Zane 0.2 % 0.1-2.0 [facility], [address] [place] [address] 36 E (Auto) 2018 [place] [address] 3:00pm Basophils (%) Zane 0.5 % 0.1-2.0 [place] [facility], [address] [place] [address] 36 E (Auto) 2018 [place] [address] 4:10am Neutrophils # Zane 9.5 K/mm3 1.8-7.8 [facility], [address] [place] [address] 36 E (Auto) 2018 [place] [address] 3:00pm Neutrophils # Zane 4.9 K/mm3 1.8-7.8 [facility], [address] [place] [address] 36 E (Auto) 2018 [place] [address] 4:10am Lymphocytes # Zane 0.9 K/mm3 0.7-4.5 [facility], [address] [place] [address] E (Auto) 2018 [place] [address] 3:00pm Lymphocytes # Zane 3.7 K/mm3 0.7-4.5 [facility], [address] [place] [address] 36 E (Auto) 2018 [place] [address] 4:10am Monocytes # Zane 0.5 K/mm3 0.1-1.0 [facility], [address] [place] [address] 36 E (Auto) 2018 [place] [address] 3:00pm Monocytes # Zane 0.4 K/mm3 0.1-1.0 [facility], [address] [place] [address] 36 E (Auto) 2018 [place] [address] 4:10am Eosinophils # Zane 0.0 K/mm3 0.0-0.4 [facility], [address] [place] [address] 36 E (Auto) 2018 [place] [address] 3:00pm Eosinophils # Zane 0.0 K/mm3 0.0-0.4 [facility], [address] [place] [address] 36 E (Auto) 2018 [place] [address] 4:10am Basophils # Zane 0.0 K/mm3 0-0.2 [facility], [address] [place] [address] 36 E (Auto) 2018 [place] [address] 3:00pm Basophils # Zane 0.1 K/mm3 0-0.2 [facility], [address] [place] [address] E (Auto) 2018 Jar[place] HUNT [address] 4:10am Differential Zane 100 [facility], [address] [place] [address] 36 E Total Cells 2018 Arelishayy pineda [place] [address] Counted 3:00pm Neutrophils % Zane 90 % 42-76 [facility], [address] [place] [address] 36 E (Manual) 2018 Jar[place] HUNT [address] 3:00pm Lymphocytes % Zane 8 % 10-50 [facility], [address] [place] [address] 36 E (Manual) 2018 Jarrett HUNT [address]74 3:00pm Monocytes % Zane 2 % 2-9 [facility], [address] [place] [address] 36 E (Manual) 2018 Jar[place] HUNT [address] 3:00pm Platelet Estimate Zane Normal [facility], [address] [place] [address] 36 E 2018 Jar[place] HUNT [address] 3:00pm Red Blood Cell Zane Normal [facility], [address] [place] [address] 36 E Morphology 2018 [place] HUNT [address] 3:00pm Erythrocyte Zane 97 mm/hr 0-30 [facility], [address] [place] [address] 36 E Sedimentation 2018 Jessie HUNT [address] Rate 1:00am Urine Color Zane Dark Yellow [facility], [address] [place] [address] 36 E 2018 yellow [place] HUNT [address] 1:35am Urine Appearance Zane Cloudy Clear [facility], [address] [place] [address] 36 E 2018 [place] HUNT [address] 1:35am Urine pH Zane 5.5 5.0-8.5 [facility], [address] [place] [address] 36 E 2018 [place] HUNT [address] 1:35am Urine Specific Zane >= 1.030 1.005-1.03 [facility], [address] [place] [address] 36 E [place] 2018 0 Jarrett HUNT [address] 1:35am Urine Protein Zane 2+ Negative [facility], [address] [place] [address] 36 E 2018 Jar[place] HUNT [address] 1:35am Urine Glucose Zane Negative Negative [facility], [address] [place] [address] 36 E (UA) 2018 Jar[place] HUNT 41572 1:35am Urine Ketones Zane Negative Negative [facility], [address] [place] [address] 36 E 2018 Jar[place] HUNT [address]89[address] 1:35am Urine Blood Zane 3+ Negative [facility], [address] [place] [address] 36 E 2018 [place] [address] 1:35am Urine Nitrate Zane Negative Negative [facility], [address] [place] [address] 36 E 2018 [place] [address] 1:35am Urine Bilirubin Zane Negative Negative CONFIRM [facility], [address] [place] [address] 36 E 2018 BILIRUBIN Jarrett HUNT 67263 1:35am RESULT WITH ICTOTEST:NEG Urine Zane 0.2 EU/dl [facility], [address] [place] [address] 36 E Urobilinogen 2018 Cynbayron kaela [place] [address] 1:35am Urine Leukocyte Zane Trace Negative [facility], [address] [place] [address] E Esterase 2018 [place] [address] 1:35am Urine RBC February Tntc # [facility], [address] [place] [address] 36 E 2018 /hpf [place] HUNT 91603 1:35am Urine WBC March 03- [facility], [address] [place] [address] 36 E 2018 #/hpf [place] HUNT 29317 1:35am Urine Bacteria February 1+ /lpf None [facility], [address] [place] [address] 36 E 2018 Jarrett HUNT 20165 1:35am Troponin I February 0.03 0.00-0.06 *ALERT* High [facility], [address] [place] [address] 36 E 2018 ng/ml levels of Jar[place] HUNT 95423 7:45am Biotin can falsely depress Troponin results.Many dietary supplements promoted for hair,skin, and nail benefits contain biotin levels up to 650 times the recommended daily intake of biotin. In additon to dietary supplements, Biotin is occasionally prescribed for medical conditions. Sodium Level January 144 136-145 [facility], [address] [place] [address] 36 E 2018 mmol/L Jarrett HUNT 28098 7:45pm Sodium Level February 159 136-145 [facility], [address] [place] [address] 36 E 2018 mmol/L CRITICAL [place] HUNT 93418 7:45am RESULT Results called to: ROXANNAEMPLIN by Adelita Orellana 0804 on 03/09/19 Potassium Level January 4.5 3.5-5.1 [facility], [address] [place] [address] 36 E 2018 mmoL/[place] [address] 7:45pm Potassium Level February 3.7 3.5-5.1 [facility], [address] [place] [address] 36 E 2018 mmoL/[place] [address] 7:45am Chloride Level January 109 98-107 [facility], [address] [place] [address] 36 E 2018 mmol/[place] [address] 7:45pm Chloride Level February 123 98-107 [facility], [address] [place] [address] 36 E 2018 mmol/[place] [address] 7:45am Carbon Dioxide January 26 mmol/L 21.0-32.0 [facility], [address] [place] [address] E Level 2018 [place] [address] 7:45pm Carbon Dioxide February 27 mmol/L 21.0-32.0 [facility], [address] [place] [address] E Level 2018 [place] [address] 7:45am Anion Gap January 13.5 08-11 [facility], [address] [place] [address] 36 E 2018 mEq/L [place] H[place]T 21535 7:45pm Anion Gap February 12.7 08-11 [facility], [address] [place] [address] 36 E 2018 mEq/L [place] HUNT 14471 7:45am Blood Urea January 20 mg/dL 10-14 [facility], [address] [place] [address] 36 E Nitrogen 2018 [place] [address] 7:45pm Blood Urea February 27 mg/dL 10-14 [facility], [address] [place] [address] 36 E Nitrogen 2018 [place] [address] 7:45am Creatinine January 0.90 0.55-1.02 [facility], [address] [place] [address] 36 E 2018 mg/[place] [address] 7:45pm Creatinine February 1.05 0.55-1.02 [facility], [address] [place] [address] 36 E 2018 mg/dL [place] HUNT 82229 7:45am Estimated Zane 35 mL/min 0-300 [facility], [address] [place] [address] 36 E Creatinine 2018 Maryada HUNT 267[address] Clearance 7:45am Estimated GFR January 73 ML/MIN >59 [facility], [address] [place] [address] 36 E ( 2018 [place] HUNT [address] Macedonian) 7:45pm Estimated GFR February 61 ML/MIN >59 [facility], [address] [place] [address] 36 E ( 2018 [place] [address] Macedonian) 7:45am Estimat January 61 ml/min >59 [facility], [address] [place] [address] 36 E Glomerular 2018 Maryada HUNT 41426 Filtration Rate 7:45pm Estimat February 51 ml/min >59 [facility], [address] [place] [address] 36 E Glomerular 2018 Maryada HUNT 04239 Filtration Rate 7:45am Glucose Level January 89 mg/dL 74-106 [facility], [address] [place] [address] 36 E 2018 [place] [address] 7:45pm Glucose Level February 104 mg/dL 74-106 [facility], [address] [place] [address] 36 E 2018 [place] [address] 7:45am Lactate February 0.8 0.4-2.0 [facility], [address] [place] [address] 36 E 2018 mmol/L [place] [address]6101 1:00am Calcium Level January 8.5 mg/dL 8.5-10.1 [facility], [address] [place] [address] 36 E 2018 [place] [address] 7:45pm Calcium Level February 8.3 mg/dL 8.5-10.1 [facility], [address] [place] [address] 36 E 2018 [place] [address] 7:45am Magnesium Level February 2.2 mg/dL 1.4-2.2 [facility], [address] [place] [address] 36 E 2018 [place] 26455 4:10am Total Bilirubin January 0.2 mg/dL 0.2-1.0 [facility], [address] [place] [address] 36 E 2018 [place] 28628 7:45pm Aspartate Amino November 19 U/L 15-37 [facility], [address] [place] [address] 36 E Transf (AST/SGOT) 2018 [place] [address] 7:45pm Alanine January 17 U/L 12-78 [facility], [address] [place] [address] 36 E Aminotransferase 2018 [place] [address] (ALT/SGPT) 7:45pm C-Reactive Zane 2.3 mg/dL 0.0-0.9 [facility], [address] [place] [address] 36 E Protein 2018 [place] [address] 1:00am Total Protein January 6.6 gm/dL 6.4-8.2 [facility], [address] [place] [address] 36 E 2018 [place] [address] 7:45pm Albumin November 3.1 gm/dL 3.4-5.0 [facility], [address] [place] [address] 36 E 2018 [place] [address] 7:45pm Globulin January 3.5 gm/dl 1.3-3.2 [facility], [address] [place] [address] 36 E 2018 [place] [address] 7:45pm Albumin/Globulin January 0.9 1.1-1.8 [facility], [address] [place] [address] 36 E Ratio 2018 [place] [address] 7:45pm Alkaline January 72 U/L 46-116 [facility], [address] [place] [address] 36 E Phosphatase [place] [address] 7:45pm Influenza Type A Zane Negative Negative [facility], [address] [place] [address] 36 E Antigen 2018 [place] [address] 3:30pm Influenza Type B Zane Negative Negative [facility], [address] [place] [address] 36 E Antigen 2018 [place] [address] 3:30pm Diagnostic Imaging Reports Report Dictated Date/Time Dictated By Status Radiology Report March 09, 2019 Km Franz MD completed 1:36am [address] [place] [address] XRay R eport Sig edenilson Patient: Juliann Hart MR#: [id number] : 1940 Acct:[id number] Age/Sex: 78 / F ADM Date: 9 Loc: 2ND 212I-[address]: Bryce Mendenhall MD Ordering Physician: Bryce Mendenhall MD Date of Service: 03/09/19 Procedure(s): XR chest AP Accession Number(s): [id number] cc: Km Franz MD; Bryce Mendenhall MD~ PROCEDURE: XR CHEST AP CLINICAL HISTORY: fever COMPARISON: CXR1 CHEST-PORTABLE from 12/05/2016 CXR1VP XR chest portable from 8 CXR1VP XR chest portable from 8 FINDINGS: There is moderate patient rotation. Th ere is tortuosity/dilatation of the thoracic aorta. This may be sli ghtly greater compared to the previous study somewhat difficult to ev aluate secondary to the rotation. Chest CT may be of further v alue. The lungs are clear without infiltrates , suspicious nodules, or pleural effusions. No acute bony abnormalities. IMPRESSION: Dilatation/tortuosity of the thoracic a thomas which may be better evaluated with CT otherwise negative. Dictated by: Km Franz MD 03/09/2019 04:55 Electronically signed by Km Franz in OV 03/09/2019 04:55 Advance Directives Advance Directive Response Recorded Date/Time Living Will No March 09, 2019 4:04am Chief Complaint and Reason for Visit Chief Complaint Monthly Check-up DETENTION DROP OFF Yearly H&P DETENTION DROP OFF Acute Febrile Illness Reason for Visit Acute febrile illness Dysphagia Elevated erythrocyte sedimen tation rate Fever Hypernatremia Hyponatremia UTI (urinary tract infection ) Hypothyroidism, unspecified Low body mass index (BMI) Paranoid schizophrenia Renal insufficiency Encounters Encounter Location(s) Arrival/Admit Date Discharge/Depart Date Provider(s) Registered [facility] Physician January 11, 2019 Dominick Benavides Inpatient Group-Nursing 11:59pm , CAB SUPER[employer]OR [facility] Registered [facility] Physician February 09, Bryce Ramirez Clinical Group-Lab Drop 2018 7:44pm MD Abdirashid Off to [facility] Registered [facility] Physician February 15, Bryce Ramirez Inpatient Group-Nursing 2018 11:59pm MD Abdirashid [facility] Registered [facility] Physician March 04, 2019 Bryce Ramirez Clinical Group-Lab Drop 3:37pm MD Abdirashid Off to [facility] Admitted [facility] Physician March 09 Bryce Ramirez Inpatient Group-Second 2018 3:40am MD Abdirashid Floor Registered [facility] Physician March 10 Bryce Ramirez Inpatient Group- 2018 2:11pm MD Abdirashid Recent Diagnosis Onset Date Acute febrile illness Dysphagia Elevated erythrocyte sedimentation rate Fever Hypernatremia Hyponatremia UTI (urinary tract infection) Hypothyroidism, unspecified Low body mass index (BMI) Paranoid schizophrenia Renal insufficiency Assessments See care plan goals Functional Status Observation Response Date Recorded Oral Care Ability Dependent/Unable March 09, 2019 4:04am Bathing Ability Total Dependance March 09, 2019 9:06pm Eating (Feeding) Ability Unable/Dependant March 09, 2019 4:04am Toileting Ability Standby Assistance March 09, 2019 4:04am Ambulation Ability Total Dependance March 09, 2019 4:04am Functional status high risk for fracture January 11 9 7:26pm Oral Care Ability With Assistance January 11, 2019 7 :26pm Bathing Ability Assistance x1 January 11, 2019 7 :26pm Eating (Feeding) Ability Standby Assistance January 11 019 7:26pm Toileting Ability Assistance X2 January 11, 2019 7 :26pm Ambulation Ability Assistance x1 January 11, 2019 7 :26pm Goals Acute Goals Nursing Diagnosis: Knowledge Deficit D isease/Condition Goal(s): Education of di sease process Instruction(s): Follow provider p daly/instructions (See attached discharge education) Follow/up with primary care provider as instructed in discharge packet Immunizations Immunization Event Date Not Given Dose Dog Hair Clipper Lot Vac cine Reason Number Number Informatio n Statement (VIS) Deta il Pneumococcal January Polysacc. 2006 Vaccine, 23 valent Mental Status Observation Response Date Recorded Comprehension Ability No Impairment March 10 9 1:00pm Able to Read No March 09, 2019 4:04am Able to Write No March 09, 2019 4:04am Ability to Follow Directions Poor March 092018 4:04am Eye Contact No Eye Contact March 09, 2019 4:04am Oral Expression Ability Unable to Comprehend March 09, 2019 4:04am Communication Issues Non Verbal March 09, 2019 4:04am Medical Equipment No Medical Equipment Information available Insurance Providers Guarantor Juliann Hart Address [address] [address] Contact Info. Home Phone: Payer Policy Id Coverage Id Subscriber's Subscriber Effective Expi ration Name Id Date Date [facility] [id number] Juliann Hart [id number] howie Adams Medicaid [id number] Juliann Hart [id number] Medicare [id number] Juliann Hart [id number] Medicare B [id number] Juliann Hart [id number] Self Pay Self N/A Plan of Treatment Follow up as ordered by PCP Future Tests Future scheduled test information is unavailable Pending Tests Pending diagnostic test information is unavailable Future Visits Future appointment information is unavailable Referrals to Other Providers Reason for Referral Start Provider Provider Contact Provider Address Referral Date Information Admission to [facility] March [address] Future Procedures Future procedure information is unavailable Future Medications Future medication information is unavailable Patient Instructions Urinary Incontinence -- Female Osteoporosis Kidney Failure High Triglycerides Hearing Loss Deep Vein Thrombosis Dementia Chronic Obstructive Pulmonary Disease Constipation Cataract Cataract Removal Restless Legs Syndrome Heart-Healthy Diet Balanced Diet Fat-Restricted Diet Effectiveness of Diets for Weight Loss How to Count Respirations Respiratory Failure Urinary Tract Infection Schizophrenia Hypothyroidism DI for Urinary Tract Infection (UTI) DI for Schizophrenia DI for Fever (Symptom) -- Adult DI for Hypothyroidism Social History Observation Status Date of Observation Not March 09, 2019 Assigned Sex Female Vital Signs Vital Reading Result Reference Range Collection Date/ Time Body Temperature 97.6 [degF] 97.6-99.6 January 11 019 7:12pm Heart Rate 66 /min 60-90 January 11 7:12pm Respiratory rate 18 /min -January 11 019 7:12pm Oxygen saturation by 98 % 95-100 December Pulse oximetry 7:12pm BP Systolic 98 mm[Hg] 110-140 January 11 7:12pm BP Diastolic 65 mm[Hg] 60-90 January 11 7:12pm Height 157 cm March 10, 2 019 5:03am Weight 50.43 kg March 10 2 019 5:03am Body Temperature 98.4 [degF] 97.6-99.6 March 10, 2019 12:00pm Heart Rate 64 /min 60-March 10 019 12:00pm Respiratory rate 28 /min -March 10, 2019 12:00pm Oxygen saturation by 96 % 95-100 March 102018 Pulse oximetry 12:00pm BP Systolic 157 mm[Hg] 110-140 March 10, 12:00pm BP Diastolic 63 mm[Hg] 60-90 March 10, 019 12:00pm BMI (Body Mass Index) 20.5 kg/m2 February 272018 5:03am
== END 2019-03-10 16:45 ==
LOC: 2ND 00:48 → ER 00:48 → 2ND 03:42
PROVIDERS: ADMIT Emergency Medicine; ATTEND Emergency Medicine
CPT/HCPCS: 36415; 71010; 71045; 80048; 81001; 83605; 83735; 84484; 85025; 85651; 86140; 87040; 87086; 96365; 96366; 99284; G0378; J1335

== ENCOUNTER 2019-06-22 09:47 | Inpatient (IN) ==
[2019-06-22 10:17] LABS: Appearance,Urine SL CLOUDY (Clear); Blood, Urine 3+ (Negative); Color,Urine BROWN (Yellow); Glucose,Urine (UA) TRACE (Negative); Ketones,Urine 1+ (Negative); Leukocyte Esterase,Urine 2+ (Negative); Protein,Urine 3+ (Negative)
[2019-06-22 10:18] LABS: Microscopic, Urine URINE MICROSCOPIC (MICROSCOPIC)
[2019-06-22 10:21] LABS: Bilirubin,Urine Negative (Negative)
[2019-06-22 10:29] LABS: Bacteria,Urine 4+ /lpf; Mucus,Urine 4+ /lpf; RBC,Urine TNTC #/hpf (0-3); WBC,Urine 20-50 #/hpf (0-3)
--- NOTE | 2019-06-22 10:58 | Emergency Department Note ---
ED Disposition Clinical Impression: Sepsis, UTI (urinary tract infection) Disposition: Admitted as Observation Condition on Discharge: Good Instructions: DI for Altered Mental Status Additional Instructions: Spoke to Dr. Mendenhall's office for admission for this patient. Referrals: Bryce Mendenhall MD [Primary Care Provider] - - Critical Care Critical Care Time: No Attestation: On 06/22/19, the high probability of a clinically significant, sudden or life threatening deterioration of the following system(s) required my full and direct attention, intervention and personal management. The time I documented below is in addition to time spent performing reported procedures but includes the following listed in this critical care notation. Medical Decision Making - Medical Records Medical records reviewed: Yes: I reviewed the patient's medical records. - Brandt Inquiry Pt receiving controlled substance: No Vital Signs: 06/22/19 09:47 06/22/19 11:56 06/22/19 12:11 Temperature 104.7 F H Temperature Source Rectal Pulse Rate [Left Radial] 124 H 102 H 101 H Respiratory Rate 18 20 20 Blood Pressure [Right Arm] 83/59 L 114/74 100/71 L Blood Pressure Mean [Right Arm] 67 87 80 Blood Pressure Source [Right Arm] Automatic Cuff Blood Pressure Position [Right Arm] Sitting Supine 02 Sat by Pulse Oximetry 98 100 100 Oxygen Delivery Method Nasal Cannula Nasal Cannula Nasal Cannula Oxygen Flow Rate (LPM) 2 2 2 06/22/19 12:26 06/22/19 12:41 Temperature Temperature Source Pulse Rate [Left Radial] 100 H 101 H Respiratory Rate 22 18 Blood Pressure [Right Arm] 111/68 106/75 L Blood Pressure Mean [Right Arm] 82 85 Blood Pressure Source [Right Arm] Automatic Cuff Automatic Cuff Blood Pressure Position [Right Arm] Supine Supine 02 Sat by Pulse Oximetry 92 L Oxygen Delivery Method Nasal Cannula Nasal Cannula Oxygen Flow Rate (LPM) 2 2 - Lab Data Lab results reviewed: Yes: I reviewed the patient's lab results. Lab Results 06/22/19 10:08: Urine Color Brown, Urine Appearance Sl cloudy, Urine pH 8.0, Ur Specific [place] 1.020, Urine Protein 3+, Urine Glucose (UA) Trace, Urine Ketone s 1+, Urine Blood 3+, Urine Nitrate Positive, Urine Bilirubin Negative, Urine Urobilinogen 1.0, Ur Leukocyte Esterase 2+ A, Urine RBC Tntc, Urine WBC 20-50, Ur Squamous Epith Cells 5-10, Urine Bacteria 4+, Urine Mucus 4+ 06/22/19 12:15: WBC 18.4 H, RBC 5.82 H, Hgb 16.0, Hct 54.9 H, MCV 94.3, MCH 27. 5, MCHC 29.2 L, RDW 15.2, Plt Count 101 L, MPV 14.4 H, Neut % (Auto) 80.7 H, Lymph % (Auto) 16.8, [place] % (Auto) 2.0, Eos % (Auto) 0.2, Baso % (Auto) 0.4, Neut # (Auto) 14.9 H, Lymph # (Auto) 3.1, [place] # (Auto) 0.4, Eos # (Auto) 0.0, Baso # (Auto) 0.1, Total Counted 100, Neutrophils % (Manual) 79 H, Lymphocytes % (Manual) 19, Monocytes % (Manual) 2, Nucleated RBCs 2, Platelet Estimate Marked decrease, Hypochromasia 1+ 06/22/19 12:15: Sodium 168 H*, Potassium 4.9, Chloride 131 H, Carbon Dioxide 21 L, Anion Gap 20.9 H, BUN 98 H, Creatinine 3.70 H, Estimated Creat Clear 8, Estimated GFR 12 L*, Est GFR ( Amer) 14 L*, Glucose 127 H, Calcium 9.8, Total Bilirubin 0.7, AST 406 H*, ALT 178 H, Alkaline Phosphatase 57, Total Protein 7.4, Albumin 4.1, Globulin 3.3 H, Albumin/Globulin Ratio 1.2 06/22/19 12:15: Lactate 6.7 H Result diagrams: 06/22/19 12:15 06/22/19 12:15 Orders (Tests/Meds): ED MEDICATIONS Discontinued Medications Generic Name Dose Route Start Last Admin Trade Name Freq PRN Reason Stop Dose Admin Sodium Chloride 1,000 mls @ 999 mls/hr 06/22/19 10:30 Sod Chlor 0.9% 1000ml Bag IV 06/22/19 11:30 .Q1H1M FRANDY ORDERS Category Date Time Status Blood Culture Stat Micro 06/22/19 12:15 Ordered Urine Culture Stat Micro 06/22/19 10:08 Received - Tissue Perfus/Sepsis Re-Eval Sepsis Re-Evaluation Performed: Yes Date Performed: 06/22/19 Time Performed: 13:08 General Adult HPI - General Chief complaint: Altered Mental Status Stated complaint: failure to thrive Time Seen by Provider: 06/22/19 10:30 Mode of Arrival: EMS Source of Information: EMS Limitations: Physical Limitations Description of Symptoms (Recalled from ER Triage Doc. by RN): to ed per squad pt resident of [facility] reports pt not eating or drinking x 2 weeks states pt is usually responsive and verbal. pt unresponsive resp even and easy. feet and lower legs mottled - History of Present Illness HPI narrative: 78-year-old female presents to the ED with fever and a history of not eating or tolerating any liquids for the past couple of weeks. Patient is a DNR. Unknown if she has had any nausea or vomiting unknown if she has any pain patient does not really localize pain very well no other history really was obtained only history from EMS [facility] gave a vague report. - Related Data Home Medications Medication Instructions Recorded Confirmed Acetaminophen 500 mg PO Q4HP PRN 04/22/17 06/13/19 Lactulose [Lactulose 10gm/15ml 20 gm PO DAILYP PRN 04/22/17 06/13/19 Oral Soln] Levothyroxine Sodium 75 mcg PO DAILY 04/22/17 06/13/19 [Levothyroxine 50mcg (0.05mg) Tab] Loperamide HCl [Loperamide] 2 mg PO Q3HP PRN 04/22/17 06/13/19 Sennosides/Docusate Sodium 2 each PO TID 03/24/18 06/13/19 [Senna-S Tablet] Tramadol HCl [Tramadol 50mg 50 mg PO TID 03/24/18 06/13/19 Tab] Docusate Sodium [Docusate Sod 250 mg PO BID 03/09/19 06/13/19 Liquid 100mg/10mL udc] Mirtazapine [Remeron 15mg tablet] 15 mg PO HS 03/09/19 06/13/19 Rivaroxaban [Xarelto 20mg Tablet*] 20 mg PO DAILY 03/09/19 06/13/19 Omeprazole 20 mg PO DAILY 05/09/19 06/13/19 Previous Rx's Medication Instructions Recorded Ceftriaxone Sodium [Rocephin 1gm 1 gm IM Q24H #7 vial 05/09/19 vial] Allergies Allergy/AdvReac Type Severity Reaction Status Date / Time erythromycin base Allergy Unknown Verified 06/13/19 12:47 [From ERYTHROCIN] [facility] History - Hepatitis A Screen Drug use history?: No High risk sexual behaviors?: No History of sexually transmitted infection?: No Currently employed?: No Childcare worker?: No Do you have indoor plumbing?: Yes Do you have electricity?: Yes Attestation statement:: This patient has been screened for Hepatitis A risk factors. I have reviewed the patient's past medical history: Yes Medical History: Reports:: Chronic Obstructive Pulmonary Disease (COPD), Deep Vein Thrombosis, Depression, Hyperlipidemia, Hypertension, Kidney Stones, Osteoporosis, Urinary Tract Infection Denies:: Cancer, Diabetes Mellitus Type 1, Diabetes Mellitus Type 2, Internal Pacemaker, MRSA Other Medical History: Reports: Anemia, Cataracts, Hypothyroidism, Osteoporosis, Thyroid Disease Comment: paranoid,schizophrenia,difficulty walking,dysphasia,delusional disorder Other Surgeries: Yes: Cardiac Catheterization. No: Pacemaker. Comment Only: No Previous Surgery (UNKNOWN IF PT HAS HAD ANY SURGERIES) Amputation: No Fractures: No - Social History Smoking Status: Current some day smoker Alcohol Intake: never Occupational Status: other Housing: [facility] Household Members: other - Psychiatric History Pschychiatric History:: Reports:: Depression Family Hx:: Unable to obtain ROS Obtained: Yes All systems reviewed & no additional complaints - Constitutional Constitutional: Reports system reviewed and no additional complaints, except as docu - Eyes Eyes: Reports system reviewed and no additional complaints, except as docu - ENT Ears, Nose, Mouth, and Throat: Reports system reviewed and no additional complaints, except as docu - Cardiovascular Cardiovascular: Reports system reviewed and no additional complaints, except as docu - Respiratory Respiratory: Yes system reviewed and no additional complaints, except as docu - Gastrointestinal Gastrointestingal: Reports: system reviewed and no additional complaints, except as docu - Genitourinary Male Genitourinary: Reports system reviewed and no additional complaints, except as docu Female Genitourinary: Reports system reviewed and no additional complaints, except as docu - Musculoskeletal Musculoskeletal: Reports system reviewed and no additional complaints, except as docu - Integumentary/Breasts Skin/Breast: Reports system reviewed and no additional complaints, except as docu - Neurologic Neurologic: Reports system reviewed and no additional complaints, except as docu - Endocrine Endocrine: Reports system reviewed and no additional complaints, except as docu - Hematologic/Lymphatic Henatologic/Lymphatic: Reports system reviewed and no additional complaints, except as docu - Allergic/Immunologic Allergic/Immunologic: Reports system reviewed and no additional complaints, except as docu Physical Exam - General General appearance: alert, in no apparent distress - Head Head exam: atraumatic, normocephalic - Eye Eye exam: Present: normal appearance - ENT ENT exam: Present: normal exam - Neck Neck exam: Present: normal inspection - Chest Chest inspection: Present: normal inspection - Respiratory Respiratory exam: Present: normal lung sounds bilaterally - Cardiovascular Cardiovascular exam: Present: regular rate - Abdominal Exam Abdominal exam: Present: soft - Extremities Exam Extremities exam: Present: normal inspection - Back Exam Back exam: Present: normal inspection - Neurological Exam Neurological exam: Present: alert - Psychiatric Psychiatric exam: Present: normal affect - Skin Skin exam: Present: warm - Lymphatic Lymphatic Findings: no adenopathy
[2019-06-22 12:32] LABS: Basophils # 0.1 K/mm3 (0-0.2); Basophils % 0.4 % (0.1-2.0); Eosinophils % 0.2 % (0.1-12.0); Hematocrit 54.9 % (37.0-47.0); Lymphocytes # 3.1 K/mm3 (0.7-4.5); Lymphocytes % 16.8 % (10-50); Mean Corpuscular HGB Conc 29.2 g/dL (31.8-35.4); Mean Corpuscular Volume 94.3 fl (81-99); Mean Platelet Volume 14.4 fl (7.4-10.4); Monocytes # 0.4 K/mm3 (0.1-1.0); Neutrophils # 14.9 K/mm3 (1.8-7.8); Neutrophils % 80.7 % (37.0-80.0); Platelet Count 101 K/mm3 (142-424); Red Blood Count 5.82 M/mm3 (4.20-5.40); Red Cell Distribution Width 15.2 % (11.5-17.5); White Blood Count 18.4 K/mm3 (4.8-10.8)
[2019-06-22 12:34] LABS: Albumin Level 4.1 g/dl (3.5-5.0); Albumin/Globulin Ratio 1.2 (1.1-1.8); Anion Gap 20.9 mEq/L (5-15); Bilirubin,Total 0.7 mg/dl (0.2-1.3); Calcium 9.8 mg/dl (8.4-10.2); Globulin 3.3 g/dL (1.3-3.2); Total Protein,Serum 7.4 g/dl (6.3-8.2)
[2019-06-22 12:42] LABS: Lymphocytes % 19 % (10-50); Monocytes % 2 % (2-9); Neutrophils % 79 % (42-76); Nucleated Red Blood Cells 2; Total Cells Counted 100
[2019-06-22 12:43] LABS: Hypochromasia 1+
--- NOTE | 2019-06-22 15:49 | Pharmacy Consult Notes ---
[facility] Pharmacy VTE Monitoring - Patient Demographics Admission date: 06/22/19 Report Date: 06/22/19 Time: 15:48 Allergies/Adverse Reactions: Patient Allergies erythromycin base [From ERYTHROCIN] Allergy (Unknown, Verified 06/13/19 12:47) Height: 1.52 m Weight: 41.759 kg Patient Problems: Current Active Problems UTI (urinary tract infection) (Acute) Sepsis (Acute) - VTE Risk Labs: VTE Related Lab Results Hgb 16.0 g/dL (12.2-16.2) 06/22/19 12:15 Hct 54.9 % (37.0-47.0) H 06/22/19 12:15 Plt Count 101 K/mm3 (142-424) L 06/22/19 12:15 BUN 98 mg/dl (7-17) H 06/22/19 12:15 Creatinine 3.70 mg/dl (0.52-1.04) H 06/22/19 12:15 Estimated Creat Clear 8 mL/min (50-200) 06/22/19 12:15 - Prophylaxis VTE Prophylaxis Ordered?: Yes Types of VTE Prophylaxis: TEDS Knee High Location of Applied Device: Bilateral Lower Extremeties
--- NOTE | 2019-06-22 21:25 | History & Physical Report ---
*Admission Date: 06/22/19 *Chief complaint: altered mental status *History of present illness: this pt was sent from [facility] with dec po intake and change in mental status - ed per squad pt resident of [place] reports pt not eating or drinking x 2 weeks states pt is usually responsive and verbal. pt unresponsive resp even and easy. feet and lower legs mottled 78-year-old female presents to the ED with fever and a history of not eating or tolerating any liquids for the past couple of weeks. Patient is a DNR. Unknown if she has had any nausea or vomiting unknown if she has any pain patient does not really localize pain very well no other history really was obtained only history from EMS [facility] pt was seen in the ed and was found to have uti with sepsis and with organ dysfunction and septic shock and was admitted with ivf and abx with fluid bolus [place] History I have reviewed the patient's past medical history: Yes Medical History: Reports:: Chronic Obstructive Pulmonary Disease (COPD), Deep Vein Thrombosis, Depression, Hyperlipidemia, Hypertension, Kidney Stones, Osteoporosis, Urinary Tract Infection Denies:: Cancer, Diabetes Mellitus Type 1, Diabetes Mellitus Type 2, Internal Pacemaker, MRSA *Have you ever received a pneumonia vaccine?: Yes *Have you received a flu vaccine this season?: Yes Other Medical History: Reports: Anemia, Cataracts, Hypothyroidism, Osteoporosis, Thyroid Disease Other Surgeries: Yes: Cardiac Catheterization. No: Pacemaker. Comment Only: No Previous Surgery (UNKNOWN IF PT HAS HAD ANY SURGERIES) Amputation: No Fractures: No - *Social History Smoking Status: Unknown if ever smoked Alcohol Intake: never *Occupational Status:: other Housing: [facility] Household Members: other *Travel in the last 8 weeks: None - Psychiatric History Pschychiatric History:: Reports:: Depression Family Hx:: Unable to obtain Review of Systems - Review of Systems Review of systems:: unable to obtain Meds Home Medications Medication Instructions Recorded Confirmed Type Acetaminophen 500 mg PO Q4HP PRN 04/22/17 06/22/19 History Lactulose [Lactulose 10gm/15ml 20 gm PO DAILYP PRN 04/22/17 06/22/19 History Oral Soln] Levothyroxine Sodium 75 mcg PO DAILY 04/22/17 06/22/19 History [Levothyroxine 50mcg (0.05mg) Tab] Loperamide HCl [Loperamide] 2 mg PO Q3HP PRN 04/22/17 06/22/19 History Sennosides/Docusate Sodium 2 each PO TID 03/24/18 06/22/19 History [Senna-S Tablet] Tramadol HCl [Tramadol 50mg 50 mg PO TID 03/24/18 06/22/19 History Tab] Docusate Sodium [Docusate Sod 250 mg PO BID 03/09/19 06/22/19 History Liquid 100mg/10mL udc] Mirtazapine [Remeron 15mg tablet] 15 mg PO HS 03/09/19 06/22/19 History Rivaroxaban [Xarelto 20mg Tablet*] 20 mg PO DAILY 03/09/19 06/22/19 History Omeprazole 20 mg PO DAILY 05/09/19 06/22/19 History Allergies Allergy/AdvReac Type Severity Reaction Status Date / Time erythromycin base Allergy Unknown Verified 06/13/19 12:47 [From ERYTHROCIN] Exam Vital signs and Labs for Last 24 Hours: Temp Pulse Resp BP Pulse Ox 101.5 F H 101 H 26 H 102/64 L 90 L 06/22/19 19:54 06/22/19 19:54 06/22/19 19:54 06/22/19 19:54 06/22/19 20:51 Laboratory Results - last 24 hr 06/22/19 10:08: Urine Color Brown, Urine Appearance Sl cloudy, Urine pH 8.0, Ur Specific [place] 1.020, Urine Protein 3+, Urine Glucose (UA) Trace, Urine Ketones 1+, Urine Blood 3+, Urine Nitrate Positive, Urine Bilirubin Negative, U rine Urobilinogen 1.0, Ur Leukocyte Esterase 2+ A, Urine RBC Tntc, Urine WBC 20- 50, Ur Squamous Epith Cells 5-10, Urine Bacteria 4+, Urine Mucus 4+ 06/22/19 12:15: WBC 18.4 H, RBC 5.82 H, Hgb 16.0, Hct 54.9 H, MCV 94.3, MCH 27.5, MCHC 29.2 L, RDW 15.2, Plt Count 101 L, MPV 14.4 H, Neut % (Auto) 80.7 H, Lymph % (Auto) 16.8, [place] % (Auto) 2.0, Eos % (Auto) 0.2, Baso % (Auto) 0.4, Neut # (Auto) 14.9 H, Lymph # (Auto) 3.1, [place] # (Auto) 0.4, Eos # (Auto) 0.0, Baso # (Auto) 0.1, Total Counted 100, Neutrophils % (Manual) 79 H, Lymphocytes % (Manual) 19, Monocytes % (Manual) 2, Nucleated RBCs 2, Platelet Estimate Marked decrease, Hypochromasia 1+ 06/22/19 12:15: Sodium 168 H*, Potassium 4.9, Chloride 131 H, Carbon Dioxide 21 L, Anion Gap 20.9 H, BUN 98 H, Creatinine 3.70 H, Estimated Creat Clear 8, Estimated GFR 12 L*, Est GFR ( Amer) 14 L*, Glucose 127 H, Calcium 9.8, Total Bilirubin 0.7, AST 406 H*, ALT 178 H, Alkaline Phosphatase 57, Total Protein 7.4, Albumin 4.1, Globulin 3.3 H, Albumin/Globulin Ratio 1.2 06/22/19 12:15: Lactate 6.7 H 06/22/19 17:09: Lactate 2.8 H 06/22/19 20:30: Lactate 6.7 H I & O for Last 24 hours: Intake & Output 06/20/19 06/21/19 06/22/19 06/23/19 11:59 11:59 11:59 11:59 Intake Total 185 / 185 Balance 185 / 185 Weight 85 lb 92 lb 1 oz - Constitutional chronically ill appearing, obtunded - *Routine HEENT Exam Head: Present: normocephalic Eye: Present: EOMI, PERRL. Absent: conjunctival icterus ENT: Present: mucous membranes dry - *Routine Neck Exam Absent: JVD - *Routine Respiratory Exam Present: decreased breath sounds - *Routine Cardiovascular Exam Present: murmur, S4, tachycardia - *Routine Abdominal Exam Present: soft - *Routine Extremities Exam Present: extremity cold to touch. Absent: normal capillary refill Comments: mottled - *Routine Skin Exam Present: mottling - *Routine Neurological Exam Present: altered mental status no focal changes - Routine Psychiatric Exam Present: unable to assess Assessment and Plan (1) UTI (urinary tract infection) Current visit: Yes Status: Acute Qualifiers: Urinary tract infection type: site unspecified Hematuria presence: without hematuria Qualified Code(s): N39.0 - Urinary tract infection, site not specified Category: Medical Code(s): N39.0 - Urinary tract infection, site not specified (2) Sepsis with acute organ dysfunction and septic shock Current visit: Yes Status: Acute Qualifiers: Sepsis type: sepsis due to unspecified organism Severe sepsis acute organ dysfunction type: acute renal failure Acute renal failure type: unspecified Qualified Code(s): A41.9 - Sepsis, unspecified organism; R65.21 - Severe sepsis with septic shock; N17.9 - Acute kidney failure, unspecified Category: Medical Code(s): A41.9 - Sepsis, unspecified organism; R65.21 - Sev ere sepsis with septic shock (3) Low body mass index (BMI) Current visit: Yes Status: Acute Category: Medical (4) JAXON (acute kidney injury) Current visit: Yes Status: Acute Category: Medical Code(s): N17.9 - Acute kidney failure, unspecified (5) Hypernatremia Current visit: Yes Status: Acute Category: Medical Code(s): E87.0 - Hyperosmolality and hypernatremia (6) Transaminitis Current visit: Yes Status: Acute Category: Medical Code(s): R74.0 - Nonspecific elevation of levels of transaminase and lactic acid dehydrogenase [LDH] (7) Hypothyroidism Current visit: Yes Status: Acute Qualifiers: Hypothyroidism type: acquired Qualified Code(s): E03.9 - Hypothyroidism, unspecified Category: Medical Code(s): E03.9 - Hypothyroidism, unspecified
[2019-06-23 05:59] LABS: Basophils # 0.1 K/mm3 (0-0.2); Basophils % 0.4 % (0.1-2.0); Eosinophils # 0.1 K/mm3 (0.0-0.4); Eosinophils % 0.5 % (0.1-12.0); Hemoglobin 14.4 g/dL (12.2-16.2); Lymphocytes # 4.7 K/mm3 (0.7-4.5); Lymphocytes % 26.8 % (10-50); Mean Corpuscular HGB Conc 29.9 g/dL (31.8-35.4); Mean Corpuscular Volume 93.3 fl (81-99); Mean Platelet Volume 13.8 fl (7.4-10.4); Monocytes # 0.2 K/mm3 (0.1-1.0); Monocytes % 1.3 % (1.7-9.3); Neutrophils # 12.4 K/mm3 (1.8-7.8); Red Blood Count 5.15 M/mm3 (4.20-5.40); Red Cell Distribution Width 15.4 % (11.5-17.5); White Blood Count 17.4 K/mm3 (4.8-10.8)
[2019-06-23 06:05] LABS: Platelet Count 41 K/mm3 (142-424)
[2019-06-23 06:20] LABS: Anion Gap 18.2 mEq/L (5-15)
[2019-06-23 06:53] LABS: Calcium 7.7 mg/dl (8.4-10.2)
--- NOTE | 2019-06-23 09:19 | Progress Note ---
Internal Medicine - PN: Subj *Date: 06/23/19 *Time: 09:16 Interval history: pt with dec loc and has cold cyanotic rt foot with dec pulse bp ok and lactic better but bun/cr elevated Exam Vital signs and Labs for Last 24 Hours: Temp Pulse Resp BP Pulse Ox 97.2 F L 93 H 24 129/79 100 06/23/19 08:00 06/23/19 08:00 06/23/19 08:00 06/23/19 08:00 06/23/19 08:00 Laboratory Results - last 24 hr 06/22/19 10:08: Urine Color Brown, Urine Appearance Sl cloudy, Urine pH 8.0, Ur Specific [place] 1.020, Urine Protein 3+, Urine Glucose (UA) Trace, Urine Ketones 1+, Urine Blood 3+, Urine Nitrate Positive, Urine Bilirubin Negative, Urine Urobilinogen 1.0, Ur Leukocyte Esterase 2+ A, Urine RBC Tntc, Urine WBC 20-50, Ur Squamous Epith Cells 5-10, Urine Bacteria 4+, Urine Mucus 4+ 06/22/19 12:15: WBC 18.4 H, RBC 5.82 H, Hgb 16.0, Hct 54.9 H, MCV 94.3, MCH 27.5, MCHC 29.2 L, RDW 15.2, Plt Count 101 L, MPV 14.4 H, Neut % (Auto) 80.7 H, Lymph % (Auto) 16.8, [place] % (Auto) 2.0, Eos % (Auto) 0.2, Baso % (Auto) 0.4, Neut # (Auto) 14.9 H, Lymph # (Auto) 3.1, [place] # (Auto) 0.4, Eos # (Auto) 0.0, Baso # (Auto) 0.1, Total Counted 100, Neutrophils % (Manual) 79 H, Lymphocytes % (Manual) 19, Monocytes % (Manual) 2, Nucleated RBCs 2, Platelet Estimate Marked decrease, Hypochromasia 1+ 06/22/19 12:15: Sodium 168 H*, Potassium 4.9, Chloride 131 H, Carbon Dioxide 21 L, Anion Gap 20.9 H, BUN 98 H, Creatinine 3.70 H, Estimated Creat Clear 8, Estimated GFR 12 L*, Est GFR ( Amer) 14 L*, Glucose 127 H, Calcium 9.8, Total Bilirubin 0.7, AST 406 H*, ALT 178 H, Alkaline Phosphatase 57, Total Protein 7.4, Albumin 4.1, Globulin 3.3 H, Albumin/Globulin Ratio 1.2 06/22/19 12:15: Lactate 6.7 H 06/22/19 17:09: Lactate 2.8 H 06/22/19 20:30: Lactate 6.7 H 06/23/19 05:45: WBC 17.4 H, RBC 5.15, Hgb 14.4, Hct 48.0 H, MCV 93.3, MCH 27.9, MCHC 29.9 L, RDW 15.4, Plt Count 41 L* D, MPV 13.8 H, Neut % (Auto) 71.0, Lymph % (Auto) 26.8, [place] % (Auto) 1.3 L, Eos % (Auto) 0.5, Baso % (Auto) 0.4, Neut # (Auto) 12.4 H, Lymph # (Auto) 4.7 H, [place] # (Auto) 0.2, Eos # (Auto) 0.1, Baso # (Auto) 0.1 06/23/19 05:45: Sodium 158 H*, Potassium 4.2, Chloride 129 H, Carbon Dioxide 15 L D, Anion Gap 18.2 H, BUN 105 H*, Creatinine 3.50 H, Estimated Creat Clear 9, Estimated GFR 13 L*, Est GFR ( Amer) 15 L*, Glucose 121 H, Calcium 7.7 L D 06/23/19 05:45: Lactate 2.0 I & O for Last 24 hours: Intake & Output 06/20/19 06/21/19 06/22/19 06/23/19 11:59 11:59 11:59 11:59 Intake Total 2128 / 2128 Output Total 150 / 150 Balance 1978 / 1978 Weight 85 lb 99 lb 7 oz Microbiology Reports for the Last 24 Hours: Microbiology 06/22/19 10:08 Urine,Clean Catch Urine Culture - Preliminary - Constitutional obtunded - *Routine HEENT Exam Head: Present: normocephalic Eye: Present: EOMI, PERRL ENT: Present: mucous membranes dry - *Routine Neck Exam Absent: full ROM - *Routine Respiratory Exam Present: decreased breath sounds - *Routine Cardiovascular Exam Present: RRR, murmur - *Routine Abdominal Exam Present: soft - *Routine Extremities Exam Present: extremity cold to touch. Absent: pulses intact Comments: cyanosis to rt foot - *Routine Skin Exam Present: dry - *Routine Neurological Exam Present: alert, altered mental status (dec focal changes ) - Routine Psychiatric Exam Present: unable to assess Assessment and Plan (1) UTI (urinary tract infection) Current visit: Yes Status: Acute Qualifiers: Urinary tract infection type: site unspecified Hematuria presence: without hematuria Qualified Code(s): N39.0 - Urinary tract infection, site not specified Category: Medical Code(s): N39.0 - Urinary tract infection, site not specified (2) Sepsis with acute organ dysfunction and septic shock Current visit: Yes Status: Acute Qualifiers: Sepsis type: sepsis due to unspecified organism Severe sepsis acute organ dysfunction type: acute renal failure Acute renal failure type: unspecified Qualified Code(s): A41.9 - Sepsis, unspecified organism; R65.21 - Severe sepsis with septic shock; N17.9 - Acute kidney failure, unspecified Category: Medical Code(s): A41.9 - Sepsis, unspecified organism; R65.21 - Severe sepsis with septic shock (3) Low body mass index (BMI) Current visit: Yes Status: Acute Category: Medical (4) JAXON (acute kidney injury) Current visit: Yes Status: Acute Category: Medical Code(s): N17.9 - Acute kidney failure, unspecified (5) Hypernatremia Current visit: Yes Status: Acute Category: Medical Code(s): E87.0 - Hyperosmolality and hypernatremia (6) Transaminitis Current visit: Yes Status: Acute Category: Medical Code(s): R74.0 - Nonspecific elevation of levels of transaminase and lactic acid dehydrogenase [LDH] (7) Hypothyroidism Current visit: Yes Status: Acute Qualifiers: Hypothyroidism type: acquired Qualified Code(s): E03.9 - Hypothyroidism, unspecified Category: Medical Code(s): E03.9 - Hypothyroidism, unspecified (8) Lower extremity arterial insufficiency, severe, right Current visit: Yes Status: Acute Category: Medical Code(s): I73.9 - Peripheral vascular disease, unspecified (9) Thrombocytopenia Current visit: Yes Status: Acute Category: Medical Code(s): D69.6 - Thrombocytopenia, unspecified
[2019-06-23 09:30] LABS: Lymphocytes % 24 % (10-50); Monocytes % 1 % (2-9); Neutrophils % 75 % (42-76); Total Cells Counted 100
[2019-06-23 09:31] LABS: Hypochromasia 1+
[2019-06-24 08:43] LABS: Basophils % 0.1 % (0.1-2.0); Calcium 7.7 mg/dl (8.4-10.2); Eosinophils % 0.3 % (0.1-12.0); Hemoglobin 12.9 g/dL (12.2-16.2); Lymphocytes # 2.2 K/mm3 (0.7-4.5); Lymphocytes % 16.5 % (10-50); Mean Corpuscular HGB Conc 29.3 g/dL (31.8-35.4); Mean Corpuscular Volume 92.7 fl (81-99); Mean Platelet Volume 13.9 fl (7.4-10.4); Monocytes # 0.2 K/mm3 (0.1-1.0); Monocytes % 1.8 % (1.7-9.3); Neutrophils # 10.7 K/mm3 (1.8-7.8); Neutrophils % 81.4 % (37.0-80.0); Red Blood Count 4.74 M/mm3 (4.20-5.40); Red Cell Distribution Width 15.7 % (11.5-17.5); White Blood Count 13.2 K/mm3 (4.8-10.8)
[2019-06-24 08:46] LABS: Platelet Count 41 K/mm3 (142-424)
[2019-06-25 07:42] LABS: Basophils % 0.1 % (0.1-2.0); Eosinophils % 0.4 % (0.1-12.0); Hematocrit 36.7 % (37.0-47.0); Lymphocytes # 1.8 K/mm3 (0.7-4.5); Lymphocytes % 19.1 % (10-50); Mean Corpuscular HGB Conc 30.1 g/dL (31.8-35.4); Mean Corpuscular Volume 91.1 fl (81-99); Monocytes # 0.2 K/mm3 (0.1-1.0); Monocytes % 2.3 % (1.7-9.3); Neutrophils # 7.2 K/mm3 (1.8-7.8); Neutrophils % 78.1 % (37.0-80.0); Red Blood Count 4.04 M/mm3 (4.20-5.40); Red Cell Distribution Width 15.4 % (11.5-17.5); White Blood Count 9.3 K/mm3 (4.8-10.8)
[2019-06-25 07:47] LABS: Platelet Count 40 K/mm3 (142-424)
[2019-06-25 07:50] LABS: Anion Gap 15.8 mEq/L (5-15); Calcium 7.8 mg/dl (8.4-10.2)
[2019-06-25 07:54] LABS: Hemoglobin 11.3 g/dL (12.2-16.2)
--- NOTE | 2019-06-25 09:42 | Progress Note ---
Internal Medicine - PN: Subj *Date: 06/25/19 *Time: 09:45 Interval history: pt is unresponsive Exam Vital signs and Labs for Last 24 Hours: Temp Pulse Resp BP Pulse Ox 97.4 F L 54 L 20 111/48 L 99 06/25/19 08:00 06/25/19 08:00 06/25/19 08:00 06/25/19 08:00 06/25/19 08:00 Laboratory Results - last 24 hr 06/25/19 06:28: WBC 9.3 D, RBC 4.04 L, Hgb 11.3 L D, Hct 36.7 L, MCV 91.1, MCH 27.4, MCHC 30.1 L, RDW 15.4, Plt Count 40 L*, MPV 12.0 H, Neut % (Auto) 78.1, Lymph % (Auto) 19.1, [place] % (Auto) 2.3, Eos % (Auto) 0.4, Baso % (Auto) 0.1, Neut # (Auto) 7.2, Lymph # (Auto) 1.8, [place] # (Auto) 0.2, Eos # (Auto) 0.0, Baso # (Auto) 0.0 06/25/19 06:28: Sodium 157 H*, Potassium 3.8, Chloride 130 H, Carbon Dioxide 15 L, Anion Gap 15.8 H, BUN 48 H D, Creatinine 1.00 D, Estimated Creat Clear 35, Estimated GFR 54 L, Est GFR ( Amer) 65 D, Glucose 89, Calcium 7.8 L I & O for Last 24 hours: Intake & Output 06/22/19 06/23/19 06/24/19 06/25/19 11:59 11:59 11:59 11:59 Intake Total 212 / 2129 1452 / 1452 2146 / 2146 Output Total 150 / 150 500 / 500 200 / 200 Balance 1978 / 1978 952 / 952 1946 / 194 Weight 85 lb 99 lb 7 oz 98 lb 3 oz 104 lb 5 oz Microbiology Reports for the Last 24 Hours: Microbiology 06/22/19 10:08 Urine,Clean Catch Urine Culture - Final Escherichia coli Morganella morganii 06/22/19 17:09 Blood Blood Culture - Preliminary NO GROWTH AFTER 48 HOURS 06/22/19 12:15 Blood Blood Culture - Preliminary NO GROWTH AFTER 48 HOURS - Constitutional no acute distress, chronically ill appearing - *Routine HEENT Exam Head: Present: normocephalic Eye: Present: PERRL ENT: Present: mucous membranes moist - *Routine Neck Exam Present: supple. Absent: lymphadenopathy - *Routine Respiratory Exam Present: decreased breath sounds, CTA bilaterally - *Routine Cardiovascular Exam Present: RRR - *Routine Abdominal Exam Present: soft, normoactive bowel sounds. Absent: tenderness - *Routine Extremities Exam Present: extremity cold to touch. Absent: cyanosis, clubbing, edema Comments: left great toe purple, purple to foot and ankle- improved since yesterday with decrease pulses rt foot and ankle purple in color with decrease pulses - *Routine Skin Exam Present: warm. Absent: rash - *Routine Neurological Exam lethargic - Routine Psychiatric Exam Present: unable to assess Assessment and Plan (1) UTI (urinary tract infection) Current visit: Yes Status: Acute Qualifiers: Urinary tract infection type: site unspecified Hematuria presence: without hematuria Qualified Code(s): N39.0 - Urinary tract infection, site not specified Category: Medical Code(s): N39.0 - Urinary tract infection, site not specified (2) Sepsis with acute organ dysfunction and septic shock Current visit: Yes Status: Acute Qualifiers: Sepsis type: sepsis due to unspecified organism Severe sepsis acute organ dysfunction type: acute renal failure Acute renal failure type: unspecified Qualified Code(s): A41.9 - Sepsis, unspecified organism; R65.21 - Severe sepsis with septic shock; N17.9 - Acute kidney failure, unspecified Category: Medical Code(s): A41.9 - Sepsis, unspecified organism; R65.21 - Severe sepsis with septic shock (3) Low body mass index (BMI) Current visit: Yes Status: Acute Category: Medical (4) JAXON (acute kidney injury) Current visit: Yes Status: Acute Category: Medical Code(s): N17.9 - Acute kidney failure, unspecified (5) Hypernatremia Current visit: Yes Status: Acute Category: Medical Code(s): E87.0 - H yperosmolality and hypernatremia (6) Transaminitis Current visit: Yes Status: Acute Category: Medical Code(s): R74.0 - Nonspecific elevation of levels of transaminase and lactic acid dehydrogenase [LDH] (7) Hypothyroidism Current visit: Yes Status: Acute Qualifiers: Hypothyroidism type: acquired Qualified Code(s): E03.9 - Hypothyroidism, unspecified Category: Medical Code(s): E03.9 - Hypothyroidism, unspecified (8) Lower extremity arterial insufficiency, severe, right Current visit: Yes Status: Acute Category: Medical Code(s): I73.9 - Peripheral vascular disease, unspecified (9) Thrombocytopenia Current visit: Yes Status: Acute Category: Medical Code(s): D69.6 - Thrombocytopenia, unspecified (10) ESBL (extended spectrum beta-lactamase) producing bacteria infection Current visit: Yes Status: Acute Category: Medical Code(s): A49.9 - Bacterial infection, unspecified; Z16.12 - Extended spectrum beta lactamase (ESBL) resistance (11) UTI due to extended-spectrum beta lactamase (ESBL) producing Escherichia coli Current visit: Yes Status: Acute Category: Medical Code(s): N39.0 - Urinary tract infection, site not specified; B96.29 - Other Escherichia coli [E. coli] as the cause of diseases classified elsewhere; Z16.12 - Extended spectrum beta lactamase (ESBL) resistance (12) Bacterial infection due to Morganella morganii Current visit: Yes Status: Acute Category: Medical Code(s): A49.8 - Other bacterial infections of unspecified site - Assessment and plan all Dx Assessment and Plan for all problems:: rounded with dr ghosh all orders per dr ghosh
--- NOTE | 2019-06-25 09:53 | Progress Note ---
Internal Medicine - PN: Subj *Date: 06/24/19 *Time: 09:48 Exam Vital signs and Labs for Last 24 Hours: Temp Pulse Resp BP Pulse Ox 97.4 F L 54 L 20 111/48 L 99 06/25/19 08:00 06/25/19 08:00 06/25/19 08:00 06/25/19 08:00 06/25/19 08:00 Laboratory Results - last 24 hr 06/25/19 06:28: WBC 9.3 D, RBC 4.04 L, Hgb 11.3 L D, Hct 36.7 L, MCV 91.1, MCH 27.4, MCHC 30.1 L, RDW 15.4, Plt Count 40 L*, MPV 12.0 H, Neut % (Auto) 78.1, Lymph % (Auto) 19.1, [place] % (Auto) 2.3, Eos % (Auto) 0.4, Baso % (Auto) 0.1, Neut # (Auto) 7.2, Lymph # (Auto) 1.8, [place] # (Auto) 0.2, Eos # (Auto) 0.0, Baso # (Auto) 0.0 06/25/19 06:28: Sodium 157 H*, Potassium 3.8, Chloride 130 H, Carbon Dioxide 15 L, Anion Gap 15.8 H, BUN 48 H D, Creatinine 1.00 D, Estimated Creat Clear 35, Estimated GFR 54 L, Est GFR ( Amer) 65 D, Glucose 89, Calcium 7.8 L I & O for Last 24 hours: Intake & Output 06/22/19 06/23/19 06/24/19 06/25/19 11:59 11:59 11:59 11:59 Intake Total 2128 / 2128 1452 / 1452 214 / 214 Output Total 150 / 150 500 / 500 200 / 200 Balance 1978 / 1978 952 / 952 194 / 194 Weight 85 lb 99 lb 7 oz 98 lb 3 oz 104 lb 5 oz Microbiology Reports for the Last 24 Hours: Microbiology 06/22/19 10:08 Urine,Clean Catch Urine Culture - Final Escherichia coli Morganella morganii 06/22/19 17:09 Blood Blood Culture - Preliminary NO GROWTH AFTER 48 HOURS 06/22/19 12:15 Blood Blood Culture - Preliminary NO GROWTH AFTER 48 HOURS - *Routine HEENT Exam Head: Present: normocephalic Eye: Present: PERRL ENT: Present: mucous membranes moist - *Routine Neck Exam Present: supple. Absent: lymphadenopathy - *Routine Respiratory Exam Present: decreased breath sounds, CTA bilaterally - *Routine Cardiovascular Exam Present: RRR - *Routine Abdominal Exam Present: soft, normoactive bowel sounds. Absent: tenderness - *Routine Extremities Exam Absent: clubbing, edema Comments: left great toe purple and purple foot and ankle decrease pulse rt foot and ankle purple color with decrease pulse - *Routine Skin Exam Present: warm. Absent: rash - *Routine Neurological Exam lethargic - Routine Psychiatric Exam Present: unable to assess Assessment and Plan (1) UTI (urinary tract infection) Current visit: Yes Status: Acute Qualifiers: Urinary tract infection type: site unspecified Hematuria presence: without hematuria Qualified Code(s): N39.0 - Urinary tract infection, site not specified Category: Medical Code(s): N39.0 - Urinary tract infection, site not specified (2) Sepsis with acute organ dysfunction and septic shock Current visit: Yes Status: Acute Qualifiers: Sepsis type: sepsis due to unspecified organism Severe sepsis acute organ dysfunction type: acute renal failure Acute renal failure type: unspecified Qualified Code(s): A41.9 - Sepsis, unspecified organism; R65.21 - Severe sepsis with septic shock; N17.9 - Acute kidney failure, unspecified Category: Medical Code(s): A41.9 - Sepsis, unspecified organism; R65.21 - Severe sepsis with septic shock (3) Low body mass index (BMI) Current visit: Yes Status: Acute Category: Medical (4) JAXON (acute kidney injury) Current visit: Yes Status: Acute Category: Medical Code(s): N17.9 - Acute kidney failure, unspecified (5) Hypernatremia Current visit: Yes Status: Acute Category: Medical Code(s): E87.0 - Hyperosmolality and hypernatremia (6) Transaminitis Current visit: Yes Status: Acute Category: Medical Code(s): R74.0 - Nonspecific elevation of levels of transaminase and lactic acid dehydrogenase [LDH] (7) Hypothyroidism Current visit: Yes Status: Acute Qualifiers: Hypothyroidism type: acquired Qualified Code(s): E03.9 - Hypothyroidism, unspecified Category: Medical Code(s): E03.9 - Hypothyroidism, unspecified (8) Lower extremity arterial insufficiency, severe, right Current visit: Yes Status: Acute Category: Medical Code(s): I73.9 - Peripheral vascular disease, unspecified (9) Thrombocytopenia Current visit: Yes Status: Acute Category: Medical Code(s): D69.6 - Thrombocytopenia, unspecified (10) ESBL (extended spectrum beta-lactamase) producing bacteria infection Current visit: Yes Status: Acute Category: Medical Code(s): A49.9 - Bacterial infection, unspecified; Z16.12 - Extended spectrum beta lactamase (ESBL) resistance (11) UTI due to extended-spectrum beta lactamase (ESBL) producing Escherichia coli Current visit: Yes Status: Acute Category: Medical Code(s): N39.0 - Urinary tract infection, site not specified; B96.29 - Other Escherichia coli [E. coli] as the cause of diseases classified elsewhere; Z16.12 - Extended spectrum beta lactamase (ESBL) resistance (12) Bacterial infection due to Morganella morganii Current visit: Yes Status: Acute Category: Medical Code(s): A49.8 - Other bacterial infections of unspecified site - Assessment and plan all Dx Assessment and Plan for all problems:: rounded with dr french all orders per dr ghosh
--- NOTE | 2019-06-26 09:00 | Progress Note ---
Internal Medicine - PN: Subj *Date: 06/27/19 *Time: 07:39 Interval history: arousable but has ongoing sepsis with ischemic changes lt ffot - does not appear in pain Exam Vital signs and Labs for Last 24 Hours: Temp Pulse Resp BP Pulse Ox 97.9 F 56 L 16 104/54 L 100 06/26/19 08:00 06/26/19 08:00 06/26/19 08:00 06/26/19 08:00 06/26/19 08:00 I & O for Last 24 hours: Intake & Output 06/23/19 06/24/19 06/25/19 06/26/19 11:59 11:59 11:59 11:59 Intake Total 2129 / 2129 1452 / 1452 2146 / 2146 2384 / 2384 Output Total 150 / 150 500 / 500 200 / 200 575 / 575 Balance 1978 / 1978 952 / 952 1946 / 1946 1809 / 1809 Weight 99 lb 7 oz 98 lb 3 oz 104 lb 5 oz 103 lb 7 oz Microbiology Reports for the Last 24 Hours: Microbiology 06/22/19 10:08 Urine,Clean Catch Urine Culture - Final Escherichia coli Morganella morganii - Constitutional cachectic, chronically ill appearing, obtunded - *Routine HEENT Exam Head: Present: normocephalic Eye: Present: EOMI, PERRL ENT: Present: mucous membranes dry - *Routine Neck Exam Absent: JVD - *Routine Respiratory Exam Present: decreased breath sounds - *Routine Cardiovascular Exam Present: RRR - *Routine Abdominal Exam Present: soft - *Routine Extremities Exam Comments: ischemia changes lt foot - *Routine Skin Exam Comments: changes lt foot - *Routine Neurological Exam Present: altered mental status - Routine Psychiatric Exam Present: unable to assess Assessment and Plan (1) UTI (urinary tract infection) Current visit: Yes Status: Acute Qualifiers: Urinary tract infection type: site unspecified Hematuria presence: without hematuria Qualified Code(s): N39.0 - Urinary tract infection, site not specified Category: Medical Code(s): N39.0 - Urinary tract infection, site not specified (2) Sepsis with acute organ dysfunction and septic shock Current visit: Yes Status: Acute Qualifiers: Sepsis type: sepsis due to unspecified organism Severe sepsis acute organ dysfunction type: acute renal failure Acute renal failure type: unspecified Qualified Code(s): A41.9 - Sepsis, unspecified organism; R65.21 - Severe sepsis with septic shock; N17.9 - Acute kidney failure, unspecified Category: Medical Code(s): A41.9 - Sepsis, unspecified organism; R65.21 - Severe sepsis with septic shock (3) Low body mass index (BMI) Current visit: Yes Status: Acute Category: Medical (4) JAXON (acute kidney injury) Current visit: Yes Status: Acute Category: Medical Code(s): N17.9 - Acute kidney failure, unspecified (5) Hypernatremia Current visit: Yes Status: Acute Category: Medical Code(s): E87.0 - Hyperosmolality and hypernatremia (6) Transaminitis Current visit: Yes Status: Acute Category: Medical Code(s): R74.0 - Nonspecific elevation of levels of transaminase and lactic acid dehydrogenase [LDH] (7) Hypothyroidism Current visit: Yes Status: Acute Qualifiers: Hypothyroidism type: acquired Qualified Code(s): E03.9 - Hypothyroidism, unspecified Category: Medical Code(s): E03.9 - Hypothyroidism, unspecified (8) Lower extremity arterial insufficiency, severe, right Current visit: Yes Status: Acute Category: Medical Code(s): I73.9 - Peripheral vascular disease, unspecified (9) Thrombocytopenia Current visit: Yes Status: Acute Category: Medical Code(s): D69.6 - Thrombocytopenia, unspecified (10) ESBL (extended spectrum beta-lactamase) producing bacteria infection Current visit: Yes Status: Acute Category: Medical Code(s): A49.9 - Bacterial infection, unspecified; Z16.12 - Extended spectrum beta lactamase (ESBL) resistance (11) UTI due to extended-spectrum beta lactamase (ESBL) producing Escherichia coli Current visit: Yes Status: Acute Category: Medical Code(s): N39.0 - Urinary tract infection, site not specified; B96.29 - Other Escherichia coli [E. coli] as the cause of diseases classified elsewhere; Z16.12 - Extended spectrum beta lactamase (ESBL) resistance (12) Bacterial infection due to Morganella morganii Current visit: Yes Status: Acute Category: Medical Code(s): A49.8 - Other bacterial infections of unspecified site
--- NOTE | 2019-06-27 08:40 | Progress Note ---
Internal Medicine - PN: Subj *Date: 06/27/19 *Time: 08:37 Interval history: Patient alert with eyes open. Opens eyes when name called. Exam Vital signs and Labs for Last 24 Hours: Temp Pulse Resp BP Pulse Ox 97.9 F 52 L 22 126/57 L 96 06/27/19 04:00 06/27/19 04:00 06/27/19 04:00 06/27/19 04:00 06/27/19 04:00 I & O for Last 24 hours: Intake & Output 06/24/19 06/25/19 06/26/19 06/27/19 11:59 11:59 11:59 11:59 Intake Total 1452 / 1452 2146 / 2146 2384 / 2384 2356 / 2356 Output Total 500 / 500 200 / 200 575 / 575 200 / 200 Balance 952 / 952 1946 / 1946 1809 / 1809 2156 / 2156 Weight 98 lb 3 oz 104 lb 5 oz 103 lb 7 oz 106 lb 3 oz Microbiology Reports for the Last 24 Hours: Microbiology 06/22/19 12:15 Blood Blood Culture - Preliminary - Constitutional no acute distress, chronically ill appearing - *Routine HEENT Exam Head: Present: normocephalic Eye: Present: PERRL ENT: Present: mucous membranes moist - *Routine Neck Exam Present: supple. Absent: lymphadenopathy - *Routine Respiratory Exam Present: decreased breath sounds, rhonchi - *Routine Cardiovascular Exam Present: RRR - *Routine Abdominal Exam Present: soft, normoactive bowel sounds. Absent: tenderness - *Routine Extremities Exam Absent: cyanosis, clubbing, edema Comments: Left foot improved with part fullness just 2 small purple pinpoint areas on great toe scattered scabbed areas on foot and ankle. Right foot purple extends to ankle with decreased pulses - *Routine Skin Exam Present: warm. Absent: rash Comments: Left foot improving with 2 small purple-pink point areas on great toe scattered scabs Right purple foot extends to ankle. - *Routine Neurological Exam Present: alert - Routine Psychiatric Exam Present: normal affect Assessment and Plan (1) UTI (urinary tract infection) Current visit: Yes Status: Acute Qualifiers: Urinary tract infection type: site unspecified Hematuria presence: without hematuria Qualified Code(s): N39.0 - Urinary tract infection, site not spe cified Category: Medical Code(s): N39.0 - Urinary tract infection, site not specified (2) Sepsis with acute organ dysfunction and septic shock Current visit: Yes Status: Acute Qualifiers: Sepsis type: sepsis due to unspecified organism Severe sepsis acute organ dysfunction type: acute renal failure Acute renal failure type: unspecified Qualified Code(s): A41.9 - Sepsis, unspecified organism; R65.21 - Severe sepsis with septic shock; N17.9 - Acute kidney failure, unspecified Category: Medical Code(s): A41.9 - Sepsis, unspecified organism; R65.21 - Severe sepsis with septic shock (3) Low body mass index (BMI) Current visit: Yes Status: Acute Category: Medical (4) JAXON (acute kidney injury) Current visit: Yes Status: Acute Category: Medical Code(s): N17.9 - Acute kidney failure, unspecified (5) Hypernatremia Current visit: Yes Status: Acute Category: Medical Code(s): E87.0 - Hyperosmolality and hypernatremia (6) Transaminitis Current visit: Yes Status: Acute Category: Medical Code(s): R74.0 - Nonspecific elevation of levels of transaminase and lactic acid dehydrogenase [LDH] (7) Hypothyroidism Current visit: Yes Status: Acute Qualifiers: Hypothyroidism type: acquired Qualified Code(s): E03.9 - Hypothyroidism, unspecified Category: Medical Code(s): E03.9 - Hypothyroidism, unspecified (8) Lower extremity arterial insufficiency, severe, right Current visit: Yes Status: Acute Category: Medical Code(s): I73.9 - Peripheral vascular disease, unspecified (9) Thrombocytopenia Current visit: Yes Status: Acute Category: Medical Code(s): D69.6 - Thrombocytopenia, unspecified (10) ESBL (extended spectrum beta-lactamase) producing bacteria infection Current visit: Yes Status: Acute Category: Medical Code(s): A49.9 - Bacterial infection, unspecified; Z16.12 - Extended spectrum beta lactamase (ESBL) resistance (11) UTI due to extended-spectrum beta lactamase (ESBL) producing Escherichia coli Current visit: Yes Status: Acute Category: Medical Code(s): N39.0 - Urinary tract infection, site not specified; B96.29 - Other Escherichia coli [E. coli] as the cause of diseases classified elsewhere; Z16.12 - Extended spectrum beta lactamase (ESBL) resistance (12) Bacterial infection due to Morganella morganii Current visit: Yes Status: Acute Category: Medical Code(s): A49.8 - Other bacterial infections of unspecified site (13) Ischemia of both lower extremities Current visit: Yes Status: Acute Category: Medical Code(s): I99.8 - Other disorder of circulatory system Left improved right foot extends to ankle - Assessment and plan all Dx Assessment and Plan for all problems:: Rounded with Dr. Mendenhall all orders per Abdirashid Consult cardiology and podiatry
--- NOTE | 2019-06-27 10:01 | Consult Report ---
History of Present Illness Consult date: 06/27/19 Requesting physician: Bryce Mendenhall Chief complaint: Ischemic changes of feet (right>left) Additional Medical History:: 1. Hypertension 2. Hyperlipidemia 3. COPD 4. DNR 5. History of DVT on Xarelto therapy per records 6. Nephrolithiasis 7. Hypothyroidism, on replacement therapy 8. Hospitalization, 05/2019, UTI, sepsis, acute renal failure, thrombocytopenia (platelet count 40,000) History of present illness: 78 yo WF [facility], Sepsis, Acute kidney disease with ischemic changes of feet. Renal function has improved with IVF. She is currently on antibiotics for UTI. Cardiology asked to see patient for ischemic changes of feet. Pt unable to communicate. She is in bed in a partially contracted position without labored breathing. Congested cough noted with audible rhonchi. Pt is DNR. [facility] History Medical History: Reports:: Chronic Obstructive Pulmonary Disease (COPD), Deep Vein Thrombosis, Depression, Hyperlipidemia, Hypertension, Kidney Stones, Osteoporosis, Urinary Tract Infection Denies:: Cancer, Diabetes Mellitus Type 1, Diabetes Mellitus Type 2, Internal Pacemaker, MRSA *Have you ever received a pneumonia vaccine?: Yes *Have you received a flu vaccine this season?: Yes Other Medical History: Reports: Anemia, Cataracts, Hypothyroidism, Osteoporosis, Thyroid Disease Other Surgeries: Yes: Cardiac Catheterization. No: Pacemaker. Comment Only: No Previous Surgery (UNKNOWN IF PT HAS HAD ANY SURGERIES) Amputation: No Fractures: No - *Social History Smoking Status: Unknown if ever smoked Alcohol Intake: never *Occupational Status:: other Housing: halfway Household Members: other *Travel in the last 8 weeks: None - Psychiatric History Pschychiatric History:: Reports:: Depression Family Hx:: Unable to obtain Meds Home Medications Medication Instructions Recorded Confirmed Type Acetaminophen 500 mg PO Q4HP PRN 04/22/17 06/22/19 History Lactulose [Lactulose 10gm/15ml 20 gm PO DAILYP PRN 04/22/17 06/22/19 History Oral Soln] Levothyroxine Sodium 75 mcg PO DAILY 04/22/17 06/22/19 History [Levothyroxine 50mcg (0.05mg) Tab] Loperamide HCl [Loperamide] 2 mg PO Q3HP PRN 04/22/17 06/22/19 History Sennosides/Docusate Sodium 2 each PO TID 03/24/18 06/22/19 History [Senna-S Tablet] Tramadol HCl [Tramadol 50mg 50 mg PO TID 03/24/18 06/22/19 History Tab] Docusate Sodium [Docusate Sod 250 mg PO BID 03/09/19 06/22/19 History Liquid 100mg/10mL udc] Mirtazapine [Remeron 15mg tablet] 15 mg PO HS 03/09/19 06/22/19 History Rivaroxaban [Xarelto 20mg Tablet*] 20 mg PO DAILY 03/09/19 06/22/19 History Omeprazole 20 mg PO DAILY 05/09/19 06/22/19 History Allergies Allergy/AdvReac Type Severity Reaction Status Date / Time erythromycin base Allergy Unknown Verified 06/13/19 12:47 [From ERYTHROCIN] Review of Systems - Review of Systems Review of systems:: unable to obtain Exam Vital signs and Labs for Last 24 Hours: Temp Pulse Resp BP Pulse Ox 98.0 F 95 H 28 H 126/51 L 94 L 06/27/19 08:00 06/27/19 08:00 06/27/19 08:00 06/27/19 08:00 06/27/19 08:00 I & O for Last 24 hours: Intake & Output 06/24/19 06/25/19 06/26/19 06/27/19 11:59 11:59 11:59 11:59 Intake Total 1452 / 1452 2146 / 2146 2384 / 2384 2356 / 2356 Output Total 500 / 500 200 / 200 575 / 575 200 / 200 Balance 952 / 952 1946 / 1946 1809 / 1809 2156 / 2156 Weight 98 lb 3 oz 104 lb 5 oz 103 lb 7 oz 106 lb 3 oz Microbiology Reports for the Last 24 Hours: Microbiology 06/22/19 12:15 Blood Blood Culture - Preliminary - *Routine Respiratory Exam Present: rhonchi. Absent: accessory muscle use, rales, wheezes - *Routine Cardiovascular Exam Present: RRR. Absent: murmur, gallop, rubs - *Routine Abdominal Exam Present: soft. Absent: tenderness, distended, guarding - *Routine Extremities Exam Present: cyanosis. Absent: edema, calf tenderness Comments: Right foot with line of demarcation noted in the transmetatarsal area with ischemic changes to the toes with faint DP and PT pulses appreciable. Left foot with ischemic changes of the great toe and the tip of the second toe. Pulses more readily appreciable when compared to the right. Some edema noted of both feet to the ankle areas Patient has contractures of the legs which prevent straightening beyond 90 degrees angle. - *Routine Neurological Exam Nonresponsive Assessment and Plan (1) UTI (urinary tract infection) Current visit: Yes Status: Acute Qualifiers: Urinary tract infection type: site unspecified Hematuria presence: without hematuria Qualified Code(s): N39.0 - Urinary tract infection, site not specified Category: Medical Code(s): N39.0 - Urinary tract infection, site not specified (2) Sepsis with acute organ dysfunction and septic shock Current visit: Yes Status: Acute Qualifiers: Sepsis type: sepsis due to unspecified organism Severe sepsis acute organ dysfunction type: acute renal failure Acute renal failure type: unspecified Qualified Code(s): A41.9 - Sepsis, unspecified organism; R65.21 - Severe sepsis with septic shock; N17.9 - Acute kidney failure, unspecified Category: Medical Code(s): A41.9 - Sepsis, unspecified organism; R65.21 - Severe sepsis with septic shock (3) Low body mass index (BMI) Current visit: Yes Status: Acute Category: Medical (4) JAXON (acute kidney injury) Current visit: Yes Status: Acute Category: Medical Code(s): N17.9 - Acute kidney failure, unspecified (5) Hypernatremia Current visit: Yes Status: Acute Category: Medical Code(s): E87.0 - Hyperosmolality and hypernatremia (6) Transaminitis Current visit: Yes Status: Acute Category: Medical Code(s): R74.0 - Nonspecific elevation of levels of transaminase and lactic acid dehydrogenase [LDH] (7) Hypothyroidism Current visit: Yes Status: Acute Qualifiers: Hypothyroidism type: acquired Qualified Code(s): E03.9 - Hypothyroidism, unspecified Category: Medical Code(s): E03.9 - Hypothyroidism, unspecified (8) Lower extremity arterial insufficiency, severe, right Current visit: Yes Status: Acute Category: Medical Code(s): I73.9 - Peripheral vascular disease, unspecified (9) Thrombocytopenia Current visit: Yes Status: Acute Category: Medical Code(s): D69.6 - Thrombocytopenia, unspecified (10) ESBL (extended spectrum beta-lactamase) producing bacteria infection Current visit: Yes Status: Acute Category: Medical Code(s): A49.9 - Bacterial infection, unspecified; Z16.12 - Extended spectrum beta lactamase (ESBL) resistance (11) UTI due to extended-spectrum beta lactamase (ESBL) producing Escherichia coli Current visit: Yes Status: Acute Category: Medical Code(s): N39.0 - Urinary tract infection, site not specified; B96.29 - Other Escherichia coli [E. coli] as the cause of diseases classified elsewhere; Z16.12 - Extended spectrum beta lactamase (ESBL) resistance (12) Bacterial infection due to Morganella morganii Current visit: Yes Status: Acute Category: Medical Code(s): A49.8 - Other bacterial infections of unspecified site (13) Ischemia of both lower extremities Current visit: Yes Status: Acute Category: Medical Code(s): I99.8 - Other disorder of circulatory system - Assessment and plan all Dx Assessment and Plan for all problems:: 1. Discussed with Dr. Woods who is covering for Dr. Yarbrough. Due to the patient's contractures, she would not be a candidate for lower extremity angiogram. In discussing the patient's physical findings with Dr. Woods, he suspects that she has had some sort of embolic event (such as calcium emboli or plaque rupture) despite anticoagulation therapy with Xarelto. Preliminary ABIs would suggest extensive calcification of legs with falsely elevated readings. Patient's severe thrombocytopenia prohibits treatment with antiplatelet therapy but would recommend resuming anticoagulation therapy (Xarelto 20 mg daily as long as her creatinine clearance >51). 2. Unfortunately, Nothing further to add/recommend except palliative care.
[2019-06-27 10:43] LABS: Basophils % 0.3 % (0.1-2.0); Eosinophils # 0.1 K/mm3 (0.0-0.4); Eosinophils % 0.8 % (0.1-12.0); Hematocrit 40.4 % (37.0-47.0); Hemoglobin 12.6 g/dL (12.2-16.2); Mean Corpuscular HGB Conc 31.3 g/dL (31.8-35.4); Mean Platelet Volume 16.2 fl (7.4-10.4); Monocytes # 0.3 K/mm3 (0.1-1.0); Monocytes % 3.3 % (1.7-9.3); Neutrophils # 6.7 K/mm3 (1.8-7.8); Neutrophils % 73.6 % (37.0-80.0); Platelet Count 51 K/mm3 (142-424); Red Blood Count 4.58 M/mm3 (4.20-5.40); Red Cell Distribution Width 16.2 % (11.5-17.5); White Blood Count 9.1 K/mm3 (4.8-10.8)
[2019-06-27 11:09] LABS: Anion Gap 8.1 mEq/L (5-15); Calcium 7.8 mg/dl (8.4-10.2)
--- NOTE | 2019-06-27 11:20 | Consult Report ---
*Admission Date: 06/22/19 <OsmaniNyla Manzo - 06/27/19 11:31> *Reason for consult:: ischemia foot <OsmaniNyla Anais - 06/27/19 11:31> *History of present illness: Patient was seen and evaluated by myself and BHUPINDER Keen. At bedside, patient is non-verbal. She is not complaining of pain or speaking at all. She is contracted on both UE and LE. <MichaelCourt - 06/27/19 12:14> Podiatry Consult for Ischemia of her Right foot, Patient is a 78-year-old female, a resident of [facility] that presented to the ED on 06/22/2019 with fever and a history of not eating or tolerating any liquids for the past couple of weeks. Patient is a DNR. Patient is not alert this morning, slow to arouse when speaking her name but then goes back to a lethargic state. Patient was admitted for having a UTI with sepsis and with organ dysfunction and septic shock and was admitted with IVF's and abx with fluid bolus. [facility] History I have reviewed the patient's past medical history: Yes Medical History: Reports:: Chronic Obstructive Pulmonary Disease (COPD), Deep V ein Thrombosis, Depression, Hyperlipidemia, Hypertension, Kidney Stones, Osteoporosis, Urinary Tract Infection Denies:: Cancer, Diabetes Mellitus Type 1, Diabetes Mellitus Type 2, Internal Pacemaker, MRSA *Have you ever received a pneumonia vaccine?: Yes *Have you received a flu vaccine this season?: Yes Other Medical History: Reports: Anemia, Cataracts, Hypothyroidism, Osteoporosis, Thyroid Disease Other Surgeries: Yes: Cardiac Catheterization. No: Pacemaker. Comment Only: No Previous Surgery (UNKNOWN IF PT HAS HAD ANY SURGERIES) Amputation: No Fractures: No - *Social History Smoking Status: Unknown if ever smoked Alcohol Intake: never *Occupational Status:: other Housing: group home Household Members: other *Travel in the last 8 weeks: None - Psychiatric History Pschychiatric History:: Reports:: Depression Family Hx:: Unable to obtain Review of Systems - Review of Systems Review of systems:: unable to obtain <Nyla Keen - 06/27/19 11:31> Review of Systems - Constitutional Reports weakness <Nyla Keen - 06/27/19 11:31> - Eyes Comments: Patient will open eyes when spoken to but will go back to being in a lethargic state. <Nyla Keen 06/27/19 11:31> - *Cardiovascular Reports foot swelling <Nyla Keen 06/27/19 11:31> - *Respiratory Denies cough <Nyla Keen 06/27/19 11:31> Comments: Scattered Rhonchi througout b/l lungs. <Nyla Keen 06/27/19 11:31> - *Gastrointestinal Comments: Hypoactive bowl sounds. <Nyla Keen 06/27/19 11:31> - *Genitourinary Denies difficulty urinating <Nyla Keen 06/27/19 11:31> - *Musculoskeletal Reports other <Nyla Keen 06/27/19 11:31> Comments: Patient unable to voice pain <Nyla Keen 06/27/19 11:31> - Integumentary/Breasts Reports nail changes, Reports lesions <Nyla Keen 06/27/19 11:31> Comments: Peeling of her dermis to the left dorsal foot, erythema splotches noted to top of foot, 2+ pedal edema B/L. Right Foot has deep purple toes and dorsal foot on the top and plantar surface of the metatarsals that extend upward toward the ankle Joint with purple splotches and bright red erythema. Decreased pedal pulses b/l. <Nyla Keen 06/27/19 11:31> - *Neurologic Reports other <Nyla Keen 06/27/19 14:48> Comments: Patient will Shirley much speaking her name but then returns back to lethargic state. <Nyla Keen 06/27/19 14:48> - Psychiatric Reports other <Nyla Keen 06/27/19 14:48> Comments: lethargic will arouse when spoke to for a brief moment. <Nyla Keen 06/27/19 14:48> [facility] History I have reviewed the patient's past medical history: Yes <Court Rodriguez - 06/27/19 12:14> Medical History: Reports:: Chronic Obstructive Pulmonary Disease (COPD), Deep Vein Thrombosis, Depression, Hyperlipidemia, Hypertension, Kidney Stones, Osteoporosis, Urinary Tract Infection Denies:: Cancer, Diabetes Mellitus Type 1, Diabetes Mellitus Type 2, Internal Pacemaker, MRSA <Nyla Keen 06/27/19 11:31> *Have you ever received a pneumonia vaccine?: Yes <Nyla Keen 06/27/19 11:31> *Have you received a flu vaccine this season?: Yes <Nyla Keen 06/27/19 11:31> Other Medical History: Reports: Anemia, Cataracts, Hypothyroidism, Osteoporosis, Thyroid Disease <Nyla Keen 06/27/19 11:31> Other Surgeries: Yes: Cardiac Catheterization. No: Pacemaker. Comment Only: No Previous Surgery (UNKNOWN IF PT HAS HAD ANY SURGERIES) <OsmaniNyla Manzo 06/27/19 11:31> Amputation: No <OsmaniNyla Manzo 06/27/19 11:31> Fractures: No <OsmaniNyla Manzo 06/27/19 11:31> - *Social History Smoking Status: Unknown if ever smoked <Nyla Keen 06/27/19 11:31> Alcohol Intake: never <OsmaniNyla Manzo 06/27/19 11:31> *Occupational Status:: other <OsmaniNyla Manzo 06/27/19 11:31> Housing: group home <OsmaniNyla Manzo 06/27/19 11:31> Household Members: other <Nyla Keen 06/27/19 11:31> *Travel in the last 8 weeks: None <OsmaniNyla Manzo 06/27/19 11:31> - Psychiatric History Pschychiatric History:: Reports:: Depression <OsmaniNyla Manzo 06/27/19 11:31> Family Hx:: Unable to obtain <MigueljerrodNyla Manzo 06/27/19 11:31> Meds Home Medications Medication Instructions Recorded Confirmed Type Acetaminophen 500 mg PO Q4HP PRN 04/22/17 06/22/19 History Lactulose [Lactulose 10gm/15ml 20 gm PO DAILYP PRN 04/22/17 06/22/19 History Oral Soln] Levothyroxine Sodium 75 mcg PO DAILY 04/22/17 06/22/19 History [Levothyroxine 50mcg (0.05mg) Tab] Loperamide HCl [Loperamide] 2 mg PO Q3HP PRN 04/22/17 06/22/19 History Sennosides/Docusate Sodium 2 each PO TID 03/24/18 06/22/19 History [Senna-S Tablet] Tramadol HCl [Tramadol 50mg 50 mg PO TID 03/24/18 06/22/19 History Tab] Docusate Sodium [Docusate Sod 250 mg PO BID 03/09/19 06/22/19 History Liquid 100mg/10mL udc] Mirtazapine [Remeron 15mg tablet] 15 mg PO HS 03/09/19 06/22/19 History Rivaroxaban [Xarelto 20mg Tablet*] 20 mg PO DAILY 03/09/19 06/22/19 History Omeprazole 20 mg PO DAILY 05/09/19 06/22/19 History <Court Rodriguez - 06/27/19 16:42> Allergies Allergy/AdvReac Type Severity Reaction Status Date / Time erythromycin base Allergy Unknown Verified 06/13/19 12:47 [From ERYTHROCIN] <Court Rodriguez - 06/27/19 16:42> Exam Vital signs and Labs for Last 24 Hours: Temp Pulse Resp BP Pulse Ox 98.0 F 95 H 28 H 126/51 L 94 L 06/27/19 08:00 06/27/19 08:00 06/27/19 08:00 06/27/19 08:00 06/27/19 08:00 Laboratory Results - last 24 hr 06/27/19 10:03: C-Reactive Protein 19.0 H 06/27/19 10:03: WBC 9.1, RBC 4.58, Hgb 12.6, Hct 40.4, MCV 88.0, MCH 27.5, MCHC 31.3 L, RDW 16.2, Plt Count 51 L D, MPV 16.2 H, Neut % (Auto) 73.6, Lymph % (Auto) 22.0, [place] % (Auto) 3.3, Eos % (Auto) 0.8, Baso % (Auto) 0.3, Neut # (Auto) 6.7, Lymph # (Auto) 2.0, [place] # (Auto) 0.3, Eos # (Auto) 0.1, Baso # (Auto) 0.0 06/27/19 10:03: Sodium 149 H, Potassium 3.1 L, Chloride 125 H, Carbon Dioxide 19 L D, Anion Gap 8.1, BUN 13 D, Creatinine 0.50 L D, Estimated Creat Clear 35, Estimated GFR 119, Est GFR ( Amer) 144 D, Glucose 113 H, Calcium 7.8 L <Court Rodriguez - 06/27/19 12:14> Temp Pulse Resp BP Pulse Ox 98.0 F 95 H 28 H 126/51 L 94 L 06/27/19 08:00 06/27/19 08:00 06/27/19 08:00 06/27/19 08:00 06/27/19 08:00 Laboratory Results - last 24 hr 06/27/19 10:03: WBC 9.1, RBC 4.58, Hgb 12.6, Hct 40.4, MCV 88.0, MCH 27.5, MCHC 31.3 L, RDW 16.2, Plt Count 51 L D, MPV 16.2 H, Neut % (Auto) 73.6, Lymph % (Auto) 22.0, [place] % (Auto) 3.3, Eos % (Auto) 0.8, Baso % (Auto) 0.3, Neut # (Auto) 6.7, Lymph # (Auto) 2.0, [place] # (Auto) 0.3, Eos # (Auto) 0.1, Baso # (Auto) 0.0 <Nyla Keen - 06/27/19 11:31> I & O for Last 24 hours: Intake & Output 06/25/19 06/26/19 06/27/19 06/28/19 11:59 11:59 11:59 11:59 Intake Total 2146 / 2146 2384 / 2384 2356 / 2356 Output Total 200 / 200 575 / 575 200 / 200 Balance 1946 / 1946 1809 / 1809 2156 / 2156 Weight 104 lb 5 oz 103 lb 7 oz 106 lb 3 oz <Court Rodriguez - 06/27/19 16:42> Intake & Output 06/24/19 06/25/19 06/26/19 06/27/19 23:59 23:59 23:59 23:59 Intake Total 1100 / 1100 1046 / 1046 3484 / 3484 1256 / 1256 Output Total 500 / 500 525 / 525 250 / 250 200 / 200 Balance 600 / 600 521 / 521 3234 / 3234 1056 / 1056 Weight 98 lb 3 oz 104 lb 5 oz 103 lb 7 oz 106 lb 3 oz <Nyla Keen L - 06/27/19 11:31> Microbiology Reports for the Last 24 Hours: Microbiology 06/22/19 12:15 Blood Blood Culture - Preliminary <Court Rodriguez - 06/27/19 16:42> Microbiology 06/22/19 12:15 Blood Blood Culture - Preliminary <Nyla Keen L - 06/27/19 11:31> - Constitutional obtunded <Nyla Keen L - 06/27/19 14:48> - *Routine HEENT Exam Head: Present: normocephalic <Nyla Keen L - 06/27/19 14:48> Eye: Present: normal accommodation <Nyla Keen L - 06/27/19 14:48> ENT: Present: mucous membranes moist <Nyla Keen L - 06/27/19 14:48> - *Routine Neck Exam Present: trachea midline. Absent: JVD <MigueleSelenaNyla L - 06/27/19 14:48> - *Routine Respiratory Exam Present: rhonchi. Absent: accessory muscle use, respiratory distress <NeouzSelena elderNyla L - 06/27/19 14:48> - *Routine Cardiovascular Exam Present: RRR. Absent: JVD <NeouzeSelenaYnla L - 06/27/19 14:48> - *Routine Abdominal Exam Present: soft. Absent: normoactive bowel sounds <NeouzjerrodNyla L - 06/27/19 14:48> - *Routine Extremities Exam Present: edema. Absent: normal capillary refill <Nyla Keen - 06/27/19 14:48> Comments: 2+ bilateral pedal edema noted, pulses present but weakly palpable, PT/DP pulses dopplered still very sluggish very weak bilaterally. Right dorsal foot, skin is purple discoloration to the midfoot extending proximal to the ankle. Spotty erythema noted to midfoot extending to the ankle as well. Foot has 2+ pitting edema, splotchy erythema and peeling of the epidermis noted to the dorsal midfoot <Nyla Keen - 06/27/19 14:48> - *Routine Skin Exam Present: erythema <Nyla Keen - 06/27/19 14:48> - *Routine Neurological Exam Present: altered mental status <Nyla Keen - 06/27/19 14:48> - Detailed Lower Extremity Exam Top foot image: 1 - Right mid-foot and all the toes and metatarsal area plantar surface, but dark purple extends upward toward the proximal ankle, with bright red erythema splotching on the ankle and slightly above the ankle, edema, decreased capillary refill, decreased pedal pulses DP/PT, dopplerable but remains weak. 2 - Left mid-foot splotchy erythema, some peeling epidermis, 2+pedal edema, decreased capillary refill, decreased pedal pulses DP/PT, dopplerable but remains weak. <Nyla Keen - 06/27/19 14:48> Bottom foot image: 1 - Right foot plantar blister. Clear drainage, send for wound culture. No POP. No ascending cellulitis noted. Ischemic changes with no deep ulcerations or tracking noted. Non palpable pedal pulses and delayed CFT. <Court Rodriguez - 06/27/19 16:42> Results - Labs Result Diagrams: 06/27/19 10:03 06/27/19 10:03 <MichaelCourt - 06/27/19 16:42> Labs: Abnormal lab results 06/27/19 06/27/19 06/27/19 Range/Units 10:03 10:03 10:03 MCHC 31.3 L (31.8-35.4) g/dL Plt Count 51 L D (142-424) K/mm3 MPV 16.2 H (7.4-10.4) fl Sodium 149 H (136-145) mmol/L Potassium 3.1 L (3.5-5.1) mmoL/L Chloride 125 H (98-107) mmol/L Carbon Dioxide 19 L D (22.0-30.0) mmol/L Creatinine 0.50 L D (0.52-1.04) mg/dl Glucose 113 H (74-100) mg/dl Calcium 7.8 L (8.4-10.2) mg/dl C-Reactive Protein 19.0 H (0-4) mg/L H & H 06/22/19 06/23/19 06/24/19 Range/Units 12:15 05:45 08:23 Hgb 16.0 14.4 12.9 (12.2-16.2) g/dL Hct 54.9 H 48.0 H 44.0 (37.0-47.0) % 06/25/19 06/27/19 Range/Units 06:28 10:03 Hgb 11.3 L D 12.6 (12.2-16.2) g/dL Hct 36.7 L 40.4 (37.0-47.0) % All other labs normal. <Court Rodriguez - 06/27/19 16:42> Abnormal lab results 06/27/19 Range/Units 10:03 MCHC 31.3 L (31.8-35.4) g/dL Plt Count 51 L D (142-424) K/mm3 MPV 16.2 H (7.4-10.4) fl H & H 06/22/19 06/23/19 06/24/19 Range/Units 12:15 05:45 08:23 Hgb 16.0 14.4 12.9 (12.2-16.2) g/dL Hct 54.9 H 48.0 H 44.0 (37.0-47.0) % 06/25/19 06/27/19 Range/Units 06:28 10:03 Hgb 11.3 L D 12.6 (12.2-16.2) g/dL Hct 36.7 L 40.4 (37.0-47.0) % All other labs normal. <Nyla Keen - 06/27/19 11:31> - Diagnostic results Ankle/Foot x-ray: report reviewed, image reviewed <MichaelCourt - 06/27/19 16:42> Assessment and Plan (1) UTI (urinary tract infection) Current visit: Yes Status: Acute Qualifiers: Urinary tract infection type: site unspecified Hematuria presence: without hematuria Qualified Code(s): N39.0 - Urinary tract infection, site not spec ified Category: Medical Code(s): N39.0 - Urinary tract infection, site not specified (2) Sepsis with acute organ dysfunction and septic shock Current visit: Yes Status: Acute Qualifiers: Sepsis type: sepsis due to unspecified organism Severe sepsis acute organ dysfunction type: acute renal failure Acute renal failure type: unspecified Qualified Code(s): A41.9 - Sepsis, unspecified organism; R65.21 - Severe sepsis with septic shock; N17.9 - Acute kidney failure, unspecified Category: Medical Code(s): A41.9 - Sepsis, unspecified organism; R65.21 - Severe sepsis with septic shock (3) Low body mass index (BMI) Current visit: Yes Status: Acute Category: Medical (4) JAXON (acute kidney injury) Current visit: Yes Status: Acute Category: Medical Code(s): N17.9 - Acute kidney failure, unspecified (5) Hypernatremia Current visit: Yes Status: Acute Category: Medical Code(s): E87.0 - Hyperosmolality and hypernatremia (6) Transaminitis Current visit: Yes Status: Acute Category: Medical Code(s): R74.0 - Nonspecific elevation of levels of transaminase and lactic acid dehydrogenase [LDH] (7) Hypothyroidism Current visit: Yes Status: Acute Qualifiers: Hypothyroidism type: acquired Qualified Code(s): E03.9 - Hypothyroidism, unspecified Category: Medical Code(s): E03.9 - Hypothyroidism, unspecified (8) Lower extremity arterial insufficiency, severe, right Current visit: Yes Status: Acute Category: Medical Code(s): I73.9 - Peripheral vascular disease, unspecified (9) Thrombocytopenia Current visit: Yes Status: Acute Category: Medical Code(s): D69.6 - Thrombocytopenia, unspecified (10) ESBL (extended spectrum beta-lactamase) producing bacteria infection Current visit: Yes Status: Acute Category: Medical Code(s): A49.9 - Bacterial infection, unspecified; Z16.12 - Extended spectrum beta lactamase (ESBL) resistance (11) UTI due to extended-spectrum beta lactamase (ESBL) producing Escherichia coli Current visit: Yes Status: Acute Category: Medical Code(s): N39.0 - Urinary tract infection, site not specified; B96.29 - Other Escherichia coli [E. coli] as the cause of diseases classified elsewhere; Z16.12 - Extended spectrum beta lactamase (ESBL) resistance (12) Bacterial infection due to Morganella morganii Current visit: Yes Status: Acute Category: Medical Code(s): A49.8 - Other bacterial infections of unspecified site (13) Ischemia of both lower extremities Current visit: Yes Status: Acute Category: Medical Code(s): I99.8 - Other disorder of circulatory system (14) Decreased pedal pulses Start date: 06/27/19 Current visit: Yes Status: Acute Category: Medical Code(s): R09.89 - Other specified symptoms and signs involving the circulatory and respiratory systems (15) Other specified symptoms and signs involving the circulatory and r espiratory systems Start date: 06/27/19 Current visit: Yes Status: Acute Category: Medical Code(s): R09.89 - Other specified symptoms and signs involving the circulatory and respiratory systems (16) Lower extremity edema Start date: 06/27/19 Current visit: Yes Status: Acute Category: Medical Code(s): R60.0 - Local ized edema (17) Nail dystrophy Start date: 06/27/19 Current visit: Yes Status: Acute Category: Medical Code(s): L60.3 - Nail dystrophy (18) Onychogryphosis Start date: 06/27/19 Current visit: Yes Status: Acute Category: Medical Code(s): L60.2 - Onychogryphosis (19) Blister of foot, right Start date: 06/27/19 Current visit: Yes Status: Acute Category: Medical Code(s): S90.821A - Blister (nonthermal), right foot, initial encounter <Nyla Keen - 06/27/19 13:26> (1) UTI (urinary tract infection) Current visit: Yes Status: Acute Qualifiers: Urinary tract infection type: site unspecified Hematuria presence: without hematuria Qualified Code(s): N39.0 - Urinary tract infection, site not specified Category: Medical Code(s): N39.0 - Urinary tract infection, site not specified (2) Sepsis with acute organ dysfunction and septic shock Current visit: Yes Status: Acute Qualifiers: Sepsis type: sepsis due to unspecified organism Severe sepsis acute organ dysfunction type: acute renal failure Acute renal failure type: unspecified Qualified Code(s): A41.9 - Sepsis, unspecified organism; R65.21 - Severe sepsis with septic shock; N17.9 - Acute kidney failure, unspecified Category: Medical Code(s): A41.9 - Sepsis, unspecified organism; R65.21 - Severe sepsis with septic shock (3) Low body mass index (BMI) Current visit: Yes Status: Acute Category: Medical (4) JAXON (acute kidney injury) Current visit: Yes Status: Acute Category: Medical Code(s): N17.9 - Acute kidney failure, unspecified (5) Hypernatremia Current visit: Yes Status: Acute Category: Medical Code(s): E87.0 - Hyperosmolality and hypernatremia (6) Transaminitis Current visit: Yes Status: Acute Category: Medical Code(s): R74.0 - Nonspecific elevation of levels of transaminase and lactic acid dehydrogenase [LDH] (7) Hypothyroidism Current visit: Yes Status: Acute Qualifiers: Hypothyroidism type: acquired Qualified Code(s): E03.9 - Hypothyroidism, unspecified Category: Medical Code(s): E03.9 - Hypothyroidism, unspecified (8) Lower extremity arterial insufficiency, severe, right Current visit: Yes Status: Acute Category: Medical Code(s): I73.9 - Peripheral vascular disease, unspecified (9) Thrombocytopenia Current visit: Yes Status: Acute Category: Medical Code(s): D69.6 - Thrombocytopenia, unspecified (10) ESBL (extended spectrum beta-lactamase) producing bacteria infection Current visit: Yes Status: Acute Category: Medical Code(s): A49.9 - Bacterial infection, unspecified; Z16.12 - Extended spectrum beta lactamase (ESBL) resistance (11) UTI due to extended-spectrum beta lactamase (ESBL) producing Escherichia coli Current visit: Yes Status: Acute Category: Medical Code(s): N39.0 - Urinary tract infection, site not specified; B96.29 - Other Escherichia coli [E. coli] as the cause of diseases classified elsewhere; Z16.12 - Extended spectrum beta lactamase (ESBL) resistance (12) Bacterial infection due to Morganella morganii Current visit: Yes Status: Acute Category: Medical Code(s): A49.8 - Other bacterial infections of unspecified site (13) Ischemia of both lower extremities Current visit: Yes Status: Acute Category: Medical Code(s): I99.8 - Other disorder of circulatory system (14) Onychogryphosis Current visit: Yes Status: Acute Category: Medical Code(s): L60.2 - Onycho gryphosis (15) Nail dystrophy Current visit: Yes Status: Acute Category: Medical Code(s): L60.3 - Nail dystrophy (16) Blister (nonthermal), right foot, initial encounter Current visit: Yes Status: Acute Category: Medical Code(s): S90.821A - Blister (nonthermal), right foot, initial encounter <Court Rodriguez - 06/27/19 16:42> - Assessment and plan all Dx Assessment and Plan for all problems:: Physician Attestation I was present during all of the critical components of the consult. [facility] cardiology did see the patient with us. The patient was seen, evaluated and examined by me. I have read the office note that was documented by the REPORT MANAGER and agree with the documentation. US Arterial vascular study: Findings: RT YURIDIA:1.20 LT YURIDIA:1.31 TBI:UNABLE TO OBTAIN NOAH DAMPENED WAVEFORMS SEEN ON THE RIGHT PULSES DECREASED NOAH Patient's toenails trimmed as above. Right plantar foot cleansed and utilizing an 11' blade blister popped. No purulence expressed. DSD applied. At this time, patient is not a surgical candidate. She is non-verbal and occasionally opens her eyes. She is significantly contracted. Nails were performed out of medical necessity to the length and to avoid her toenails digging into the skin and causing wounds. There is definite concern over heali ng potential due to the ischemic foot. Patient does not currently have open ulcers. Unless it becomes an emergency I would not do an amputation, she will likely not be able to heal it. I agree with cardiology and recommend palliative care. <MichaelCourt - 06/27/19 16:42> Plan: 1. Decreased pedal pulses R09.89 Plan Skin Changes: Right foot/ purple toes and mid-foot, no capilallary refill on this side Check vascular studies: YURIDIA/toe pressures to evaluate for new skin changes; Patient is to have a STAT YURIDIA testing done this morning. 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 Nails were debrided xs 10 utilizing manual debridement with a nail nipper. 2. Patient tolerated the procedure well. 3 Recommend the use of sondra board to file nails down and keep thinner. 4 Follow up in 3 months or as needed. 5. Patient should call me sooner if any questions or concerns arise 3. Blister to the right foot plantar surface, was deroofed but left intact, culture was taken and sent to lab. Will be treated accordingly. 4. Site was redressed with a DSD, 4x4 gauze, omar and tape. This will need to be changed daily per nursing. 4. No plans for surgery at this present time 5. Keep legs elevated on pillows to reduce edema. <Nyla Keen - 06/27/19 14:48>
[2019-06-28 07:29] LABS: Basophils % 0.3 % (0.1-2.0); Eosinophils # 0.1 K/mm3 (0.0-0.4); Eosinophils % 1.2 % (0.1-12.0); Hematocrit 40.7 % (37.0-47.0); Hemoglobin 12.8 g/dL (12.2-16.2); Lymphocytes # 1.8 K/mm3 (0.7-4.5); Lymphocytes % 21.6 % (10-50); Mean Corpuscular HGB Conc 31.4 g/dL (31.8-35.4); Mean Corpuscular Volume 87.8 fl (81-99); Monocytes # 0.3 K/mm3 (0.1-1.0); Monocytes % 3.8 % (1.7-9.3); Neutrophils # 5.9 K/mm3 (1.8-7.8); Neutrophils % 73.1 % (37.0-80.0); Platelet Count 57 K/mm3 (142-424); Red Blood Count 4.64 M/mm3 (4.20-5.40); Red Cell Distribution Width 16.1 % (11.5-17.5); White Blood Count 8.1 K/mm3 (4.8-10.8)
[2019-06-28 07:44] LABS: Anion Gap 6.3 mEq/L (5-15); Calcium 7.3 mg/dl (8.4-10.2)
--- NOTE | 2019-06-28 08:24 | Progress Note ---
Internal Medicine - PN: Subj *Date: 06/28/19 *Time: 11:50 Interval history: 78 YOF lying in bed contractions noted bilateral upper extremities and bilateral lower extremities. She will open eyes when talked to, will not respond. Currently awaiting to hear from guardian regarding hospice status and placement. Exam Vital signs and Labs for Last 24 Hours: Temp Pulse Resp BP Pulse Ox 97.6 F 61 17 131/68 98 06/28/19 04:00 06/28/19 04:00 06/28/19 04:00 06/28/19 04:00 06/28/19 04:00 Laboratory Results - last 24 hr 06/27/19 10:03: C-Reactive Protein 19.0 H 06/27/19 10:03: WBC 9.1, RBC 4.58, Hgb 12.6, Hct 40.4, MCV 88.0, MCH 27.5, MCHC 31.3 L, RDW 16.2, Plt Count 51 L D, MPV 16.2 H, Neut % (Auto) 73.6, Lymph % (Auto) 22.0, [place] % (Auto) 3.3, Eos % (Auto) 0.8, Baso % (Auto) 0.3, Neut # (Auto) 6.7, Lymph # (Auto) 2.0, [place] # (Auto) 0.3, Eos # (Auto) 0.1, Baso # (Auto) 0.0 06/27/19 10:03: Sodium 149 H, Potassium 3.1 L, Chloride 125 H, Carbon Dioxide 19 L D, Anion Gap 8.1, BUN 13 D, Creatinine 0.50 L D, Estimated Creat Clear 35, Estimated GFR 119, Est GFR ( Amer) 144 D, Glucose 113 H, Calcium 7.8 L 06/28/19 06:52: WBC 8.1, RBC 4.64, Hgb 12.8, Hct 40.7, MCV 87.8, MCH 27.6, MCHC 31.4 L, RDW 16.1, Plt Count 57 L, MPV 14.0 H, Neut % (Auto) 73.1, Lymph % (Auto) 21.6, [place] % (Auto) 3.8, Eos % (Auto) 1.2, Baso % (Auto) 0.3, Neut # (Auto) 5.9, Lymph # (Auto) 1.8, [place] # (Auto) 0.3, Eos # (Auto) 0.1, Baso # (Auto) 0.0 06/28/19 06:52: Sodium 145, Potassium 3.3 L, Chloride 121 H, Carbon Dioxide 21 L , Anion Gap 6.3, BUN 6 L D, Creatinine 0.40 L, Estimated Creat Clear 35, Estimated GFR 154, Est GFR ( Amer) 187 D, Glucose 121 H, Calcium 7.3 L I & O for Last 24 hours: Intake & Output 06/25/19 06/26/19 06/27/19 06/28/19 23:59 23:59 23:59 23:59 Intake Total 1046 / 3430 3484 / 3484 2924.667 / 2924.667 1077 / 1077 Output Total 525 / 525 250 / 250 200 / 200 800 / 800 Balance 521 / 2905 3234 / 3234 2724.667 / 2724.667 277 / 277 Weight 104 lb 5 oz 103 lb 7 oz 105 lb 13.15 oz 105 lb 13.15 oz Microbiology Reports for the Last 24 Hours: Microbiology 06/22/19 12:15 Blood Blood Culture - Preliminary 06/22/19 17:09 Blood Blood Culture - Final NO GROWTH AFTER 5 DAYS 06/27/19 10:45 Foot,Right Gram Stain - Final - Constitutional no acute distress - *Routine HEENT Exam Head: Present: normocephalic ENT: Present: mucous membranes dry - *Routine Neck Exam Present: trachea midline. Absent: JVD, tracheal deviation - *Routine Respiratory Exam Present: rhonchi. Absent: accessory muscle use - *Routine Cardiovascular Exam Present: RRR - *Routine Abdominal Exam Present: soft, normoactive bowel sounds. Absent: firm - *Routine Extremities Exam Present: edema Comments: Bilat Pedal - *Routine Skin Exam Present: erythema Comments: Left foot w/ 2 small discolored areas on great toe, multiple scabbed areas on foot and ankle. Right foot purple extends to ankle - *Routine Neurological Exam Present: alert - Routine Psychiatric Exam Present: unable to assess Assessment and Plan (1) UTI (urinary tract infection) Current visit: Yes Status: Acute Qualifiers: Urinary tract infection type: site unspecified Hematuria presence: without hematuria Qualified Code(s): N39.0 - Urinary tract infection, site not specified Category: Medical Code(s): N39.0 - Urinary tract infection, site not specified (2) Sepsis with acute organ dysfunction and septic shock Current visit: Yes Status: Acute Qualifiers: Sepsis type: sepsis due to unspecified organism Severe sepsis acute organ dysfunction type: acute renal failure Acute renal failure type: unspecified Qualified Code(s): A41.9 - Sepsis, unspecified organism; R65.21 - Severe sepsis with septic shock; N17.9 - Acute kidney failure, unspecified Category: Medical Code(s): A41.9 - Sepsis, unspecified organism; R65.21 - Severe sepsis with septic shock (3) Low body mass index (BMI) Current visit: Yes Status: Acute Category: Medical (4) JAXON (acute kidney injury) Current visit: Yes Status: Acute Category: Medical Code(s): N17.9 - Acute kidney failure, unspecified (5) Hypernatremia Current visit: Yes Status: Acute Category: Medical Code(s): E87.0 - Hyperosmolality and hypernatremia (6) Transaminitis Current visit: Yes Status: Acute Category: Medical Code(s): R74.0 - Nonspecific elevation of levels of transaminase and lactic acid dehydrogenase [LDH] (7) Hypothyroidism Current visit: Yes Status: Acute Qualifiers: Hypothyroidism type: acquired Qualified Code(s): E03.9 - Hypothyroidism, unspecified Category: Medical Code(s): E03.9 - Hypothyroidism, unspecified (8) Lower extremity arterial insufficiency, severe, right Current visit: Yes Status: Acute Category: Medical Code(s): I73.9 - Per ipheral vascular disease, unspecified (9) Thrombocytopenia Current visit: Yes Status: Acute Category: Medical Code(s): D69.6 - Thrombocytopenia, unspecified (10) ESBL (extended spectrum beta-lactamase) producing bacteria infection Current visit: Yes Status: Acute Category: Medical Code(s): A49.9 - Bacterial infection, unspecified; Z16.12 - Extended spectrum beta lactamase (ESBL) resistance (11) UTI due to extended-spectrum beta lactamase (ESBL) producing Escherichia coli Current visit: Yes Status: Acute Category: Medical Code(s): N39.0 - Urinary tract infection, site not specified; B96.29 - Other Escherichia coli [E. coli] as the cause of diseases classified elsewhere; Z16.12 - Extended spectrum beta lactamase (ESBL) resistance (12) Bacterial infection due to Morganella morganii Current visit: Yes Status: Acute Category: Medical Code(s): A49.8 - Other bacterial infections of unspecified site (13) Ischemia of both lower extremities Current visit: Yes Status: Acute Category: Medical Code(s): I99.8 - Other disorder of circulatory system (14) Onychogryphosis Start date: 06/27/19 Current visit: Yes Status: Acute Category: Medical Code(s): L60.2 - Onychogryphosis (15) Nail dystrophy Start date: 06/27/19 Current visit: Yes Status: Acute Category: Medical Code(s): L60.3 - Nail dystrophy (16) Blister (nonthermal), right foot, initial encounter Current visit: Yes Status: Acute Category: Medical Code(s): S90.821A - Blister (nonthermal), right foot, initial encounter - Assessment and plan all Dx Assessment and Plan for all problems:: Rounded with Dr. Mendenhall, all orders per Dr. Mendenhall 1. Awaiting contact with guardian regarding hospice and placement Podiatry has seen and recommends: Patient's toenails trimmed as above. Right plantar foot cleansed and utilizing an 11' blade blister popped. No purulence expressed. DSD applied. At this time, patient is not a surgical candidate. She is non-verbal and occasionally opens her eyes. She is significantly contracted. Nails were performed out of medical necessity to the length and to avoid her toenails digging into the skin and causing wounds. There is definite concern over healing potential due to the ischemic foot. Patient does not currently have open ulcers. Unless it becomes an emergency I would not do an amputation, she will likely not be able to heal it. I agree with cardiology and recommend palliative care (Per Dr. Rodrigeuz) Cardiology has seen and recommends: 1. Discussed with Dr. Woods who is covering for Dr. Yarbrough. Due to the patient's contractures, she would not be a candidate for lower extremity angiogram. In discussing the patient's physical findings with Dr. Woods, he suspects that she has had some sort of embolic event (such as calcium emboli or plaque rupture) despite anticoagulation therapy with Xarelto. Preliminary ABIs would suggest extensive calcification of legs with falsely elevated readings. Patient's severe thrombocytopenia prohibits treatment with antiplatelet therapy but would recommend resuming anticoagulation therapy (Xarelto 20 mg daily as long as her creatinine clearance >51). 2. Unfortunately, Nothing further to add/recommend except palliative care. (Per JANEE Gregory)
--- NOTE | 2019-06-28 10:35 | Progress Note ---
Internal Medicine - PN: Subj *Date: 06/28/19 *Time: 10:35 Exam Vital signs and Labs for Last 24 Hours: Temp Pulse Resp BP Pulse Ox 97.1 F L 67 28 H 121/73 100 06/28/19 08:00 06/28/19 08:00 06/28/19 08:00 06/28/19 08:00 06/28/19 08:00 Laboratory Results - last 24 hr 06/27/19 10:03: C-Reactive Protein 19.0 H 06/27/19 10:03: WBC 9.1, RBC 4.58, Hgb 12.6, Hct 40.4, MCV 88.0, MCH 27.5, MCHC 31.3 L, RDW 16.2, Plt Count 51 L D, MPV 16.2 H, Neut % (Auto) 73.6, Lymph % (Auto) 22.0, [place] % (Auto) 3.3, Eos % (Auto) 0.8, Baso % (Auto) 0.3, Neut # (Auto) 6.7, Lymph # (Auto) 2.0, [place] # (Auto) 0.3, Eos # (Auto) 0.1, Baso # (Auto) 0.0 06/27/19 10:03: Sodium 149 H, Potassium 3.1 L, Chloride 125 H, Carbon Dioxide 19 L D, Anion Gap 8.1, BUN 13 D, Creatinine 0.50 L D, Estimated Creat Clear 35, Estimated GFR 119, Est GFR ( Amer) 144 D, Glucose 113 H, Calcium 7.8 L 06/28/19 06:52: WBC 8.1, RBC 4.64, Hgb 12.8, Hct 40.7, MCV 87.8, MCH 27.6, MCHC 31.4 L, RDW 16.1, Plt Count 57 L, MPV 14.0 H, Neut % (Auto) 73.1, Lymph % (Auto) 21.6, [place] % (Auto) 3.8, Eos % (Auto) 1.2, Baso % (Auto) 0.3, Neut # (Auto) 5.9, Lymph # (Auto) 1.8, [place] # (Auto) 0.3, Eos # (Auto) 0.1, Baso # (Auto) 0.0 06/28/19 06:52: Sodium 145, Potassium 3.3 L, Chloride 121 H, Carbon Dioxide 21 L , Anion Gap 6.3, BUN 6 L D, Creatinine 0.40 L, Estimated Creat Clear 35, Estimated GFR 154, Est GFR ( Amer) 187 D, Glucose 121 H, Calcium 7.3 L I & O for Last 24 hours: Intake & Output 06/25/19 06/26/19 06/27/19 06/28/19 23:59 23:59 23:59 23:59 Intake Total 1046 / 3430 3484 / 3484 2924.667 / 2924.667 1077 / 1077 Output Total 525 / 525 250 / 250 200 / 200 800 / 800 Balance 521 / 2905 3234 / 3234 2724.667 / 2724.667 277 / 277 Weight 47.315 kg 46.918 kg 48 kg 48 kg Microbiology Reports for the Last 24 Hours: Microbiology 06/22/19 12:15 Blood Blood Culture - Preliminary 06/22/19 17:09 Blood Blood Culture - Final NO GROWTH AFTER 5 DAYS 06/27/19 10:45 Foot,Right Gram Stain - Final Assessment and Plan (1) UTI (urinary tract infection) Current visit: Yes Status: Acute Qualifiers: Urinary tract infection type: site unspecified Hematuria presence: without hematuria Qualified Code(s): N39.0 - Urinary tract infection, site not specified Category: Medical Code(s): N39.0 - Urinary tract infection, site not specified (2) Sepsis with acute organ dysfunction and septic shock Current visit: Yes Status: Acute Qualifiers: Sepsis type: sepsis due to unspecified organism Severe sepsis acute organ dysfunction type: acute renal failure Acute renal failure type: unspecified Qualified Code(s): A41.9 - Sepsis, unspecified organism; R65.21 - Severe sepsis with septic shock; N17.9 - Acute kidney failure, unspecified Category: Medical Code(s): A41.9 - Sepsis, unspecified organism; R65.21 - Severe sepsis with septic shock (3) Low body mass index (BMI) Current visit: Yes Status: Acute Category: Medical (4) JAXON (acute kidney injury) Current visit: Yes Status: Acute Category: Medical Code(s): N17.9 - Acute kidney failure, unspecified (5) Hypernatremia Current visit: Yes Status: Acute Category: Medical Code(s): E87.0 - Hyperosmolality and hypernatremia (6) Transaminitis Current visit: Yes Status: Acute Category: Medical Code(s): R74.0 - Nonspecific elevation of levels of transaminase and lactic acid dehydrogenase [LDH] (7) Hypothyroidism Current visit: Yes Status: Acute Qualifiers: Hypothyroidism type: acquired Qualified Code(s): E03.9 - Hypothyroidism, unspecified Category: Medical Code(s): E03.9 - Hypothyroidism, unspecified (8) Lower extremity arterial insufficiency, severe, right Current visit: Yes Status: Acute Category: Medical Code(s): I73.9 - Perip heral vascular disease, unspecified (9) Thrombocytopenia Current visit: Yes Status: Acute Category: Medical Code(s): D69.6 - Thrombocytopenia, unspecified (10) ESBL (extended spectrum beta-lactamase) producing bacteria infection Current visit: Yes Status: Acute Category: Medical Code(s): A49.9 - Bacterial infection, unspecified; Z16.12 - Extended spectrum beta lactamase (ESBL) resistance (11) UTI due to extended-spectrum beta lactamase (ESBL) producing Escherichia coli Current visit: Yes Status: Acute Category: Medical Code(s): N39.0 - Urinary tract infection, site not specified; B96.29 - Other Escherichia coli [E. coli] as the cause of diseases classified elsewhere; Z16.12 - Extended spectrum beta lactamase (ESBL) resistance (12) Bacterial infection due to Morganella morganii Current visit: Yes Status: Acute Category: Medical Code(s): A49.8 - Other bacterial infections of unspecified site (13) Ischemia of both lower extremities Current visit: Yes Status: Acute Category: Medical Code(s): I99.8 - Other disorder of circulatory system (14) Onychogryphosis Start date: 06/27/19 Current visit: Yes Status: Acute Category: Medical Code(s): L60.2 - Onychogryphosis (15) Nail dystrophy Start date: 06/27/19 Current visit: Yes Status: Acute Category: Medical Code(s): L60.3 - Nail dystrophy (16) Blister (nonthermal), right foot, initial encounter Current visit: Yes Status: Acute Category: Medical Code(s): S90.821A - Blister (nonthermal), right foot, initial encounter The patient's infection will respond to the chosen ABx?: Yes Is the patient receiving the right drug, dose, and route?: Yes Could a more targeted ABx be ordered?: No
--- NOTE | 2019-06-29 08:46 | Discharge Summary ---
General - General Admission date:: 06/22/19 Discharge date: 06/29/19 HPI HPI: this pt was sent from [facility] with dec po intake and change in mental status - ed per squad pt resident of [facility] reports pt not eating or drinking x 2 weeks states pt is usually responsive and verbal. pt unresponsive resp even and easy. feet and lower legs mottled 78-year-old female presents to the ED with fever and a history of not eating or tolerating any liquids for the past couple of weeks. Patient is a DNR. Unknown if she has had any nausea or vomiting unknown if she has any pain patient does not really localize pain very well no other history really was obtained only history from EMS [facility] pt was seen in the ed and was found to have uti with sepsis and with organ dysfunction and septic shock and was admitted with ivf and abx with fluid bolus Hospital Course Hospital Course: Abnormal Labs 06/22/19 06/22/19 06/22/19 10:08 12:15 12:15 WBC 18.4 H RBC 5.82 H Hgb Hct 54.9 H MCHC 29.2 L Plt Count 101 L MPV 14.4 H Neut % (Auto) 80.7 H Laurens % (Auto) Neut # (Auto) 14.9 H Lymph # (Auto) Neutrophils % (Manual) 79 H Monocytes % (Manual) Sodium 168 H* Potassium Chloride 131 H Carbon Dioxide 21 L Anion Gap 20.9 H BUN 98 H Creatinine 3.70 H Estimated GFR 12 L* Est GFR ( Amer) 14 L* Glucose 127 H Lactate Calcium AST 406 H* ALT 178 H C-Reactive Protein Globulin 3.3 H Ur Leukocyte Esterase 2+ A 06/22/19 06/22/19 06/22/19 12:15 17:09 20:30 WBC RBC Hgb Hct MCHC Plt Count MPV Neut % (Auto) Laurens % (Auto) Neut # (Auto) Lymph # (Auto) Neutrophils % (Manual) Monocytes % (Manual) Sodium Potassium Chloride Carbon Dioxide Anion Gap BUN Creatinine Estimated GFR Est GFR ( Amer) Glucose Lactate 6.7 H 2.8 H 6.7 H Calcium AST ALT C-Reactive Protein Globulin Ur Leukocyte Esterase 06/23/19 06/23/19 06/24/19 05:45 05:45 08:23 WBC 17.4 H 13.2 H RBC Hgb Hct 48.0 H MCHC 29.9 L 29.3 L Plt Count 41 L* D 41 L* MPV 13.8 H 13.9 H Neut % (Auto) 81.4 H Laurens % (Auto) 1.3 L Neut # (Auto) 12.4 H 10.7 H Lymph # (Auto) 4.7 H Neutrophils % (Manual) Monocytes % (Manual) 1 L Sodium 158 H* Potassium Chloride 129 H Carbon Dioxide 15 L D Anion Gap 18.2 H BUN 105 H* Creatinine 3.50 H Estimated GFR 13 L* Est GFR ( Amer) 15 L* Glucose 121 H Lactate Calcium 7.7 L D AST ALT C-Reactive Protein Globulin Ur Leukocyte Esterase 06/24/19 06/25/19 06/25/19 08:23 06:28 06:28 WBC RBC 4.04 L Hgb 11.3 L D Hct 36.7 L MCHC 30.1 L Plt Count 40 L* MPV 12.0 H Neut % (Auto) Laurens % (Auto) Neut # (Auto) Lymph # (Auto) Neutrophils % (Manual) Monocytes % (Manual) Sodium 156 H* 157 H* Potassium Chloride 129 H 130 H Carbon Dioxide 16 L 15 L Anion Gap 15.8 H BUN 74 H D 48 H D Creatinine 1.90 H D Estimated GFR 26 L 54 L Est GFR ( Amer) 31 L D Glucose 109 H Lactate Calcium 7.7 L 7.8 L AST ALT C-Reactive Protein Globulin Ur Leukocyte Esterase 06/27/19 06/27/19 06/27/19 10:03 10:03 10:03 WBC RBC Hgb Hct MCHC 31.3 L Plt Count 51 L D MPV 16.2 H Neut % (Auto) Laurens % (Auto) Neut # (Auto) Lymph # (Auto) Neutrophils % (Manual) Monocytes % (Manual) Sodium 149 H Potassium 3.1 L Chloride 125 H Carbon Dioxide 19 L D Anion Gap BUN Creatinine 0.50 L D Estimated GFR Est GFR ( Amer) Glucose 113 H Lactate Calcium 7.8 L AST ALT C-Reactive Protein 19.0 H Globulin Ur Leukocyte Esterase 06/28/19 06/28/19 06:52 06:52 WBC RBC Hgb Hct MCHC 31.4 L Plt Count 57 L MPV 14.0 H Neut % (Auto) Laurens % (Auto) Neut # (Auto) Lymph # (Auto) Neutrophils % (Manual) Monocytes % (Manual) Sodium Potassium 3.3 L Chloride 121 H Carbon Dioxide 21 L Anion Gap BUN 6 L D Creatinine 0.40 L Estimated GFR Est GFR ( Amer) Glucose 121 H Lactate Calcium 7.3 L AST ALT C-Reactive Protein Globulin Ur Leukocyte Esterase chest x ray:FINDINGS: Normal heart size. There is prominent thoracic aorta with mediastinal widening consistent with aortic ectasia/tortuosity. This does not appear significantly changed. The lungs are clear. There is thoracic scoliosis convex left. There are numerous bilateral renal calculi The lungs are clear without infiltrates, suspicious nodules, or pleural effusions. No acute bony abnormalities. IMPRESSION: 1. No acute pulmonary findings. 2. Tortuosity/ectasia of the thoracic aorta 3. Bilateral renal calculi TBI:UNABLE TO OBTAIN NOAH DAMPENED WAVEFORMS SEEN ON THE RIGHT PULSES DECREASED NOAH Conclusion RT YURIDIA:1.20 LT YURIDIA:1.31 TBI:UNABLE TO OBTAIN NOAH DAMPENED WAVEFORMS SEEN ON THE RIGHT PULSES DECREASED NOAH foot x ray neg cardiology consult- recommends: Assessment and plan all Dx Assessment and Plan for all problems:: 1. Discussed with Dr. Woods who is covering for Dr. Yarbrough. Due to the patient's contractures, she would not be a candidate for lower extremity angiogram. In discussing the patient's physical findings with Dr. Woods, he suspects that she has had some sort of embolic event (such as calcium emboli or plaque rupture) despite anticoagulation therapy with Xarelto. Preliminary ABIs would suggest extensive calcification of legs with falsely elevated readings. Patien t's severe thrombocytopenia prohibits treatment with antiplatelet therapy but would recommend resuming anticoagulation therapy (Xarelto 20 mg daily as long as her creatinine clearance >51). 2. Unfortunately, Nothing further to add/recommend except palliative care. consult podiatry: recommends:- Assessment and plan all Dx Assessment and Plan for all problems:: Physician Attestation I was present during all of the critical components of the consult. [facility] cardiology did see the patient with us. The patient was seen, evaluated and examined by me. I have read the office note that was documented by the WEARING APPAREL ASSEMBLER and agree with the documentation. US Arterial vascular study: Findings: RT YURIDIA:1.20 LT YURIDIA:1.31 TBI:UNABLE TO OBTAIN NOAH DAMPENED WAVEFORMS SEEN ON THE RIGHT PULSES DECREASED NOAH Patient's toenails trimmed as above. Right plantar foot cleansed and utilizing an 11' blade blister popped. No purulence expressed. DSD applied. At this time, patient is not a surgical candidate. She is non-verbal and occasionally opens her eyes. She is significantly contracted. Nails were performed out of medical necessity to the length and to avoid her toenails digging into the skin and causing wounds. There is definite concern over healing potential due to the ischemic foot. Patient does not currently have open ulcers. Unless it becomes an emergency I would not do an amputation, she will likely not be able to heal it. I agree with cardiology and recommend palliative care. <Court Rodriguez - 06/27/19 16:42> Plan: 1. Decreased pedal pulses R09.89 Plan Skin Changes: Right foot/ purple toes and mid-foot, no capilallary refill on this side Check vascular studies: YURIDIA/toe pressures to evaluate for new skin changes; Patient is to have a STAT YURIDIA testing done this morning. 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 Nails were debrided xs 10 utilizing manual debridement with a nail nipper. 2. Patient tolerated the procedure well. 3 Recommend the use of sondra board to file nails down and keep thinner. 4 Follow up in 3 months or as needed. 5. Patient should call me sooner if any questions or concerns arise 3. Blister to the right foot plantar surface, was deroofed but left intact, culture was taken and sent to lab. Will be treated accordingly. 4. Site was redressed with a DSD, 4x4 gauze, omar and tape. This will need to be changed daily per nursing. 4. No plans for surgery at this present time 5. Keep legs elevated on pillows to reduce edema. Pt will be transferred back to [place] for palliative care with hospice. Pt has completed invanz for esbl uti. Objective Vital signs: Temp Pulse Resp BP Pulse Ox 97.7 F 58 L 18 125/61 100 06/29/19 08:00 06/29/19 08:00 06/29/19 08:00 06/29/19 08:00 06/29/19 08:00 no acute distress, thin, chronically ill appearing - *Routine HEENT Exam Head: Present: normocephalic Eye: Present: PERRL ENT: Present: mucous membranes moist - *Routine Neck Exam Present: supple - *Routine Respiratory Exam Present: decreased breath sounds, CTA bilaterally - *Routine Cardiovascular Exam Present: RRR - *Routine Abdominal Exam Present: soft, normoactive bowel sounds. Absent: tenderness - *Routine Exam Comments: grimaldo draining at bedside - *Routine Extremities Exam Absent: cyanosis, clubbing, edema Comments: left foot with purple areas to great toe and scabbed areas to foot with decrease pulses rt foot toes purple with this extending to mid foot with decrease pulses - *Routine Skin Exam Comments: left great toe with purple areas scattered scabbed areas rt foot with dark purple toes and purple extends to mid foot - *Routine Neurological Exam Present: alert opens eyes when spoken to non verbal - Routine Psychiatric Exam Present: unable to assess Results Labs on day of discharge: Preliminary micro results at discharge 06/27/19 10:45 Wound Culture - Preliminary Foot,Right NO GROWTH AFTER 24 HOURS 06/22/19 12:15 Blood Culture - Preliminary Blood - Additional Comments rounded with dr ghosh all orders per dr ghosh DS: Diagnosis - Discharge Diagnosis (1) UTI (urinary tract infection) Status: Acute (2) Sepsis with acute organ dysfunction and septic shock Status: Acute (3) Low body mass index (BMI) Status: Acute (4) JAXON (acute kidney injury) Status: Acute (5) Hypernatremia Status: Acute (6) Transaminitis Status: Acute (7) Hypothyroidism Status: Acute (8) Lower extremity arterial insufficiency, severe, right Status: Acute (9) Thrombocytopenia Status: Acute (10) ESBL (extended spectrum beta-lactamase) producing bacteria infection Status: Acute (11) UTI due to extended-spectrum beta lactamase (ESBL) producing Escherichia coli Status: Acute (12) Bacterial infection due to Morganella morganii Status: Acute (13) Ischemia of both lower extremities Status: Acute (14) Onychogryphosis Status: Acute (15) Nail dystrophy Status: Acute (16) Blister (nonthermal), right foot, initial encounter Status: Acute Discharge Plan - Patient Discharge Instructions ACTIVITY: Continue current activity DIET: continue same diet Patient Instructions: Urinary Tract Infection, Septic Shock, DI for Urinary Tract Infection (UTI), DI for Sepsis -- Adult, DI for Multiple Drug-resistant Organism (MDRO) Infection, DI for Extended Spectrum Beta-Lactamase Infection - Follow up Plan Follow up with: Dominick Benavides APRN [Advanced Practice Nurse] - Disposition: er [facility] Home Medications: Home Medications Medication Instructions Recorded Confirmed Type Acetaminophen 500 mg PO Q4HP PRN 04/22/17 06/22/19 History Lactulose [Lactulose 10gm/15ml 20 gm PO DAILYP PRN 04/22/17 06/22/19 History Oral Soln] Levothyroxine Sodium 75 mcg PO DAILY 04/22/17 06/22/19 History [Levothyroxine 50mcg (0.05mg) Tab] Loperamide HCl [Loperamide] 2 mg PO Q3HP PRN 04/22/17 06/22/19 History Sennosides/Docusate Sodium 2 each PO TID 03/24/18 06/22/19 History [Senna-S Tablet] Tramadol HCl [Tramadol 50mg 50 mg PO TID 03/24/18 06/22/19 History Tab] Docusate Sodium [Docusate Sod 250 mg PO BID 03/09/19 06/22/19 History Liquid 100mg/10mL udc] Mirtazapine [Remeron 15mg tablet] 15 mg PO HS 03/09/19 06/22/19 History Rivaroxaban [Xarelto 20mg Tablet*] 20 mg PO DAILY 03/09/19 06/22/19 History Omeprazole 20 mg PO DAILY 05/09/19 06/22/19 History Prescriptions/Medication Reconciliation: Continued Loperamide HCl [Loperamide] 2 mg PO Q3HP PRN PRN Reason: Diarrhea Lactulose [Lactulose 10gm/15ml Oral Soln] 20 gm PO DAILYP PRN PRN Reason: BOWEL CARE Acetaminophen 500 mg PO Q4HP PRN PRN Reason: As Needed For Fever Or Pain Tramadol HCl [Tramadol 50mg Tab] 50 mg PO TID Mirtazapine [Remeron 15mg tablet] 15 mg PO HS Docusate Sodium [Docusate Sod Liquid 100mg/10mL udc] 250 mg PO BID Levothyroxine Sodium [Levothyroxine 50mcg (0.05mg) Tab] 75 mcg PO DAILY Sennosides/Docusate Sodium [Senna-S Tablet] 2 each PO TID Rivaroxaban [Xarelto 20mg Tablet*] 20 mg PO DAILY Omeprazole 20 mg PO DAILY - Problem Reconciliation Problems Reviewed?: Yes
--- NOTE | 2019-06-29 09:54 | Progress Note ---
Subjective Date: 06/29/19 <Nyla Keen - 06/29/19 10:30> Time: 08:20 <Nyla Keen - 06/29/19 10:30> Principal diagnosis: Right Ischemia Foot <Nyla Keen - 06/29/19 10:30> Interval history: Patient resting in bed this morning, she will open her eyes when spoken to but no verbal response back. Patient's arms and legs are contracted but she does not appear to be in any distress. Pillow placed between thighs and feet. No improvement in the condition of her right foot, it remains a very dark purple in color to her toes and mid-foot. The Popped Blister that was on her plantar surface had a little bit of clear drainage coming from it some maceration noted. It was cleaned with Betadine, and then sterile scissors and pickup was used to remove the excess loose skin remaining. Then redressed the site with Betadine soaked 4x4 gauze, dry 4x4, and then omar to cover. The patient should have daily dressing changes until the site is healed as described above per nursing or if sent home per caregiver. <Nyla Keen - 06/29/19 10:30> PN: Obj Ex Vital signs: Temp Pulse Resp BP Pulse Ox 97.7 F 58 L 18 125/61 100 06/29/19 08:00 06/29/19 08:00 06/29/19 08:00 06/29/19 08:00 06/29/19 08:00 <Coutr Rodriguez - 06/30/19 14:42> Temp Pulse Resp BP Pulse Ox 97.7 F 58 L 18 125/61 100 06/29/19 08:00 06/29/19 08:00 06/29/19 08:00 06/29/19 08:00 06/29/19 08:00 <Nyla Keen - 06/29/19 10:30> - Constitutional no acute distress, somnolent <Nyla Keen 06/29/19 10:30> - Routine HEENT Exam Head: Present: normocephalic <Nyla Keen 06/29/19 10:30> ENT: Present: mucous membranes moist <Nyla Keen 06/29/19 10:30> - Routine Neck Exam Present: trachea midline. Absent: JVD <Nyla Keen 06/29/19 10:30> - Routine Respiratory Exam Absent: accessory muscle use <Nyla Keen 06/29/19 10:30> - Routine Extremities Exam Present: edema. Absent: normal capillary refill <Nyla Keen 06/29/19 10:30> Comments: See my detailed lower extremity exam. <Nyla Keen 06/29/19 10:30> - Detailed Lower Extremity Exam Foot/Toes: Left erythema, Left swelling <Nyla Keen 06/29/19 10:30> Top foot image: 1 - 1-Right mid-foot and all the toes and metatarsal area plantar surface, but dark purple extends upward toward the proximal ankle, with bright red erythema splotching on the ankle and slightly above the ankle, edema, decreased capillary refill, decreased pedal pulses DP/PT, dopplerable but remains weak. 2 - 2 - Left mid-foot splotchy erythema, some peeling epidermis, 2+pedal edema, decreased capillary refill, decreased pedal pulses DP/PT, dopplerable but remains weak. <Nyla Keen 06/29/19 10:30> Bottom foot image: 1 - 1 - Right foot plantar blister. Clear drainage, This was sent for a wound culture. No POP. No ascending cellulitis noted. Ischemic changes with no deep ulcerations or tracking noted. Non palpable pedal pulses and delayed CFT. <Nyla Keen 06/29/19 10:30> - Routine Back/Spine/Pelvis Exam Back/Spine: Absent: full ROM <Nyla Keen 06/29/19 10:30> - Routine Skin Exam Present: erythema, dry <Nyla Keen 06/29/19 10:30> - Routine Neurological Exam Absent: oriented X3 <Nyla Keen 06/29/19 10:30> She has been very lethargic throughout her hospital stay, she will respond with eyes opening but does not respond back verbally. <Nyla Keen 06/29/19 10:30> - Routine Psychiatric Exam Absent: anxious <Nyla Keen 06/29/19 10:30> - Urinary Catheter Management Dugan Cath placed during this visit: no <Court Rodriguez - 06/30/19 14:42> no <Nyla Keen 06/29/19 12:37> Progress Note: A&P (1) UTI (urinary tract infection) Status: Acute (2) Sepsis with acute organ dysfunction and septic shock Status: Acute (3) Low body mass index (BMI) Status: Acute (4) JAXON (acute kidney injury) Status: Acute (5) Hypernatremia Status: Acute (6) Transaminitis Status: Acute (7) Hypothyroidism Status: Acute (8) Lower extremity arterial insufficiency, severe, right Status: Acute (9) Thrombocytopenia Status: Acute (10) ESBL (extended spectrum beta-lactamase) producing bacteria infection Status: Acute (11) UTI due to extended-spectrum beta lactamase (ESBL) producing Escherichia coli Status: Acute (12) Bacterial infection due to Morganella morganii Status: Acute (13) Ischemia of both lower extremities Status: Acute (14) Onychogryphosis Status: Acute (15) Nail dystrophy Status: Acute (16) Blister (nonthermal), right foot, initial encounter Status: Acute <Nyla Keen 06/29/19 12:37> (1) UTI (urinary tract infection) Status: Acute (2) Sepsis with acute organ dysfunction and septic shock Status: Acute (3) Low body mass index (BMI) Status: Acute (4) JAXON (acute kidney injury) Status: Acute (5) Hypernatremia Status: Acute (6) Transaminitis Status: Acute (7) Hypothyroidism Status: Acute (8) Lower extremity arterial insufficiency, severe, right Status: Acute (9) Thrombocytopenia Status: Acute (10) ESBL (extended spectrum beta-lactamase) producing bacteria infection Status: Acute (11) UTI due to extended-spectrum beta lactamase (ESBL) producing Escherichia coli Status: Acute (12) Bacterial infection due to Morganella morganii Status: Acute (13) Ischemia of both lower extremities Status: Acute (14) Onychogryphosis Status: Acute (15) Nail dystrophy Status: Acute (16) Blister (nonthermal), right foot, initial encounter Status: Acute <Court Rodriguez - 06/30/19 14:42> Assessment and Plan for All Diagnoses:: Physician Attestation I was present during all of the critical components of the office visit. The patient was seen, evaluated and examined by me. I have read the office note that was documented by the staff and/or TECHNICAL WRITER and agree with the documentation. <MichaelCourt - 06/30/19 14:42> Plan: 1. 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 Nails were debrided xs 10 utilizing manual debridement with a nail nipper. 2. Patient tolerated the procedure well. 3 Recommend the use of sondra board to file nails down and keep thinner. 4 Follow up in 3 months or as needed. 5. Patient should call me sooner if any questions or concerns arise Patient's Right plantar foot cleansed and utilizing sterile scissors and pick- ups to remove loose skin from the popped blister. No purulence expressed. Betadine soaked 4x4 gauze, dry 4x4 gauze and omar applied. At this time, patient is not a surgical candidate. She is non-verbal and occasionally opens her eyes. She is significantly contracted. Nails were performed out of medical necessity to the length and to avoid her toenails digging into the skin and causing wounds. There is definite concern over healing potential due to the ischemic foot. Patient does not currently have open ulcers. Unless it becomes an emergency I would not do an amputation, she will likely not be able to heal it. I agree with cardiology and recommend palliative care (Per Dr. Rodriguez). Plan: 3. Blister to the right foot plantar surface, was deroofed, loose skin removed today. 4.Culture taken from the right plantar surface blister is still pending. 5. Site was redressed with a DSD, 4x4 gauze, omar and tape. 6. No plans for surgery at this present time; Unless it becomes an emergency I would not do an amputation, she will likely not be able to heal it. I agree w ith cardiology and recommend palliative care (Per Dr. Rodriguez). 7. Keep legs elevated on pillows to reduce edema. 8.Daily dressing changes per nursing or per caregiver when discharged. 9.Dressing changes: Betadine soaked 4x4 gauze, dry 4x4 gauze, omar to cover <Nyla Keen - 06/29/19 10:30>
== END 2019-06-29 11:30 | DRG 871 ==
LOC: ER 09:47 → 2ND 13:17
PROVIDERS: ADMIT Emergency Medicine; ATTEND Emergency Medicine
CPT/HCPCS: 36415; 71010; 71045; 73630; 80048; 80053; 81001; 83605; 85007; 85025; 86140; 87040; 87070; 87075; 87086; 87088; 87186; 87205; 93923; 94761; 96365; 96367; 99285; J1335